=== PATIENT | male | born 1940 | race Caucasian/White ===

== ENCOUNTER → 2019-06-15 | Outpatient (CLI) | payer MEDICARE, BC ==
[2019-06-15 23:21] LABS: African American GFR (CKD) 99.9 (60.0-200.0); Anion Gap 8.7 mmol/L (4.00-12.00); Calcium 9.5 mg/dL (8.7-10.3); Carbon Dioxide 29.3 mmol/L (21.6-31.8); Non-African American GFR(CKD) 86.2 (60.0-200.0); Potassium 3.6 mmol/L (3.5-5.5)
[2019-06-16 00:14] LABS: Hemoglobin A1C 9.8 % (4.0-6.0)
== END | disposition home or self-care (01) ==
LOC: LABWHC1 14:43
PROVIDERS: ATTEND Urology
DX: R73.9 Hyperglycemia, unspecified (principal); R97.20 Elevated prostate specific antigen [PSA]
CPT/HCPCS: 36415; 80048; 83036; 84153

== ENCOUNTER → 2019-12-18 | Outpatient (CLI) | payer MEDICARE, BC | END | disposition home or self-care (01) | LOC: LABWHC1 09:30 → MERGE 09:30 | PROVIDERS: ATTEND Internal Medicine Critical Care Medicine | DX: R05 Cough (principal); R06.02 Shortness of breath; R43.9 Unspecified disturbances of smell and taste; K92.89 Other specified diseases of the digestive system ==

== ENCOUNTER → 2019-12-27 | Outpatient (CLI) | payer MEDICARE, BC ==
--- NOTE | 2019-12-28 09:55 | ECHOF ---
Referral Reason:I50.9 CHF MEASUREMENTS -------- HEIGHT: 177.8 cm WEIGHT: 97.5 kg BP: RVIDd: 3.6 cm (< 3.3) IVSd: 1.1 cm (0.6 - 1.1) LVIDd: 4.0 cm (3.9 - 5.3) LVPWd: 1.3 cm (0.6 - 1.1) IVSs: 1.6 cm LVIDs: 2.2 cm LVPWs: 2.0 cm LAESV Index (A-L): 15.20 ml/m Ao Diam: 2.9 cm (2.0 - 3.7) AV Cusp: 1.9 cm (1.5 - 2.6) MV E Nirmal: 0.43 m/s MV DecT: 158 ms MV A Nirmal: 0.89 m/s MV E/A Ratio: 0.49 RAP: 5.00 mmHg RVSP: 30.35 mmHg FINDINGS -------- Sinus rhythm. This was a technically difficult study with suboptimal views. The left ventricular size is normal. There is mild concentric left ventricular hypertrophy. Overa ll left ventricular systolic function is normal with, an EF between 55 - 60 %. The diastolic fillin g pattern is normal for the age of the patient 8.23. The right ventricle is mildly enlarged. Normal LA size by volume 22+/-6 ml/m2. The right atrium was not well visualized. Lumason used Interatrial and interventricular septum intact. The aortic valve is trileaflet, and appears structurally normal. No aortic stenosis or regurgitation. The mitral valve is normal. No mitral regurgitation. Mild tricuspid regurgitation present. There is no evidence of pulmonary hypertension. The right v entricular systolic pressure, as measured by Doppler, is 30.35mmHg. There is no pulmonic regurgitation present. The aortic root size is normal. IVC Not well visulized. There is no pericardial effusion. CONCLUSIONS -------- 1. There is mild concentric left ventricular hypertrophy. 2. Overall left ventricular systolic function is normal with, an EF between 55 - 60 %. 3. The diastolic filling pattern is normal for the age of the patient 8.23 4. The right ventricle is mildly enlarged. 5. Normal LA size by volume 22+/-6 ml/m2. 6. Lumason used 7. The aortic valve is trileaflet, and appears structurally normal. No aortic stenosis or regurgitati on. 8. The mitral valve is normal. 9. Mild tricuspid regurgitation present. 10. There is no pericardial effusion. GEOPHYSICAL PROSPECTING PERMIT AGENT: Margaret Chapa RDCS
== END | disposition home or self-care (01) ==
LOC: RADECHMAIN 11:53
PROVIDERS: ATTEND Internal Medicine Critical Care Medicine
DX: I07.1 Rheumatic tricuspid insufficiency (principal)
CPT/HCPCS: C8929; Q9950; 93306

== ENCOUNTER 2019-12-31 14:06 | Inpatient (IN) | payer MEDICARE, BC ==
--- NOTE | 2019-12-31 14:48 | ED ---
General Adult HPI - General Chief complaint: Weakness Stated complaint: Chest Pain Time Seen by Provider: 12/31/19 14:21 Source: patient Mode of arrival: wheelchair Limitations: physical limitation - History of Present Illness Initial comments: 79-year-old male patient presents to the emergency department today with multiple complaints. Patient states that he is feeling run down, fatigued, short of breath, and weak. He is also reporting dizziness and nausea. States that he was recently diagnosed with congestive heart failure by his dairy tester. [facility] they have been giving him Lasix for the last 3-4 days to get some fluid off. States he has been having increased leg swelling which did improve with the Lasix. States that whenever he ambulates or does any physical activity become short of breath. He is reporting occasional sharp stabbing chest pains. Denies aggravating or relieving factors. He reports dizziness with standing. Denies any syncope. States he does have a persistent nonproductive cough. Denies any fever or chills. States he has been very nauseated and unable to eat or drink related to this. Denies any constipation or diarrhea. States he does feel bloated in his abdomen. Patient denies any recent rash, abdominal pain, nausea, vomiting, diarrhea, constipation, back pain, numbness, tingling, hematuria, dysuria, urinary urgency, urinary frequency, headache, visual changes, or any other complaints. - Related Data Home Medications Medication Instructions Recorded Confirmed Atorvastatin Calcium [Lipitor] 40 mg PO HS 12/31/19 12/31/19 Ergocalciferol (Vitamin D2) 50,000 unit PO SAN 12/31/19 12/31/19 [Drisdol] Furosemide [Lasix] 20 mg PO DAILY 12/31/19 12/31/19 Furosemide [Lasix] 40 mg PO DAILY 12/31/19 12/31/19 Insulin Glargine,Hum.rec.anlog 10 unit SQ DAILY 12/31/19 12/31/19 [Lantus Solostar] Levocetirizine Dihydrochloride 5 mg PO HS PRN 12/31/19 12/31/19 [Xyzal] Levothyroxine Sodium [Synthroid] 175 mcg PO [id number] 12/31/19 12/31/19 Metolazone [Zaroxolyn] 2.5 mg PO DAILY 12/31/19 12/31/19 Metoprolol Succinate [Toprol XL] 25 mg PO DAILY 12/31/19 12/31/19 Potassium Chloride ER [K-Dur 20] 20 meq PO DAILY 12/31/19 12/31/19 metFORMIN HCL 1,000 mg PO DAILY 12/31/19 12/31/19 Allergies Allergy/AdvReac Type Severity Reaction Status Date / Time Penicillins Allergy Swelling Verified 12/31/19 16:51 Review of Systems ROS Statement: Those systems with pertinent positive or pertinent negative responses have been documented in the HPI. ROS Other: All systems not noted in ROS Statement are negative. Past Medical History Past Medical History: Heart Failure, Diabetes Mellitus, Hyperlipidemia, Hypert ension History of Any Multi-Drug Resistant Organisms: None Reported Past Surgical History: Orthopedic Surgery Additional Past Surgical History / Comment(s): Thyroid removal Past Psychological History: No Psychological Hx Reported Smoking Status: Former smoker Past Alcohol Use History: Occasional Past Drug Use History: None Reported General Exam Limitations: physical limitation General appearance: alert, in no apparent distress, other (Physical well-develop ed, well-nourished adult male patient in no acute distress. Vital signs upon presentation are temperature 97.9F, pulse 110, respirations 18, blood pressure 135/86, pulse ox 96% on room air.) Eye exam: Present: normal appearance, PERRL, EOMI. Absent: scleral icterus, conjunctival injection, periorbital swelling ENT exam: Present: normal exam, normal oropharynx, mucous membranes moist Respiratory exam: Present: normal lung sounds bilaterally. Absent: respiratory distress, wheezes, rales, rhonchi, stridor Cardiovascular Exam: Present: normal rhythm, tachycardia, normal heart sounds. Absent: systolic murmur, diastolic murmur, rubs, gallop, clicks GI/Abdominal exam: Present: soft, distended, normal bowel sounds. Absent: tenderness, guarding, rebound, rigid Neurological exam: Present: alert, oriented X3, CN II-XII intact Psychiatric exam: Present: normal affect, normal mood Skin exam: Present: warm, dry, intact, normal color. Absent: rash Course Vital Signs 12/31/19 12/31/19 14:09 14:13 Temperature 97.9 F Pulse Rate 110 H Respiratory 18 20 Rate Blood Pressure 135/86 O2 Sat by Pulse 96 Oximetry EKG Findings - EKG Comments: EKG Findings:: EKG obtained at 1503 shows sinus tachycardia with a ventricular rate of 108, WA interval 176, QRS duration 80, QT 350, QTC 469. No evidence for ST elevation or depression. Medical Decision Making - Medical Decision Making 79-year-old male patient presents to the emergency department today for evaluation of generalized weakness, nausea, dizziness, abdominal distention, and shortness of breath. Physical examination did reveal abdominal distention, no tenderness. He did have edema to the bilateral lower extremities. Lung sounds are clear to auscultation. Labs reviewed and did reveal decreased platelet count of 47, elevated INR 1.6, sodium 129, potassium 3.0, BUN 21, glucose 251, lactic acid 4.4, calcium 7.8, bilirubin 3.0, alk phos 279, BNP is 380, initial troponin is negative at 0.012. CT abdomen and pelvis was obtained and did show evidence for a right renal mass with suspicious calcification. There is also possibility of lytic lesions to the pelvis. Patient will be admitted to the hospital for replacement of his potassium and sodium. Sodium will be replaced very gently due to recent diagnosis of heart failure. We will consult urology and oncology. Dr. Sarabia will be consulted as he is the patient's primary care physician. - Lab Data Result diagrams: 12/31/19 14:56 12/31/19 14:56 Lab Results 12/31/19 12/31/19 12/31/19 Range/Units 14:56 14:56 14:56 WBC 5.1 (3.8-10.6) k/uL RBC 4.35 (4.30-5.90) m/uL Hgb 12.5 L (13.0-17.5) gm/dL Hct 37.9 L (39.0-53.0) % MCV 87.2 (80.0-100.0) fL MCH 28.8 (25.0-35.0) pg MCHC 33.0 (31.0-37.0) g/dL RDW 14.7 (11.5-15.5) % Plt Count 47 L (150-450) k/uL Neutrophils % 73 % Lymphocytes % 15 % Monocytes % 9 % Eosinophils % 1 % Basophils % 1 % Neutrophils # 3.8 (1.3-7.7) k/uL Lymphocytes # 0.8 L (1.0-4.8) k/uL Monocytes # 0.4 (0-1.0) k/uL Eosinophils # 0.1 (0-0.7) k/uL Basophils # 0.0 (0-0.2) k/uL Hypochromasia Slight PT 15.7 H (9.0-12.0) sec INR 1.6 H (<1.2) APTT 30.1 H (22.0-30.0) sec Sodium 129 L (137-145) mmol/L Potassium 3.0 L (3.5-5.1) mmol/L Chloride 90 L (98-107) mmol/L Carbon Dioxide 27 (22-30) mmol/L Anion Gap 12 mmol/L BUN 21 H (9-20) mg/dL Creatinine 0.83 (0.66-1.25) mg/dL Est GFR (CKD-EPI)AfAm >90 (>60 ml/min/1.73 sqM) Est GFR (CKD-EPI)NonAf 84 (>60 ml/min/1.73 sqM) Glucose 251 H (74-99) mg/dL Lactic Ac Sepsis Rflx Plasma Lactic Acid Tee (0.7-2.0) mmol/L Calcium 7.8 L (8.4-10.2) mg/dL Magnesium 1.9 (1.6-2.3) mg/dL Total Bilirubin 3.0 H (0.2-1.3) mg/dL AST 58 (17-59) U/L ALT 22 (4-49) U/L Alkaline Phosphatase 279 H (38-126) U/L Troponin I (0.000-0.034) ng/mL NT-Pro-B Natriuret Pep pg/mL Total Protein 5.7 L (6.3-8.2) g/dL Albumin 2.7 L (3.5-5.0) g/dL 12/31/19 12/31/19 12/31/19 Range/Units 14:56 14:56 14:56 WBC (3.8-10.6) k/uL RBC (4.30-5.90) m/uL Hgb (13.0-17.5) gm/dL Hct (39.0-53.0) % MCV (80.0-100.0) fL MCH (25.0-35.0) pg MCHC (31.0-37.0) g/dL RDW (11.5-15.5) % Plt Count (150-450) k/uL Neutrophils % % Lymphocytes % % Monocytes % % Eosinophils % % Basophils % % Neutrophils # (1.3-7.7) k/uL Lymphocytes # (1.0-4.8) k/uL Monocytes # (0-1.0) k/uL Eosinophils # (0-0.7) k/uL Basophils # (0-0.2) k/uL Hypochromasia PT (9.0-12.0) sec INR (<1.2) APTT (22.0-30.0) sec Sodium (137-145) mmol/L Potassium (3.5-5.1) mmol/L Chloride (98-107) mmol/L Carbon Dioxide (22-30) mmol/L Anion Gap mmol/L BUN (9-20) mg/dL Creatinine (0.66-1.25) mg/dL Est GFR (CKD-EPI)AfAm (>60 ml/min/1.73 sqM) Est GFR (CKD-EPI)NonAf (>60 ml/min/1.73 sqM) Glucose (74-99) mg/dL Lactic Ac Sepsis Rflx Plasma Lactic Acid Tee 4.4 H* (0.7-2.0) mmol/L Calcium (8.4-10.2) mg/dL Magnesium (1.6-2.3) mg/dL Total Bilirubin (0.2-1.3) mg/dL AST (17-59) U/L ALT (4-49) U/L Alkaline Phosphatase (38-126) U/L Troponin I <0.012 (0.000-0.034) ng/mL NT-Pro-B Natriuret Pep 380 pg/mL Total Protein (6.3-8.2) g/dL Albumin (3.5-5.0) g/dL 12/31/19 Range/Units 15:39 WBC (3.8-10.6) k/uL RBC (4.30-5.90) m/uL Hgb (13.0-17.5) gm/dL Hct (39.0-53.0) % MCV (80.0-100.0) fL MCH (25.0-35.0) pg MCHC (31.0-37.0) g/dL RDW (11.5-15.5) % Plt Count (150-450) k/uL Neutrophils % % Lymphocytes % % Monocytes % % Eosinophils % % Basophils % % Neutrophils # (1.3-7.7) k/uL Lymphocytes # (1.0-4.8) k/uL Monocytes # (0-1.0) k/uL Eosinophils # (0-0.7) k/uL Basophils # (0-0.2) k/uL Hypochromasia PT (9.0-12.0) sec INR (<1.2) APTT (22.0-30.0) sec Sodium (137-145) mmol/L Potassium (3.5-5.1) mmol/L Chloride (98-107) mmol/L Carbon Dioxide (22-30) mmol/L Anion Gap mmol/L BUN (9-20) mg/dL Creatinine (0.66-1.25) mg/dL Est GFR (CKD-EPI)AfAm (>60 ml/min/1.73 sqM) Est GFR (CKD-EPI)NonAf (>60 ml/min/1.73 sqM) Glucose (74-99) mg/dL Lactic Ac Sepsis Rflx Y Plasma Lactic Acid Tee (0.7-2.0) mmol/L Calcium (8.4-10.2) mg/dL Magnesium (1.6-2.3) mg/dL Total Bilirubin (0.2-1.3) mg/dL AST (17-59) U/L ALT (4-49) U/L Alkaline Phosphatase (38-126) U/L Troponin I (0.000-0.034) ng/mL NT-Pro-B Natriuret Pep pg/mL Total Protein (6.3-8.2) g/dL Albumin (3.5-5.0) g/dL - Radiology Data Radiology results: report reviewed, image reviewed Two-view x-ray of the chest is obtained. Report reviewed in its entirety. Impression by Dr. Crane shows question small effusions and associated atelectasis, correlate to exclude pneumonia. CT abdomen and pelvis is obtained report was reviewed in its entirety. Impression by Dr. Walton shows no bowel instruction. Hepatosplenomegaly with possible fatty infiltration of the liver underlying hepatocellular disease. Correlate clinically. Cannot exclude infiltrative process or disease in the spleen versus diminished perfusion. Small to moderate amount of pelvic ascites. Small amount diffuse soft tissue anasarca. Suspicious part exophytic cystic lesion lower pole right kidney, at least Bosniak type III lesion. Surgical referral advised. Subtle nonspecific lytic lesions, lytic metastatic disease not excluded particularly given above #3 finding. Disposition Clinical Impression: Right kidney mass, Hyponatremia, Hypokalemia, Ascites Disposition: ADMITTED IP TO THIS HOSP Condition: Serious Referrals: Donald Sarabia DO [Primary Care Provider] - 1-2 days Decision to Admit Reason: Admit from EC Decision Date: 12/31/19 Decision Time: 18:17
[2019-12-31 15:20] LABS: Basophils % (A) 1 %; Eosinophils # (A) 0.1 k/uL (0-0.7); Eosinophils % (A) 1 %; HCT 37.9 % (39.0-53.0); Hypochromasia Slight; Lymphocytes # (A) 0.8 k/uL (1.0-4.8); Lymphocytes % (A) 15 %; MCH 28.8 pg (25.0-35.0); MCV 87.2 fL (80.0-100.0); Mean Platelet Volume 11.5; Monocytes # (A) 0.4 k/uL (0-1.0); Monocytes % (A) 9 %; Neutrophils # (A) 3.8 k/uL (1.3-7.7); Neutrophils % (A) 73 %; RBC 4.35 m/uL (4.30-5.90); RDW 14.7 % (11.5-15.5); WBC 5.1 k/uL (3.8-10.6)
[2019-12-31 15:26] LABS: HGB 12.5 gm/dL (13.0-17.5)
[2019-12-31 15:27] LABS: Platelet Count 47 k/uL (150-450)
[2019-12-31 15:31] LABS: INR 1.6 (<1.2); Partial Thromboplastin Time 30.1 sec (22.0-30.0); Prothrombin Time 15.7 sec (9.0-12.0)
[2019-12-31 15:32] LABS: AST 58 U/L (17-59); African American GFR (CKD) >90 (>60 ml/min/1.73 sqM); Albumin 2.7 g/dL (3.5-5.0); Alkaline Phosphatase 279 U/L (38-126); Anion Gap 12 mmol/L; Blood Urea Nitrogen 21 mg/dL (9-20); Calcium 7.8 mg/dL (8.4-10.2); Carbon Dioxide 27 mmol/L (22-30); Chloride 90 mmol/L (98-107); Glucose 251 mg/dL (74-99); Magnesium 1.9 mg/dL (1.6-2.3); Non-African American GFR(CKD) 84 (>60 ml/min/1.73 sqM); Sodium 129 mmol/L (137-145); Total Protein 5.7 g/dL (6.3-8.2)
--- NOTE | 2019-12-31 15:38 | XR ---
EXAMINATION TYPE: XR chest 2V DATE OF EXAM: 12/31/2019 COMPARISON: R chest x-ray 12/26/2019 HISTORY: Cough TECHNIQUE: Frontal and lateral views of the chest are obtained. FINDINGS: There is blunting the costophrenic angle similar to prior exam. Lung IMs are low. No evide nt pneumothorax. Cardiac mediastinal silhouette, pulmonary vascularity and ryne not significant harris ed. There are overlying cardiac leads. Minimal patchy basilar density is noted. IMPRESSION: Question small effusions and associated atelectasis, correlate to exclude pneumonia.
[2019-12-31 15:39] LABS: ALT 22 U/L (4-49)
[2019-12-31] MEDS ORDERED: ONDANSETRON 4 MG/2 ML VIAL IVP STA (15:56)
[2019-12-31] MEDS ORDERED: Potassium Replacement Protocol 1 EACH MISC MISCELLANE PRN (15:56)
[2019-12-31] MEDS: POTASSIUM CHLORIDE 10 MEQ in WATER FOR INJECTION 1 100ML.BAG IVPB SCH ×3 (17:29→19:56)
--- NOTE | 2019-12-31 17:44 | CT ---
EXAMINATION TYPE: CT abdomen pelvis w con DATE OF EXAM: 12/31/2019 COMPARISON: None. HISTORY: Abdominal distention, nausea. CT DLP: 1608.6 mGycm, Automated Exposure Control for Dose Reduction was Utilized. CONTRAST: CT scan of the abdomen and pelvis is performed without oral but with IV Contrast, patient injected wi th 100 mL of Isovue 300. FINDINGS: LUNG BASES: There are at least small right greater left pleural effusions with associated compressive atelectasis.. LIVER/GB: Enlarged liver that is heterogeneously hypodense. Small amount of ascites along the right i nferior margin. PANCREAS: No significant abnormality is seen. SPLEEN: Enlarged heterogeneous hypodense spleen measuring 18.2 cm long axis coronal image 70. ADRENALS: Slightly asymmetric thickening left adrenal gland could reflect benign lipid rich hyperplas ia. KIDNEYS: Central 9 mm calcification right kidney axial image 52 could reflect vascular calcification or lower pole calculus. Symmetric cortical medullary uptake without hydronephrosis seen bilaterally. Simple appearing 2.3 cm thin-walled cyst upper pole left kidney delayed axial image 38. Exophytically from lower pole right kidney medially there is large cystic lesion measuring roughly 13 x 12.5 x 12. 5 cm with suspicious 1.4 cm solid nodular hyperdense probable enhancing component coronal image 45 al tono the superior aspect. Unremarkable bladder. BOWEL: Suboptimal evaluation without enteric contrast. No suspicious small or large bowel dilatation. . PROSTATE/SEMINAL VESICLES: Mildly enlarged bulging on bladder base. LYMPH NODES: No greater than 1cm abdominal or pelvic lymph nodes are appreciated. OSSEOUS STRUCTURES: Some sclerosis along the bilateral sacroiliac joints. Prominent multilevel spurri ng in the thoracic spine. Few nonspecific subtle lytic lesions for reference right iliac bone coronal image 91 and superior ant erior L4 vertebra sagittal image 72. OTHER: Small to moderate amount of pelvic ascites. Mild to borderline moderate diffuse subcutaneous edema or soft tissue anasarca. Oval well-defined 4.6 x 2.4 x 8.0 cm lesion axial image 40 but reflect posterior subcutaneous lipoma IMPRESSION: 1. No bowel obstruction. 2. Hepatosplenomegaly with possible fatty infiltration of the liver or underlying hepatocellular dise ase. Correlate clinically. Cannot exclude infiltrative process or disease in the spleen versus dimini shed perfusion. [id number] amount of pelvic ascites. Small amount of diffuse soft tissue anasa rca. 3. Suspicious large exophytic cystic lesion lower pole right kidney, at least Bosniak type III lesion . Surgical referral advised. 4. Subtle nonspecific lytic lesions, lytic metastatic disease cannot be excluded particularly given a jesse #3 Finding.
[2019-12-31] MEDS ORDERED: ONDANSETRON 4 MG/2 ML VIAL IVP PRN (18:09)
[2019-12-31] MEDS ORDERED: NALOXONE 0.4 MG/ML 1 ML VIAL IV PRN (18:09)
[2019-12-31 19:03] LABS: Appearance,Urine Clear (Clear); Bacteria,Urine Rare /hpf; Bilirubin,Urine 1+ (Negative); Blood,Urine Trace (Negative); Color,Urine Yellow; Glucose,Urine (UA) Negative (Negative); Hyaline Casts,Urine 58 /lpf (0-2); Ketones,Urine Negative (Negative); Leukocyte Esterase,Urine Negative (Negative); Mucus,Urine Occasional /hpf; Nitrite,Urine Negative (Negative); Protein,Urine 1+ (Negative); RBC,Urine 5 /hpf (0-5); Squamous Epithelial Cell,Urine <1 /hpf (0-4); WBC,Urine 4 /hpf (0-5)
[2019-12-31 19:04] LABS: Specific Gravity,Urine >1.050 (1.001-1.035)
[2019-12-31] MEDS: SODIUM CHLORIDE 0.9% 500 ML 500 ML IV SCH (19:56)
[2020-01-01] MEDS: POTASSIUM CHLORIDE 10 MEQ in WATER FOR INJECTION 1 100ML.BAG IVPB SCH (00:02)
[2020-01-01 04:58] LABS: ALT 17 U/L (4-49); AST 58 U/L (17-59); African American GFR (CKD) >90 (>60 ml/min/1.73 sqM); Albumin 2.7 g/dL (3.5-5.0); Alkaline Phosphatase 250 U/L (38-126); Anion Gap 11 mmol/L; Blood Urea Nitrogen 23 mg/dL (9-20); Calcium 7.6 mg/dL (8.4-10.2); Carbon Dioxide 25 mmol/L (22-30); Chloride 91 mmol/L (98-107); Glucose 179 mg/dL (74-99); Non-African American GFR(CKD) 83 (>60 ml/min/1.73 sqM); Potassium 3.3 mmol/L (3.5-5.1); Sodium 127 mmol/L (137-145); Total Bilirubin 2.6 mg/dL (0.2-1.3); Total Protein 5.6 g/dL (6.3-8.2)
[2020-01-01 06:05] LABS: Glucose,Whole Blood 183 mg/dL (75-99)
[2020-01-01] MEDS ORDERED: LORATADINE 10 MG TAB PO PRN (06:20)
[2020-01-01] MEDS ORDERED: POTASSIUM CHLORIDE ER 20 MEQ TAB.ER PO STA (06:21)
[2020-01-01] MEDS: LEVOTHYROXINE 50 MCG TAB PO SCH (06:36)
[2020-01-01] MEDS: INSULIN ASPART (NovoLOG) 100 UNIT/ML VIAL SQ SCH ×4 (06:37→22:03)
[2020-01-01] MEDS: INSULIN DETEMIR (LEVEMIR) 100 UNIT/ML SYR SQ SCH (06:42)
[2020-01-01] MEDS ORDERED: HEPARIN SODIUM,PORCINE 5,000 UNIT/ML 1 ML VIAL SQ SCH (09:00)
[2020-01-01] MEDS ORDERED: metFORMIN 500 MG TAB PO SCH (09:00)
[2020-01-01] MEDS: FAMOTIDINE 20 MG TAB PO SCH ×2 (09:06→21:24)
[2020-01-01] MEDS: METOPROLOL SUCCINATE (ER) 25 MG TAB.ER.24H PO SCH (09:06)
--- NOTE | 2020-01-01 10:21 | P.GSCN ---
History of Present Illness Consult date: 01/01/20 Reason for Consult: Right renal mass History of present illness: The patient is a 79-year-old male admitted through the emergency room last night for evaluation of increasing weakness associated with congestive heart failure and increasing pedal edema. As part of his evaluation in the emergency room a computed tomography scan of the abdomen and pelvis with IV contrast was obtained. The patient was discovered to have a 13 cm cystic growth arising from the lower pole of the right kidney. A 1.4 cm enhancing nodule was noted in the cyst wall and was suggestive of renal cell carcinoma arising in a cyst. I was asked to see the patient for further evaluation. The patient says he's had increasing weakness over the last 2-3 weeks. Proxi kelsie 2 weeks ago he developed bilateral leg edema. He was seen by Dr. Medina and was started on Lasix. Despite this he continued to have reduced energy and increasing nausea. He was directed to come to the emergency room for evaluation. In the emergency room he was noted to have a total bilirubin of 2.6, alkaline phosphatase of 250, total protein of 5.6 and albumin of 2.7. In addition to the renal abnormality described above the patient was noted to have right pleural effusion and some ascites. Images of the bones suggested a possible 1 cm lytic lesion in the right iliac bone. Patient has no previous imaging of his abdomen for comparison. The patient has no history of gross hematuria but believes he may have been noted to have microscopic hematuria by Dr. Foster in the past. He says he usually voids every 1-2 hours in the morning after he drinks his coffee and then every 2 or 3 hours later in the day. Usually voids 1-3 times at night depending on his fluid intake. Recently he has noted increasing hesitancy and urgency. He says that he has lost some weight since he was started on Lasix. Review of Systems - Constitutional Reports anorexia, Reports fatigue, Reports lethargy, Reports weight gain - Cardiovascular Reports edema, Reports high blood pressure, Reports shortness of breath, Denies chest pain, Denies orthopnea, Denies syncope - Respiratory Denies cough, Denies wheezing - Gastrointestinal Reports early satiety, Reports loss of appetite, Denies abdominal pain - Genitourinary Reports urinary hesitancy, Denies flank pain, Denies hematuria Past Medical History Past Medical History: Heart Failure, Diabetes Mellitus, Hyperlipidemia, Hypertension History of Any Multi-Drug Resistant Organisms: None Reported Past Surgical History: Orthopedic Surgery Additional Past Surgical History / Comment(s): Thyroid removal and arthroscopy left knee Past Psychological History: No Psychological Hx Reported Smoking Status: Former smoker (Quit smoking 40 years ago), Never smoker Past Alcohol Use History: Occasional Past Drug Use History: None Reported Medications and Allergies Home Medications Medication Instructions Recorded Confirmed Type Atorvastatin Calcium [Lipitor] 40 mg PO HS 12/31/19 12/31/19 History Ergocalciferol (Vitamin D2) 50,000 unit PO SAN 12/31/19 12/31/19 History [Drisdol] Furosemide [Lasix] 20 mg PO DAILY 12/31/19 12/31/19 History Furosemide [Lasix] 40 mg PO DAILY 12/31/19 12/31/19 History Insulin Glargine,Hum.rec.anlog 10 unit SQ DAILY 12/31/19 12/31/19 History [Lantus Solostar] Levocetirizine Dihydrochloride 5 mg PO HS PRN 12/31/19 12/31/19 History [Xyzal] Levothyroxine Sodium [Synthroid] 175 mcg PO MOTUWETHFRSA 12/31/19 12/31/19 History Metolazone [Zaroxolyn] 2.5 mg PO DAILY 12/31/19 12/31/19 History Metoprolol Succinate [Toprol XL] 25 mg PO DAILY 12/31/19 12/31/19 History Potassium Chloride ER [K-Dur 20] 20 meq PO DAILY 12/31/19 12/31/19 History metFORMIN HCL 1,000 mg PO DAILY 12/31/19 12/31/19 History Allergies Allergy/AdvReac Type Severity Reaction Status Date / Time Penicillins Allergy Swelling Verified 12/31/19 16:51 Surgical - Exam Vital Signs Temp Pulse Resp BP Pulse Ox 97.9 F 110 H 18 135/86 96 12/31/19 14:09 12/31/19 14:09 12/31/19 14:09 12/31/19 14:09 12/31/19 14:09 - General well developed, well nourished, no distress - ENT no hearing loss - Neck no masses, no lymphadectomy - Respiratory normal respiratory effort - Abdomen Abdomen: no tender, no masses, distended Hernia: none - Genitourinary normal penis with no external lesions, testicles non-tender Results - Labs 12/31/19 14:56 01/01/20 04:13 Abnormal Lab Results - Last 24 Hours (Table) 12/31/19 12/31/19 12/31/19 Range/Units 14:56 14:56 14:56 Hgb 12.5 L (13.0-17.5) gm/dL Hct 37.9 L (39.0-53.0) % Plt Count 47 L (150-450) k/uL Lymphocytes # 0.8 L (1.0-4.8) k/uL PT 15.7 H (9.0-12.0) sec INR 1.6 H (<1.2) APTT 30.1 H (22.0-30.0) sec Sodium 129 L (137-145) mmol/L Potassium 3.0 L (3.5-5.1) mmol/L Chloride 90 L (98-107) mmol/L BUN 21 H (9-20) mg/dL Glucose 251 H (74-99) mg/dL POC Glucose (mg/dL) (75-99) mg/dL Plasma Lactic Acid Tee (0.7-2.0) mmol/L Calcium 7.8 L (8.4-10.2) mg/dL Total Bilirubin 3.0 H (0.2-1.3) mg/dL Alkaline Phosphatase 279 H (38-126) U/L Total Protein 5.7 L (6.3-8.2) g/dL Albumin 2.7 L (3.5-5.0) g/dL Ur Specific [place] (1.001-1.035) Urine Protein (Negative) Urine Blood (Negative) Urine Bilirubin (Negative) Urine Bacteria (None) /hpf Hyaline Casts (0-2) /lpf Urine Mucus (None) /hpf 12/31/19 12/31/19 12/31/19 Range/Units 14:56 17:13 18:45 Hgb (13.0-17.5) gm/dL Hct (39.0-53.0) % Plt Count (150-450) k/uL Lymphocytes # (1.0-4.8) k/uL PT (9.0-12.0) sec INR (<1.2) APTT (22.0-30.0) sec Sodium (137-145) mmol/L Potassium (3.5-5.1) mmol/L Chloride (98-107) mmol/L BUN (9-20) mg/dL Glucose (74-99) mg/dL POC Glucose (mg/dL) (75-99) mg/dL Plasma Lactic Acid Tee 4.4 H* 7.8 H* (0.7-2.0) mmol/L Calcium (8.4-10.2) mg/dL Total Bilirubin (0.2-1.3) mg/dL Alkaline Phosphatase (38-126) U/L Total Protein (6.3-8.2) g/dL Albumin (3.5-5.0) g/dL Ur Specific [place] >1.050 H (1.001-1.035) Urine Protein 1+ H (Negative) Urine Blood Trace H (Negative) Urine Bilirubin 1+ H (Negative) Urine Bacteria Rare H (None) /hpf Hyaline Casts 58 H (0-2) /lpf Urine Mucus Occasional H (None) /hpf 12/31/19 01/01/20 01/01/20 Range/Units 21:36 00:31 04:13 Hgb (13.0-17.5) gm/dL Hct (39.0-53.0) % Plt Count (150-450) k/uL Lymphocytes # (1.0-4.8) k/uL PT (9.0-12.0) sec INR (<1.2) APTT (22.0-30.0) sec Sodium 127 L (137-145) mmol/L Potassium 3.3 L (3.5-5.1) mmol/L Chloride 91 L (98-107) mmol/L BUN 23 H (9-20) mg/dL Glucose 179 H (74-99) mg/dL POC Glucose (mg/dL) (75-99) mg/dL Plasma Lactic Acid Tee 6.0 H* 4.6 H* (0.7-2.0) mmol/L Calcium 7.6 L (8.4-10.2) mg/dL Total Bilirubin 2.6 H (0.2-1.3) mg/dL Alkaline Phosphatase 250 H (38-126) U/L Total Protein 5.6 L (6.3-8.2) g/dL Albumin 2.7 L (3.5-5.0) g/dL Ur Specific [place] (1.001-1.035) Urine Protein (Negative) Urine Blood (Negative) Urine Bilirubin (Negative) Urine Bacteria (None) /hpf Hyaline Casts (0-2) /lpf Urine Mucus (None) /hpf 01/01/20 01/01/20 01/01/20 Range/Units 04:13 06:04 07:03 Hgb (13.0-17.5) gm/dL Hct (39.0-53.0) % Plt Count (150-450) k/uL Lymphocytes # (1.0-4.8) k/uL PT (9.0-12.0) sec INR (<1.2) APTT (22.0-30.0) sec Sodium (137-145) mmol/L Potassium (3.5-5.1) mmol/L Chloride (98-107) mmol/L BUN (9-20) mg/dL Glucose (74-99) mg/dL POC Glucose (mg/dL) 183 H (75-99) mg/dL Plasma Lactic Acid Tee 3.4 H* 2.5 H* (0.7-2.0) mmol/L Calcium (8.4-10.2) mg/dL Total Bilirubin (0.2-1.3) mg/dL Alkaline Phosphatase (38-126) U/L Total Protein (6.3-8.2) g/dL Albumin (3.5-5.0) g/dL Ur Specific [place] (1.001-1.035) Urine Protein (Negative) Urine Blood (Negative) Urine Bilirubin (Negative) Urine Bacteria (None) /hpf Hyaline Casts (0-2) /lpf Urine Mucus (None) /hpf Diabetes panel 12/31/19 01/01/20 Range/Units 14:56 04:13 Sodium 129 L 127 L (137-145) mmol/L Potassium 3.0 L 3.3 L (3.5-5.1) mmol/L Chloride 90 L 91 L (98-107) mmol/L Carbon Dioxide 27 25 (22-30) mmol/L BUN 21 H 23 H (9-20) mg/dL Creatinine 0.83 0.86 (0.66-1.25) mg/dL Glucose 251 H 179 H (74-99) mg/dL Calcium 7.8 L 7.6 L (8.4-10.2) mg/dL AST 58 58 (17-59) U/L ALT 22 17 (4-49) U/L Alkaline Phosphatase 279 H 250 H (38-126) U/L Total Protein 5.7 L 5.6 L (6.3-8.2) g/dL Albumin 2.7 L 2.7 L (3.5-5.0) g/dL Calcium panel 12/31/19 01/01/20 Range/Units 14:56 04:13 Calcium 7.8 L 7.6 L (8.4-10.2) mg/dL Albumin 2.7 L 2.7 L (3.5-5.0) g/dL Pituitary panel 12/31/19 01/01/20 Range/Units 14:56 04:13 Sodium 129 L 127 L (137-145) mmol/L Potassium 3.0 L 3.3 L (3.5-5.1) mmol/L Chloride 90 L 91 L (98-107) mmol/L Carbon Dioxide 27 25 (22-30) mmol/L BUN 21 H 23 H (9-20) mg/dL Creatinine 0.83 0.86 (0.66-1.25) mg/dL Glucose 251 H 179 H (74-99) mg/dL Calcium 7.8 L 7.6 L (8.4-10.2) mg/dL Adrenal panel 12/31/19 01/01/20 Range/Units 14:56 04:13 Sodium 129 L 127 L (137-145) mmol/L Potassium 3.0 L 3.3 L (3.5-5.1) mmol/L Chloride 90 L 91 L (98-107) mmol/L Carbon Dioxide 27 25 (22-30) mmol/L BUN 21 H 23 H (9-20) mg/dL Creatinine 0.83 0.86 (0.66-1.25) mg/dL Glucose 251 H 179 H (74-99) mg/dL Calcium 7.8 L 7.6 L (8.4-10.2) mg/dL Total Bilirubin 3.0 H 2.6 H (0.2-1.3) mg/dL AST 58 58 (17-59) U/L ALT 22 17 (4-49) U/L Alkaline Phosphatase 279 H 250 H (38-126) U/L Total Protein 5.7 L 5.6 L (6.3-8.2) g/dL Albumin 2.7 L 2.7 L (3.5-5.0) g/dL - Imaging CT scan - abdomen: image reviewed Assessment and Plan (1) Right kidney mass Narrative/Plan: I explained to the patient that there is at least a 50% likelihood that the nodule present in the wall of the right renal cyst represents a carcinoma. It's unclear how long it has been present as the patient has no previous imaging for comparison. The patient has no evidence of retroperitoneal adenopathy. His right pleural effusion and ascites may be related to underlying liver disease. The abnormality noted in the right iliac bone is nonspecific but it would be reasonable to obtain a bone scan and computed tomography scan of the chest to ensure the patient has no evidence of metastatic disease. I discussed further observation versus surgical removal. At least at the present time there is no urgency for treatment of the right renal mass, especially in view of the patient's congestive heart failure and probable underlying liver disease.. The patient has seen Dr. Foster previously and I will let him know of his admission. Current Visit: Yes Status: Acute Code(s): N28.89 - OTHER SPECIFIED DISORDERS OF KIDNEY AND URETER SNOMED Code(s): 932017239
[2020-01-01] MEDS ORDERED: RX INFO: IV CONTRAST WAS GIVEN 1 EACH MISC MISCELLANE PRN (11:28)
[2020-01-01 12:16] LABS: Glucose,Whole Blood 179 mg/dL (75-99)
[2020-01-01 14:20] LABS: Hemoglobin A1C 9.2 % (4.0-6.0)
--- NOTE | 2020-01-01 15:04 | P.CNPUL ---
History of Present Illness Consult date: 01/01/20 Requesting physician: Unique Enamorado Reason for consult: other Chief complaint: Lower extremity swelling, weakness, nausea, loss of appetite History of present illness: 79-year-old white male patient with past medical history of essential hypertension, type 2 diabetes mellitus, hypothyroidism, hyperlipidemia, previous history of prostate cancer, former smoker, thyroid cancer status post thyroide ctomy and patient is now on thyroid replacement medications. Patient follows with Dr. Sarabia for primary care services. Patient follows with Dr. Janes Medina, and patient recently has been having increased issues with swelling of the lower extremities, increased abdominal fullness, and abdominal wall swelling, increased shortness of breath, and occasional dry nonproductive cough. And he was placed on Lasix without much improvement. He was recently placed on Zaroxolyn for persistent leg swelling and exertional dyspnea. His outpatient chest x-ray showed small bilateral pleural effusions. A recent, 12/18/2019 1 over his PCR was negative. On 12/31/2019 patient presented today emergency dep artment with multiple complaints, including feeling rundown, fatigued, shortness of breath and weakness, patient complains of a lack of appetite, complains of nausea, dizziness. Patient states that whenever he ambulates with does any physical activity he is very short of breath, is having occasional sharp stabbing chest pains. No syncopal episodes, no fever or chills. No constipation or diarrhea, no plans of bloating in the abdomen. Chest x-ray shows blunting of the costophrenic angles, consistent with small pleural effusions and associated atelectasis. Labs revealed white blood cell, 5.1, hemoglobin is 12.5, INR is 1.6, serum sodium is 129, potassium 3.0, chloride is 90, CO2 is 27, BUN is 21, creatinine 0.83, patient's lactic acid was elevated at 6.0, serum calcium was 7.8, magnesium 1.9, total bilirubin was elevated at 3.0, AST and ALT were within normal limits. Alkaline phosphatase was elevated at 279, troponin was negative at 0.02, proBNP was 380. Albumin was 2.7. Urinalysi s showed 1+ protein, trace blood, 1+ bilirubin, no significant white blood cell count, negative leuks, rare bacteria., No clear evidence of urinary tract infection. Afebrile, room air pulse ox 98%. Hemodynamically patient is stable, recent echocardiogram showed mild concentric LVH, EF is preserved at 55-60%, mild enlargement of the right ventricle, no aortic stenosis or regurgitation, normal mitral valve, mild tricuspid regurg no evidence of pulmonary hypertension with right-sided pressures of 30.3 mmHg. No pericardial effusion. Patient denies heavy alcohol intake, his daughter relays that she may have a few drinks in a week, not a heavy drinker. CT of the abdomen and pelvis showed hep atosplenomegaly with possible fatty infiltration of the liver and underlying hepatic cellular disease, could not exclude infiltrative process or disease in the spleen versus diminished perfusion. There was small to moderate amount of pelvic ascites, and small amount of diffuse soft tissue anasarca. There was a large exophytic cystic lesion at the lower pole of the right kidney and a surgical evaluation was recommended. And there was subtle nonspecific lytic lesions, with consideration of metastatic disease. On today's evaluation patient is sitting up in bed, appears to be in no acute distress, still has significant swelling in the lower extremities, 1-2+, and abdominal wall, he is on room air, does become dyspneic with exertion, but appears to be comfortable at rest, blood pressure 115/72, patient is afebrile, his incentive mechanism on the monitor with a controlled rate, denies any chest pain, only occasional cough, his diuretics are on hold, patient is receiving gentle hydration with 0.9 normal saline at a rate of 50 ML per hour. Today's sodium is 127. No seizures, no neurologic deficits, patient is providing detailed medical history. Review of Systems All systems: negative Constitutional: Denies chills, Denies fever Eyes: denies blurred vision, denies pain Ears, nose, mouth and throat: Denies headache, Denies sore throat Cardiovascular: Reports decreased exercise tolerance, Reports dyspnea on exertion, Reports edema, Reports leg edema, Denies chest pain, Denies shortness of breath Respiratory: Denies cough Gastrointestinal: Reports bloating, Reports loss of appetite, Reports nausea, Denies abdominal pain, Denies diarrhea, Denies vomiting Musculoskeletal: Denies myalgias Musculoskeletal: bilateral: ankle swelling Integumentary: Denies pruritus, Denies rash Neurological: Denies numbness, Denies weakness Psychiatric: Denies anxiety, Denies depression Endocrine: Denies fatigue, Denies weight change Past Medical History Past Medical History: Heart Failure, Diabetes Mellitus, Hyperlipidemia, Hypertension History of Any Multi-Drug Resistant Organisms: None Reported Past Surgical History: Orthopedic Surgery Additional Past Surgical History / Comment(s): Thyroid removal and arthroscopy left knee Past Psychological History: No Psychological Hx Reported Smoking Status: Former smoker (Quit smoking 40 years ago), Never smoker Past Alcohol Use History: Occasional Past Drug Use History: None Reported Medications and Allergies Home Medications Medication Instructions Recorded Confirmed Type Atorvastatin Calcium [Lipitor] 40 mg PO HS 12/31/19 12/31/19 History Ergocalciferol (Vitamin D2) 50,000 unit PO SAN 12/31/19 12/31/19 History [Drisdol] Furosemide [Lasix] 20 mg PO DAILY 12/31/19 12/31/19 History Furosemide [Lasix] 40 mg PO DAILY 12/31/19 12/31/19 History Insulin Glargine,Hum.rec.anlog 10 unit SQ DAILY 12/31/19 12/31/19 History [Lantus Solostar] Levocetirizine Dihydrochloride 5 mg PO HS PRN 12/31/19 12/31/19 History [Xyzal] Levothyroxine Sodium [Synthroid] 175 mcg PO MOTUWETHFRSA 12/31/19 12/31/19 History Metolazone [Zaroxolyn] 2.5 mg PO DAILY 12/31/19 12/31/19 History Metoprolol Succinate [Toprol XL] 25 mg PO DAILY 12/31/19 12/31/19 History Potassium Chloride ER [K-Dur 20] 20 meq PO DAILY 12/31/19 12/31/19 History metFORMIN HCL 1,000 mg PO DAILY 12/31/19 12/31/19 History Allergies Allergy/AdvReac Type Severity Reaction Status Date / Time Penicillins Allergy Swelling Verified 12/31/19 16:51 Physical Exam Vitals: Vital Signs Temp Pulse Pulse Resp BP BP Pulse Ox 01/01/20 12:00 83 16 115/72 98 01/01/20 11:44 16 01/01/20 08:00 96.8 F L 88 16 132/68 96 01/01/20 03:06 97.7 F 87 18 127/68 93 L 01/01/20 00:00 97.9 F 86 18 135/75 95 12/31/19 20:00 79 18 12/31/19 19:41 98.1 F 79 18 139/85 99 12/31/19 19:23 88 20 129/75 96 12/31/19 18:00 20 96 12/31/19 17:00 20 96 12/31/19 16:13 98 20 128/87 96 12/31/19 15:13 20 Intake and Output 12/31/19 01/01/20 01/01/20 22:59 06:59 14:59 Intake Total 0.9 240 Balance 0.9 240 Intake: Amount of Fluid Infused ( 0.9 ml) Oral 240 Other: Voiding Method Urinal Urinal Weight 90.718 kg 91.2 kg 91.2 kg GENERAL EXAM: Alert, very pleasant, 79-year-old, sitting up on the bed, currently on room air, his pulse ox is 90% on room air, comfortable in no apparent distress. HEAD: Normocephalic/atraumatic. EYES: Normal reaction of pupils, equal size. Conjunctiva pink, sclera white. NOSE: Clear with pink turbinates. THROAT: No erythema or exudates. NECK: No masses, no JVD, no thyroid enlargement, no adenopathy. CHEST: No chest wall deformity. Symmetrical expansion. LUNGS: Equal air entry with no crackles, wheeze, rhonchi or dullness. CVS: Regular rate and rhythm, normal S1 and S2, no gallops, no murmurs, no rubs ABDOMEN: Soft, nontender, obese, and some distention and abdominal wall s welling. No hepatosplenomegaly, normal bowel sounds, no guarding or rigidity. EXTREMITIES: No clubbing, 1+ to 2+ lower extremity edema, no cyanosis, 2+ pulses and upper and lower extremities. MUSCULOSKELETAL: Muscle strength and tone normal. SPINE: No scoliosis or deformity SKIN: No rashes CENTRAL NERVOUS SYSTEM: Alert and oriented -3. No focal deficits, tone is normal in all 4 extremities. PSYCHIATRIC: Alert and oriented -3. Appropriate affect. Intact judgment and insight. Results - Laboratory Findings CBC and BMP: 12/31/19 14:56 01/01/20 04:13 PT/INR, D-dimer PT 15.7 sec (9.0-12.0) H 12/31/19 14:56 INR 1.6 (<1.2) H 12/31/19 14:56 Abnormal lab findings: Abnormal Labs 12/31/19 12/31/19 12/31/19 14:56 14:56 14:56 Hgb 12.5 L Hct 37.9 L Plt Count 47 L Lymphocytes # 0.8 L PT 15.7 H INR 1.6 H APTT 30.1 H Sodium 129 L Potassium 3.0 L Chloride 90 L BUN 21 H Glucose 251 H POC Glucose (mg/dL) Hemoglobin A1c Plasma Lactic Acid Tee Calcium 7.8 L Total Bilirubin 3.0 H Alkaline Phosphatase 279 H Ammonia Total Protein 5.7 L Albumin 2.7 L Ur Specific [place] Urine Protein Urine Blood Urine Bilirubin Urine Bacteria Hyaline Casts Urine Mucus 12/31/19 12/31/19 12/31/19 14:56 17:13 18:45 Hgb Hct Plt Count Lymphocytes # PT INR APTT Sodium Potassium Chloride BUN Glucose POC Glucose (mg/dL) Hemoglobin A1c Plasma Lactic Acid Tee 4.4 H* 7.8 H* Calcium Total Bilirubin Alkaline Phosphatase Ammonia Total Protein Albumin Ur Specific [place] >1.050 H Urine Protein 1+ H Urine Blood Trace H Urine Bilirubin 1+ H Urine Bacteria Rare H Hyaline Casts 58 H Urine Mucus Occasional H 12/31/19 01/01/20 01/01/20 21:36 00:31 04:13 Hgb Hct Plt Count Lymphocytes # PT INR APTT Sodium 127 L Potassium 3.3 L Chloride 91 L BUN 23 H Glucose 179 H POC Glucose (mg/dL) Hemoglobin A1c Plasma Lactic Acid Tee 6.0 H* 4.6 H* Calcium 7.6 L Total Bilirubin 2.6 H Alkaline Phosphatase 250 H Ammonia Total Protein 5.6 L Albumin 2.7 L Ur Specific [place] Urine Protein Urine Blood Urine Bilirubin Urine Bacteria Hyaline Casts Urine Mucus 01/01/20 01/01/20 01/01/20 04:13 04:13 06:04 Hgb Hct Plt Count Lymphocytes # PT INR APTT Sodium Potassium Chloride BUN Glucose POC Glucose (mg/dL) 183 H Hemoglobin A1c 9.2 H Plasma Lactic Acid Tee 3.4 H* Calcium Total Bilirubin Alkaline Phosphatase Ammonia Total Protein Albumin Ur Specific [place] Urine Protein Urine Blood Urine Bilirubin Urine Bacteria Hyaline Casts Urine Mucus 01/01/20 01/01/20 01/01/20 07:03 11:54 12:38 Hgb Hct Plt Count Lymphocytes # PT INR APTT Sodium Potassium Chloride BUN Glucose POC Glucose (mg/dL) 179 H Hemoglobin A1c Plasma Lactic Acid Tee 2.5 H* Calcium Total Bilirubin Alkaline Phosphatase Ammonia 43 H Total Protein Albumin Ur Specific [place] Urine Protein Urine Blood Urine Bilirubin Urine Bacteria Hyaline Casts Urine Mucus - Diagnostic Findings Chest x-ray: report reviewed, image reviewed Additional studies: CT of the abdomen and pelvis reviewed, EKG reviewed Assessment and Plan Plan: Assessment: #1. Dyspnea related to significant peripheral fluid retention, abdominal distention, and small pleural effusions, likely related to underlying liver disease. Did not improve with diuretic therapy #2. Suspect underlying chronic liver disease, CT of abdomen and pelvis showed hepatosplenomegaly with possible fatty infiltration of the liver or underlying hepaticellular disease. He presented with increased INR, increased peripheral fluid retention not improved with diuretic therapy, thrombocytopenia, and increased bilirubin and small amount of ascites #3. Large exophytic cystic lesion in the lower pole of the right kidney, urology swallowing #4. Subtle nonspecific lytic lesions, rule out metastatic disease, medical oncology consulted #5. Hyponatremia, likely related to diuretic therapy, diuretics are currently on hold, patient is receiving gentle IV hydration. #7. Small amount of ascites, hepatosplenomegaly #8. Hyperbilirubinemia #9. 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 Hyperlipidemia #11. 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 Type 2 diabetes mellitus #13. History of prostate cancer Plan: Suspect underlying hepatocellular disease, will obtain hepatitis panel, ceruloplasmin, TERRANCE, alpha-1 antitrypsin, ferritin level, total iron. Consult GI service. Diuretics remain on hold. Obtain ultrasound the liver. Chest x-ray shows small pleural effusions, no plans for thoracentesis although we'll consider for purposes of diagnosis. Fluid will likely be transudative in nature consistent with hepatic failure. We'll continue to follow the course I performed a history & physical examination of the patient and discussed their management with my nurse practitioner, Nathalie Villar. I reviewed the nurse practitioner's note and agree with the documented findings and plan of care. Chiquita ng sounds are positive for diminished breath sounds at the bases. The findings and the impression was discussed with the patient. I attest to the documentation by the nurse practitioner. Time with Patient: Greater than 30
--- NOTE | 2020-01-01 15:21 | CT ---
EXAMINATION TYPE: CT chest w con DATE OF EXAM: 01/01/2020 COMPARISON: Chest x-ray 12/26/2019 HISTORY: cancer staging CT DLP: 516.8 mGycm Automated exposure control for dose reduction was used. CONTRAST: CT scan of the chest is performed with IV Contrast, patient injected with 100 mL of Isovue 300. FINDINGS: LUNGS: The lungs are grossly clear, there is no concerning parenchymal mass or nodule identified. T here is a right pleural effusion, no pneumothorax, trace left pleural effusion. The tracheobronchial tree is patent. MEDIASTINUM: There are no greater than 1 cm hilar or mediastinal lymph nodes. No pericardial effusi on is seen. There are coronary calcifications present. AORTA: No additional significant abnormality is seen. OTHER: The liver is enlarged and heterogeneous in density, the spleen is also enlarged and shows het erogeneous appearance, there is trace ascites. Left axillary adenopathy is present IMPRESSION: Left axillary adenopathy. Hepatosplenomegaly, abnormal density within the liver and sple en as described in abdomen CT report. Pleural effusions right greater than left. Trace ascites.
[2020-01-01 17:00] LABS: Ferritin 105.6 ng/mL (22.0-322.0)
--- NOTE | 2020-01-01 17:02 | P.CONS ---
History of Present Illness - Reason for Consult Consult date: 01/01/20 Right renal mass and low platelets Requesting physician: Skye Villa - Chief Complaint many complaints - History of Present Illness Mr. Barcenas is a pleasant male who presented to emergency with complaints of persistent fatigue, feeling "run down", SOB on exertion, generalized weakness, dizziness with position changes and intermitent nausea, no emesis. He has been recently following closely with cardiology for new and exacerbated CHF. Treatment with lasix. Complaints also of non-productive cough, and decreased appetite related to the intermittent nausea. CT of abdomen and pelvis with IV contrast revealed a 13 cm cystic growth arising from the lower pole of the right kidney. A 1.4 cm enhancing nodule was noted in the cyst wall and was suggestive of renal cell carcinoma arising in a cyst. Chest imaging revealed right pleural effusion and some ascites. Images of the bones suggested a possible 1 cm lytic lesion in the right iliac bone. Because of the concern for underlying malignancy medical ncology has been consulted to further evaluate. Review of Systems A 14 point review of system assessed and completed and all negative except HPI Past Medical History Past Medical History: Heart Failure, Diabetes Mellitus, Hyperlipidemia, Hypertension History of Any Multi-Drug Resistant Organisms: None Reported Past Surgical History: Orthopedic Surgery Additional Past Surgical History / Comment(s): Thyroid removal and arthroscopy left knee Past Psychological History: No Psychological Hx Reported Smoking Status: Former smoker (Quit smoking 40 years ago), Never smoker Past Alcohol Use History: Occasional Past Drug Use History: None Reported Medications and Allergies Home Medications Medication Instructions Recorded Confirmed Type Atorvastatin Calcium [Lipitor] 40 mg PO HS 12/31/19 12/31/19 History Ergocalciferol (Vitamin D2) 50,000 unit PO SAN 12/31/19 12/31/19 History [Drisdol] Furosemide [Lasix] 20 mg PO DAILY 12/31/19 12/31/19 History Furosemide [Lasix] 40 mg PO DAILY 12/31/19 12/31/19 History Insulin Glargine,Hum.rec.anlog 10 unit SQ DAILY 12/31/19 12/31/19 History [Lantus Solostar] Levocetirizine Dihydrochloride 5 mg PO HS PRN 12/31/19 12/31/19 History [Xyzal] Levothyroxine Sodium [Synthroid] 175 mcg PO MOTUWETHFRSA 12/31/19 12/31/19 History Metolazone [Zaroxolyn] 2.5 mg PO DAILY 12/31/19 12/31/19 History Metoprolol Succinate [Toprol XL] 25 mg PO DAILY 12/31/19 12/31/19 History Potassium Chloride ER [K-Dur 20] 20 meq PO DAILY 12/31/19 12/31/19 History metFORMIN HCL 1,000 mg PO DAILY 12/31/19 12/31/19 History Allergies Allergy/AdvReac Type Severity Reaction Status Date / Time Penicillins Allergy Swelling Verified 12/31/19 16:51 Physical Exam Vitals: Vital Signs Temp Pulse Pulse Resp BP BP Pulse Ox 01/01/20 08:00 96.8 F L 88 16 132/68 96 01/01/20 03:06 97.7 F 87 18 127/68 93 L 01/01/20 00:00 97.9 F 86 18 135/75 95 12/31/19 20:00 79 18 12/31/19 19:41 98.1 F 79 18 139/85 99 12/31/19 19:23 88 20 129/75 96 12/31/19 18:00 20 96 12/31/19 17:00 20 96 12/31/19 16:13 98 20 128/87 96 12/31/19 15:13 20 12/31/19 14:13 20 12/31/19 14:09 97.9 F 110 H 18 135/86 96 Intake and Output 12/31/19 01/01/20 01/01/20 22:59 06:59 14:59 Intake Total 0.9 240 Balance 0.9 240 Intake: Amount of Fluid Infused ( 0.9 ml) Oral 240 Other: Voiding Method Urinal Urinal Weight 90.718 kg 91.2 kg 91.2 kg - Constitutional General appearance: cooperative, mild distress - EENT Eyes: EOMI, PERRLA, dentition normal ENT: hard of hearing, NA/AT, normal oropharynx - Neck Neck: normal ROM - Respiratory Respiratory: bilateral: diminished (mild increased effort) - Cardiovascular Rhythm: irregularly irregular leg Peripheral Edema: bilateral: 1+ - Gastrointestinal Abdominal Ascites noted General gastrointestinal: distended, soft, tenderness - Neurologic Neurologic: CNII-XII intact - Musculoskeletal Musculoskeletal: generalized weakness, strength equal bilaterally - Psychiatric Psychiatric: A&O x's 3, appropriate affect, intact judgment & insight Results CBC & Chem 7: 12/31/19 14:56 01/01/20 04:13 Labs: Abnormal Lab Results - Last 24 Hours (Table) 12/31/19 12/31/19 12/31/19 Range/Units 14:56 14:56 14:56 Hgb 12.5 L (13.0-17.5) gm/dL Hct 37.9 L (39.0-53.0) % Plt Count 47 L (150-450) k/uL Lymphocytes # 0.8 L (1.0-4.8) k/uL PT 15.7 H (9.0-12.0) sec INR 1.6 H (<1.2) APTT 30.1 H (22.0-30.0) sec Sodium 129 L (137-145) mmol/L Potassium 3.0 L (3.5-5.1) mmol/L Chloride 90 L (98-107) mmol/L BUN 21 H (9-20) mg/dL Glucose 251 H (74-99) mg/dL POC Glucose (mg/dL) (75-99) mg/dL Plasma Lactic Acid Tee (0.7-2.0) mmol/L Calcium 7.8 L (8.4-10.2) mg/dL Total Bilirubin 3.0 H (0.2-1.3) mg/dL Alkaline Phosphatase 279 H (38-126) U/L Total Protein 5.7 L (6.3-8.2) g/dL Albumin 2.7 L (3.5-5.0) g/dL Ur Specific [place] (1.001-1.035) Urine Protein (Negative) Urine Blood (Negative) Urine Bilirubin (Negative) Urine Bacteria (None) /hpf Hyaline Casts (0-2) /lpf Urine Mucus (None) /hpf 12/31/19 12/31/19 12/31/19 Range/Units 14:56 17:13 18:45 Hgb (13.0-17.5) gm/dL Hct (39.0-53.0) % Plt Count (150-450) k/uL Lymphocytes # (1.0-4.8) k/uL PT (9.0-12.0) sec INR (<1.2) APTT (22.0-30.0) sec Sodium (137-145) mmol/L Potassium (3.5-5.1) mmol/L Chloride (98-107) mmol/L BUN (9-20) mg/dL Glucose (74-99) mg/dL POC Glucose (mg/dL) (75-99) mg/dL Plasma Lactic Acid Tee 4.4 H* 7.8 H* (0.7-2.0) mmol/L Calcium (8.4-10.2) mg/dL Total Bilirubin (0.2-1.3) mg/dL Alkaline Phosphatase (38-126) U/L Total Protein (6.3-8.2) g/dL Albumin (3.5-5.0) g/dL Ur Specific [place] >1.050 H (1.001-1.035) Urine Protein 1+ H (Negative) Urine Blood Trace H (Negative) Urine Bilirubin 1+ H (Negative) Urine Bacteria Rare H (None) /hpf Hyaline Casts 58 H (0-2) /lpf Urine Mucus Occasional H (None) /hpf 12/31/19 01/01/20 01/01/20 Range/Units 21:36 00:31 04:13 Hgb (13.0-17.5) gm/dL Hct (39.0-53.0) % Plt Count (150-450) k/uL Lymphocytes # (1.0-4.8) k/uL PT (9.0-12.0) sec INR (<1.2) APTT (22.0-30.0) sec Sodium 127 L (137-145) mmol/L Potassium 3.3 L (3.5-5.1) mmol/L Chloride 91 L (98-107) mmol/L BUN 23 H (9-20) mg/dL Glucose 179 H (74-99) mg/dL POC Glucose (mg/dL) (75-99) mg/dL Plasma Lactic Acid Tee 6.0 H* 4.6 H* (0.7-2.0) mmol/L Calcium 7.6 L (8.4-10.2) mg/dL Total Bilirubin 2.6 H (0.2-1.3) mg/dL Alkaline Phosphatase 250 H (38-126) U/L Total Protein 5.6 L (6.3-8.2) g/dL Albumin 2.7 L (3.5-5.0) g/dL Ur Specific [place] (1.001-1.035) Urine Protein (Negative) Urine Blood (Negative) Urine Bilirubin (Negative) Urine Bacteria (None) /hpf Hyaline Casts (0-2) /lpf Urine Mucus (None) /hpf 01/01/20 01/01/20 01/01/20 Range/Units 04:13 06:04 07:03 Hgb (13.0-17.5) gm/dL Hct (39.0-53.0) % Plt Count (150-450) k/uL Lymphocytes # (1.0-4.8) k/uL PT (9.0-12.0) sec INR (<1.2) APTT (22.0-30.0) sec Sodium (137-145) mmol/L Potassium (3.5-5.1) mmol/L Chloride (98-107) mmol/L BUN (9-20) mg/dL Glucose (74-99) mg/dL POC Glucose (mg/dL) 183 H (75-99) mg/dL Plasma Lactic Acid Tee 3.4 H* 2.5 H* (0.7-2.0) mmol/L Calcium (8.4-10.2) mg/dL Total Bilirubin (0.2-1.3) mg/dL Alkaline Phosphatase (38-126) U/L Total Protein (6.3-8.2) g/dL Albumin (3.5-5.0) g/dL Ur Specific [place] (1.001-1.035) Urine Protein (Negative) Urine Blood (Negative) Urine Bilirubin (Negative) Urine Bacteria (None) /hpf Hyaline Casts (0-2) /lpf Urine Mucus (None) /hpf CT scan - abdomen: report reviewed CT scan - chest: report reviewed CT scan - pelvis: report reviewed Assessment and Plan Plan: Assessment and Recommendations: 1. New Renal Mass: Cystic Appearing 2. Concerning lesion in bone 3. Abdominal Ascites: - Paracentesis - if possible with minimal fluid sample for albumin and cytology - Underlying liver disease in differential with imaging revealing hepatomegaly 4. Liver Lesion: - Check AFP 5. Thrombocytopenia: - Platelets less than 50K - Hold all Anticoagulation and NSAIDS 6. Hyponatremia: - Dehydration versus SIADH PLan: - Tissue biopsy is needed to further define diagnosis - Concern for possible metastatic malignancy as well as underlying liver disease - paracentesis with cytology and albumin - Check AFP - Recheck coags and CBC - MRI of liver to further evaluate lesions in liver - Serum and urine lytes and osmolaritu, tsh and cortisol - Acute hepatitis panel Physician Attest: I have completed the full history and physical and agree with above dictation, dictated as a scribe.
[2020-01-01 17:04] LABS: Glucose,Whole Blood 217 mg/dL (75-99)
[2020-01-01 17:16] LABS: Basophils % (A) 0 %; Eosinophils # (A) 0.1 k/uL (0-0.7); Eosinophils % (A) 2 %; HGB 11.6 gm/dL (13.0-17.5); Hypochromasia Moderate; Lymphocytes # (A) 0.7 k/uL (1.0-4.8); Lymphocytes % (A) 13 %; MCH 28.7 pg (25.0-35.0); MCHC 32.2 g/dL (31.0-37.0); MCV 88.9 fL (80.0-100.0); Mean Platelet Volume 12.1; Monocytes # (A) 0.4 k/uL (0-1.0); Monocytes % (A) 7 %; Neutrophils # (A) 4.2 k/uL (1.3-7.7); Neutrophils % (A) 76 %; RBC 4.04 m/uL (4.30-5.90); RDW 14.8 % (11.5-15.5); Reticulocyte % 4.9 % (0.5-2.0); WBC 5.6 k/uL (3.8-10.6)
[2020-01-01 17:17] LABS: Platelet Count 46 k/uL (150-450)
[2020-01-01 17:29] LABS: INR 1.7 (<1.2); Partial Thromboplastin Time 31.6 sec (22.0-30.0); Prothrombin Time 16.6 sec (9.0-12.0)
[2020-01-01 17:38] LABS: Hepatitis A Ab, Total Non-Reactive (Non-Reactive); Hepatitis B Surface AB- Quant 3.5 mIU/mL; Hepatitis B Surface Antibody Non-Reactive (Non-Reactive); Hepatitis C IgG Antibody Non-Reactive (Non-Reactive)
[2020-01-01] MEDS: ATORVASTATIN 40 MG TAB PO SCH (21:24)
[2020-01-01] MEDS: SODIUM CHLORIDE 0.9% 500 ML 500 ML IV SCH (21:25)
[2020-01-01] MEDS: MELATONIN 5 MG TABLET PO SCH (22:03)
[2020-01-01 22:16] LABS: Glucose,Whole Blood 172 mg/dL (75-99)
--- NOTE | 2020-01-02 00:13 | P.HPIM ---
History of Present Illness H&P Date: 01/01/20 Chief Complaint: Generalized weakness and SOB Patient is 79-year-old male with a known history of hypertension, hyperlipidemia, diabetes type 2 insulin-dependent, hypothyroidism, CHF and prostate cancer diagnosed in 2007 came to ER with complaints of increasing fatigue, shortness of breath and increased abdominal girth. Patient was also having bilateral lower extremity swelling. Patient was recently seen by his support staff and was started on Lasix 3 to 4 days ago. His leg swelling did improve with Lasix. Patient states that he has been increasingly short of breath even with minimal activity and occasional sharp pains in the chest. Patient was also having dizziness with standing. No syncopal episode. Patient does have cough without sputum production. Denies any fever or chills. No nausea vomiting or diarrhea. No dysuria or hematuria. Denied any other recent illnesses. Patient was taking Lasix and Zaroxolyn at home. Laboratory data showed WBC 5.1, hemoglobin 12.5, platelets 47, INR 1.6, sodium 139, potassium 3.0 and chloride 90, BUN 21 and creatinine 0.83 Lactic acid 4.4 on admission Alk phos 279 Albumin 2.7 BNP 340 AST 58 and ALT 22 Urinalysis negative for infection Chest x-ray showed small effusions and associated atelectasis. Correlate to exclude pneumonia. CT of the abdomen pelvis showed no bowel obstruction. Hepatosplenomegaly with possible fatty infiltration of the liver are underlying hepatocellular disease. Correlate clinically. Cannot exclude infiltrative process or disease in the spleen versus diminished perfusion. Small to moderate amount of pelvic ascites. Small amount of diffuse soft tissue anasarca. Suspicious large exophytic cystic lesion lower pole right kidney at least Bosniak type III lesion. Surgical referral advised. Subtle nonspecific lytic lesions lytic metastatic disease cannot be excluded particularly given the above #3 finding. Review of Systems Constitutional: Patient denies any fever or chills . Generalized weakness and fatigue. Abdomen: Patient denied nausea vomiting and diarrhea and abdominal pain. Increased abdominal girth Cardiovascular: Patient denies any chest pain . + short of breath no palpitations.Leg swelling. Respiratory: Cough without sputum production and shortness of breath Neurologic: Patient denied any numbness or tingling headache. Musculoskeletal: Patient denies any complaints of joint swelling or deformity. Skin: Negative Psychiatric: Negative Endocrine: No heat or cold intolerance. No recent weight gain. Genitourinary: No dysuria or hematuria. All other 14 point ROS negative except the above Past Medical History Past Medical History: Heart Failure, Diabetes Mellitus, Hyperlipidemia, Hypertension History of Any Multi-Drug Resistant Organisms: None Reported Past Surgical History: Orthopedic Surgery Additional Past Surgical History / Comment(s): Thyroid removal and arthroscopy left knee Past Psychological History: No Psychological Hx Reported Smoking Status: Former smoker (Quit smoking 40 years ago), Never smoker Past Alcohol Use History: Occasional Past Drug Use History: None Reported Medications and Allergies Home Medications Medication Instructions Recorded Confirmed Type Atorvastatin Calcium [Lipitor] 40 mg PO HS 12/31/19 12/31/19 History Ergocalciferol (Vitamin D2) 50,000 unit PO SAN 12/31/19 12/31/19 History [Drisdol] Furosemide [Lasix] 20 mg PO DAILY 12/31/19 12/31/19 History Furosemide [Lasix] 40 mg PO DAILY 12/31/19 12/31/19 History Insulin Glargine,Hum.rec.anlog 10 unit SQ DAILY 12/31/19 12/31/19 History [Lantus Solostar] Levocetirizine Dihydrochloride 5 mg PO HS PRN 12/31/19 12/31/19 History [Xyzal] Levothyroxine Sodium [Synthroid] 175 mcg PO MOTUWETHFRSA 12/31/19 12/31/19 History Metolazone [Zaroxolyn] 2.5 mg PO DAILY 12/31/19 12/31/19 History Metoprolol Succinate [Toprol XL] 25 mg PO DAILY 12/31/19 12/31/19 History Potassium Chloride ER [K-Dur 20] 20 meq PO DAILY 12/31/19 12/31/19 History metFORMIN HCL 1,000 mg PO DAILY 12/31/19 12/31/19 History Allergies Allergy/AdvReac Type Severity Reaction Status Date / Time Penicillins Allergy Swelling Verified 12/31/19 16:51 Physical Exam Vitals: Vital Signs Temp Pulse Pulse Resp BP BP Pulse Ox 01/01/20 08:00 96.8 F L 88 16 132/68 96 01/01/20 03:06 97.7 F 87 18 127/68 93 L 01/01/20 00:00 97.9 F 86 18 135/75 95 12/31/19 20:00 79 18 12/31/19 19:41 98.1 F 79 18 139/85 99 12/31/19 19:23 88 20 129/75 96 12/31/19 18:00 20 96 12/31/19 17:00 20 96 12/31/19 16:13 98 20 128/87 96 12/31/19 15:13 20 12/31/19 14:13 20 12/31/19 14:09 97.9 F 110 H 18 135/86 96 Intake and Output 12/31/19 01/01/20 01/01/20 22:59 06:59 14:59 Intake Total 0.9 240 Balance 0.9 240 Intake: Amount of Fluid Infused ( 0.9 ml) Oral 240 Other: Voiding Method Urinal Weight 90.718 kg 91.2 kg PHYSICAL EXAMINATION: Patient is lying in the bed comfortably, no acute distress, awake alert and oriented.. HEENT: Normocephalic. Neck is supple. Pupils reactive. Nostrils clear. Oral cavity is moist. Ears reveal no drainage. Neck reveals no JVD, carotid bruits, or thyromegaly. CHEST EXAMINATION: Trachea is central. Symmetrical expansion.Bibasilar diminished air entry. Lung ribera clear to auscultation and percussion. CARDIAC: Normal S1, S2 with no gallops. No murmurs ABDOMEN: Soft.Distended with ascites. Bowel sounds normal. organomegaly Cannot be assessed. . No abdominal bruits. Extremities: reveal no edema. No clubbing or cyanosis Neurologically awake, alert, oriented x3 with well-coordinated movements. No focal deficits noted Skin: No rash or skin lesions. Psychiatric: Coperative. Nonsuicidal Musculoskeletal: No joint swelling or deformity. Normal range of motion. Results CBC & Chem 7: 01/01/20 17:04 01/01/20 04:13 Labs: Abnormal Lab Results - Last 24 Hours (Table) 12/31/19 12/31/19 12/31/19 Range/Units 14:56 14:56 14:56 Hgb 12.5 L (13.0-17.5) gm/dL Hct 37.9 L (39.0-53.0) % Plt Count 47 L (150-450) k/uL Lymphocytes # 0.8 L (1.0-4.8) k/uL PT 15.7 H (9.0-12.0) sec INR 1.6 H (<1.2) APTT 30.1 H (22.0-30.0) sec Sodium 129 L (137-145) mmol/L Potassium 3.0 L (3.5-5.1) mmol/L Chloride 90 L (98-107) mmol/L BUN 21 H (9-20) mg/dL Glucose 251 H (74-99) mg/dL POC Glucose (mg/dL) (75-99) mg/dL Plasma Lactic Acid Tee (0.7-2.0) mmol/L Calcium 7.8 L (8.4-10.2) mg/dL Total Bilirubin 3.0 H (0.2-1.3) mg/dL Alkaline Phosphatase 279 H (38-126) U/L Total Protein 5.7 L (6.3-8.2) g/dL Albumin 2.7 L (3.5-5.0) g/dL Ur Specific [place] (1.001-1.035) Urine Protein (Negative) Urine Blood (Negative) Urine Bilirubin (Negative) Urine Bacteria (None) /hpf Hyaline Casts (0-2) /lpf Urine Mucus (None) /hpf 12/31/19 12/31/19 12/31/19 Range/Units 14:56 17:13 18:45 Hgb (13.0-17.5) gm/dL Hct (39.0-53.0) % Plt Count (150-450) k/uL Lymphocytes # (1.0-4.8) k/uL PT (9.0-12.0) sec INR (<1.2) APTT (22.0-30.0) sec Sodium (137-145) mmol/L Potassium (3.5-5.1) mmol/L Chloride (98-107) mmol/L BUN (9-20) mg/dL Glucose (74-99) mg/dL POC Glucose (mg/dL) (75-99) mg/dL Plasma Lactic Acid Tee 4.4 H* 7.8 H* (0.7-2.0) mmol/L Calcium (8.4-10.2) mg/dL Total Bilirubin (0.2-1.3) mg/dL Alkaline Phosphatase (38-126) U/L Total Protein (6.3-8.2) g/dL Albumin (3.5-5.0) g/dL Ur Specific [place] >1.050 H (1.001-1.035) Urine Protein 1+ H (Negative) Urine Blood Trace H (Negative) Urine Bilirubin 1+ H (Negative) Urine Bacteria Rare H (None) /hpf Hyaline Casts 58 H (0-2) /lpf Urine Mucus Occasional H (None) /hpf 12/31/19 01/01/20 01/01/20 Range/Units 21:36 00:31 04:13 Hgb (13.0-17.5) gm/dL Hct (39.0-53.0) % Plt Count (150-450) k/uL Lymphocytes # (1.0-4.8) k/uL PT (9.0-12.0) sec INR (<1.2) APTT (22.0-30.0) sec Sodium 127 L (137-145) mmol/L Potassium 3.3 L (3.5-5.1) mmol/L Chloride 91 L (98-107) mmol/L BUN 23 H (9-20) mg/dL Glucose 179 H (74-99) mg/dL POC Glucose (mg/dL) (75-99) mg/dL Plasma Lactic Acid Tee 6.0 H* 4.6 H* (0.7-2.0) mmol/L Calcium 7.6 L (8.4-10.2) mg/dL Total Bilirubin 2.6 H (0.2-1.3) mg/dL Alkaline Phosphatase 250 H (38-126) U/L Total Protein 5.6 L (6.3-8.2) g/dL Albumin 2.7 L (3.5-5.0) g/dL Ur Specific [place] (1.001-1.035) Urine Protein (Negative) Urine Blood (Negative) Urine Bilirubin (Negative) Urine Bacteria (None) /hpf Hyaline Casts (0-2) /lpf Urine Mucus (None) /hpf 01/01/20 01/01/20 01/01/20 Range/Units 04:13 06:04 07:03 Hgb (13.0-17.5) gm/dL Hct (39.0-53.0) % Plt Count (150-450) k/uL Lymphocytes # (1.0-4.8) k/uL PT (9.0-12.0) sec INR (<1.2) APTT (22.0-30.0) sec Sodium (137-145) mmol/L Potassium (3.5-5.1) mmol/L Chloride (98-107) mmol/L BUN (9-20) mg/dL Glucose (74-99) mg/dL POC Glucose (mg/dL) 183 H (75-99) mg/dL Plasma Lactic Acid Tee 3.4 H* 2.5 H* (0.7-2.0) mmol/L Calcium (8.4-10.2) mg/dL Total Bilirubin (0.2-1.3) mg/dL Alkaline Phosphatase (38-126) U/L Total Protein (6.3-8.2) g/dL Albumin (3.5-5.0) g/dL Ur Specific [place] (1.001-1.035) Urine Protein (Negative) Urine Blood (Negative) Urine Bilirubin (Negative) Urine Bacteria (None) /hpf Hyaline Casts (0-2) /lpf Urine Mucus (None) /hpf Thrombosis Risk Factor Assmnt - DVT/VTE Prophylaxis DVT/VTE Prophylaxis: Mechanical Prophylaxis ordered - Choose All That Apply Each Factor Represents 1 point: Heart failure (<1month), Swollen legs (current) Other Risk Factors: Yes Each Risk Factor Represents 3 Points: Age 75 years or older Other congenital or acquired thrombophilia - If yes, enter type in comment: No Thrombosis Risk Factor Assessment Total Risk Factor Score: 5 Thrombosis Risk Factor Assessment Level: High Risk Assessment and Plan Assessment: Worsening shortness of breath secondary to pleural effusion, ascites likely due to underlying liver disease. Hepatosplenomegaly with fatty infiltration of the liver. Small to moderate pelvic ascites Large cystic lesion lower pole of the right kidney Nonspecific lytic metastatic lesions on the CT History of prostate cancer diagnosed in 2007 Hyponatremia likely hypovolemic Thrombocytopenia secondary to liver disease. Hypertension Hyperlipidemia Diabetes type 2 insulin-dependent History of thyroid cancer status post surgical resection and currently on thyroid replacement. Coagulopathy secondary to liver disease HX of smoking. Plan: Patient will be continued gently IV hydration and replace electrolytes. Continue with insulin dosing and sliding scale. GI prophylaxis. Gastroenterology service was consulted due to hepatocellular disease. Urology was consulted due to right lower pole cystic mass for which outpatient work-up was indicated. Monitor electrolytes and follow-up closely. Prognosis guarded. Discussed with his family at bedside in detail. Pulmonary is considering diagnostic thoracentesis. TTE was ordered. Time with Patient: Greater than 30
[2020-01-02 06:07] LABS: Glucose,Whole Blood 156 mg/dL (75-99)
[2020-01-02 06:13] LABS: Basophils % (A) 1 %; Eosinophils # (A) 0.1 k/uL (0-0.7); Eosinophils % (A) 1 %; HCT 35.3 % (39.0-53.0); HGB 11.3 gm/dL (13.0-17.5); Hypochromasia Slight; Lymphocytes # (A) 0.9 k/uL (1.0-4.8); Lymphocytes % (A) 18 %; MCH 27.7 pg (25.0-35.0); MCHC 31.9 g/dL (31.0-37.0); MCV 86.6 fL (80.0-100.0); Mean Platelet Volume 11.7; Monocytes # (A) 0.4 k/uL (0-1.0); Monocytes % (A) 8 %; Neutrophils # (A) 3.6 k/uL (1.3-7.7); Neutrophils % (A) 70 %; RBC 4.08 m/uL (4.30-5.90); RDW 14.8 % (11.5-15.5); WBC 5.1 k/uL (3.8-10.6)
[2020-01-02] MEDS: LEVOTHYROXINE 50 MCG TAB PO SCH (06:22)
[2020-01-02] MEDS: INSULIN DETEMIR (LEVEMIR) 100 UNIT/ML SYR SQ SCH (06:24)
[2020-01-02] MEDS: INSULIN ASPART (NovoLOG) 100 UNIT/ML VIAL SQ SCH ×4 (06:24→20:45)
[2020-01-02 06:35] LABS: ALT 18 U/L (4-49); AST 56 U/L (17-59); African American GFR (CKD) >90 (>60 ml/min/1.73 sqM); Albumin 2.3 g/dL (3.5-5.0); Alkaline Phosphatase 260 U/L (38-126); Anion Gap 7 mmol/L; Blood Urea Nitrogen 25 mg/dL (9-20); Calcium 7.2 mg/dL (8.4-10.2); Carbon Dioxide 30 mmol/L (22-30); Chloride 94 mmol/L (98-107); Glucose 139 mg/dL (74-99); Non-African American GFR(CKD) 82 (>60 ml/min/1.73 sqM); Sodium 131 mmol/L (137-145); Total Bilirubin 2.5 mg/dL (0.2-1.3)
[2020-01-02 06:37] LABS: Platelet Count 39 k/uL (150-450)
--- NOTE | 2020-01-02 07:04 | P.CONS ---
History of Present Illness - Reason for Consult Consult date: 01/01/20 Ascites, liver disease Requesting physician: Yanet Callaway - Chief Complaint Shortness of breath, fatigue, fluid overload - History of Present Illness 79-year-old male with a medical history significant for hypertension, hyperlipidemia, diabetes mellitus, hypothyroidism, prostate cancer diagnosed in 2018 and congestive heart failure who presented to the emergency department with complaints of fatigue and worsening shortness of breath. The patient reported symptoms worsening over the past 2 weeks. Recently started on Lasix therapy 3 to 4 days prior to admission by the cardiology service. He reported shortness of breath at baseline and worse with exertion with associated increasing abdominal distention and swelling and lower extremity swelling. He denies any history of liver disease or cirrhosis in the past. No prior endoscopic evaluation. He does report a longstanding history of daily alcohol consumption for over [address] scan which was performed in evaluation was negative for any acute intra-abdominal process but did show hepatosplenomegaly with fatty infiltration of the liver, as well as a large exophytic cystic lesion of the rig ht kidney and ascites. Laboratory evaluation significant for WBC 5.1, hemoglobin 12.5, platelet count 47,000, alkaline phosphatase 250, AST 58, ALT 17, total bilirubin 2.6, INR 1.6 with an ammonia of 43. Review of Systems Constitutional: Does report fatigue and weight gain Eyes: Denies any change in vision, pain denies Nose: Denies any congestion, rhinorrhea Ears: Denies any change in hearing, new onset tinnitus Lungs: Denies any wheezing, cough, or hemoptysis but he does report shortness of breath Cardiac: Denies any pain in chest, shortness of breath, lower extremity swelling Abdomen: As per history of present illness Skin: Denies any new rashes or pruritus Genitourinary: Denies any dysuria or hematuria, exophytic kidney mass on CT Neuro: Denies any change in mental status, new focal deficits Past Medical History Past Medical History: Heart Failure, Diabetes Mellitus, Hyperlipidemia, Hypertension History of Any Multi-Drug Resistant Organisms: None Reported Past Surgical History: Orthopedic Surgery Additional Past Surgical History / Comment(s): Thyroid removal and arthroscopy left knee Past Psychological History: No Psychological Hx Reported Smoking Status: Former smoker (Quit smoking 40 years ago), Never smoker Past Alcohol Use History: Occasional Past Drug Use History: None Reported Additional History: Family History: Reviewed with the patient and non contributory to current medical presentation. Medications and Allergies Home Medications Medication Instructions Recorded Confirmed Type Atorvastatin Calcium [Lipitor] 40 mg PO HS 12/31/19 12/31/19 History Ergocalciferol (Vitamin D2) 50,000 unit PO SAN 12/31/19 12/31/19 History [Drisdol] Furosemide [Lasix] 20 mg PO DAILY 12/31/19 12/31/19 History Furosemide [Lasix] 40 mg PO DAILY 12/31/19 12/31/19 History Insulin Glargine,Hum.rec.anlog 10 unit SQ DAILY 12/31/19 12/31/19 History [Lantus Solostar] Levocetirizine Dihydrochloride 5 mg PO HS PRN 12/31/19 12/31/19 History [Xyzal] Levothyroxine Sodium [Synthroid] 175 mcg PO MOTUWETHFRSA 12/31/19 12/31/19 Histo ry Metolazone [Zaroxolyn] 2.5 mg PO DAILY 12/31/19 12/31/19 History Metoprolol Succinate [Toprol XL] 25 mg PO DAILY 12/31/19 12/31/19 History Potassium Chloride ER [K-Dur 20] 20 meq PO DAILY 12/31/19 12/31/19 History metFORMIN HCL 1,000 mg PO DAILY 12/31/19 12/31/19 History Allergies Allergy/AdvReac Type Severity Reaction Status Date / Time Penicillins Allergy Swelling Verified 12/31/19 16:51 Physical Exam Vitals: Vital Signs Temp Pulse Pulse Resp BP BP Pulse Ox 01/01/20 12:00 83 16 115/72 98 01/01/20 11:44 16 01/01/20 08:00 96.8 F L 88 16 132/68 96 01/01/20 03:06 97.7 F 87 18 127/68 93 L 01/01/20 00:00 97.9 F 86 18 135/75 95 12/31/19 20:00 79 18 12/31/19 19:41 98.1 F 79 18 139/85 99 12/31/19 19:23 88 20 129/75 96 12/31/19 18:00 20 96 12/31/19 17:00 20 96 12/31/19 16:13 98 20 128/87 96 12/31/19 15:13 20 Intake and Output 12/31/19 01/01/20 01/01/20 22:59 06:59 14:59 Intake Total 0.9 840 Balance 0.9 840 Intake: Amount of Fluid Infused ( 0.9 ml) Oral 840 Other: Voiding Method Urinal Urinal Weight 90.718 kg 91.2 kg 91.2 kg Constitutional: Lying in bed in no apparent distress Head: normocephalic/atraumatic Eyes: No icterus, no injection Mouth: Moist mucous membranes Nose: No discharge noted Neck: Trachea midline Cardiac: S1S2 appreciated Lungs: Normal air entry in all lung ribera, no wheezing appreciated Abdomen: Soft, nontender, nondistended, normal bowel sounds. No guarding or rigidity Skin: No rashes, no jaundice Neuro: Awake alert and oriented 3, no asterixis, no focal deficits Results CBC & Chem 7: 01/02/20 05:31 01/02/20 05:31 Labs: Abnormal Lab Results - Last 24 Hours (Table) 12/31/19 12/31/19 12/31/19 Range/Units 14:56 14:56 14:56 Hgb 12.5 L (13.0-17.5) gm/dL Hct 37.9 L (39.0-53.0) % Plt Count 47 L (150-450) k/uL Lymphocytes # 0.8 L (1.0-4.8) k/uL PT 15.7 H (9.0-12.0) sec INR 1.6 H (<1.2) APTT 30.1 H (22.0-30.0) sec Sodium 129 L (137-145) mmol/L Potassium 3.0 L (3.5-5.1) mmol/L Chloride 90 L (98-107) mmol/L BUN 21 H (9-20) mg/dL Glucose 251 H (74-99) mg/dL POC Glucose (mg/dL) (75-99) mg/dL Hemoglobin A1c (4.0-6.0) % Plasma Lactic Acid Tee (0.7-2.0) mmol/L Calcium 7.8 L (8.4-10.2) mg/dL Total Bilirubin 3.0 H (0.2-1.3) mg/dL Alkaline Phosphatase 279 H (38-126) U/L Ammonia (<30) umol/L Total Protein 5.7 L (6.3-8.2) g/dL Albumin 2.7 L (3.5-5.0) g/dL Ur Specific [place] (1.001-1.035) Urine Protein (Negative) Urine Blood (Negative) Urine Bilirubin (Negative) Urine Bacteria (None) /hpf Hyaline Casts (0-2) /lpf Urine Mucus (None) /hpf 12/31/19 12/31/19 12/31/19 Range/Units 14:56 17:13 18:45 Hgb (13.0-17.5) gm/dL Hct (39.0-53.0) % Plt Count (150-450) k/uL Lymphocytes # (1.0-4.8) k/uL PT (9.0-12.0) sec INR (<1.2) APTT (22.0-30.0) sec Sodium (137-145) mmol/L Potassium (3.5-5.1) mmol/L Chloride (98-107) mmol/L BUN (9-20) mg/dL Glucose (74-99) mg/dL POC Glucose (mg/dL) (75-99) mg/dL Hemoglobin A1c (4.0-6.0) % Plasma Lactic Acid Tee 4.4 H* 7.8 H* (0.7-2.0) mmol/L Calcium (8.4-10.2) mg/dL Total Bilirubin (0.2-1.3) mg/dL Alkaline Phosphatase (38-126) U/L Ammonia (<30) umol/L Total Protein (6.3-8.2) g/dL Albumin (3.5-5.0) g/dL Ur Specific [place] >1.050 H (1.001-1.035) Urine Protein 1+ H (Negative) Urine Blood Trace H (Negative) Urine Bilirubin 1+ H (Negative) Urine Bacteria Rare H (None) /hpf Hyaline Casts 58 H (0-2) /lpf Urine Mucus Occasional H (None) /hpf 12/31/19 01/01/20 01/01/20 Range/Units 21:36 00:31 04:13 Hgb (13.0-17.5) gm/dL Hct (39.0-53.0) % Plt Count (150-450) k/uL Lymphocytes # (1.0-4.8) k/uL PT (9.0-12.0) sec INR (<1.2) APTT (22.0-30.0) sec Sodium 127 L (137-145) mmol/L Potassium 3.3 L (3.5-5.1) mmol/L Chloride 91 L (98-107) mmol/L BUN 23 H (9-20) mg/dL Glucose 179 H (74-99) mg/dL POC Glucose (mg/dL) (75-99) mg/dL Hemoglobin A1c (4.0-6.0) % Plasma Lactic Acid Tee 6.0 H* 4.6 H* (0.7-2.0) mmol/L Calcium 7.6 L (8.4-10.2) mg/dL Total Bilirubin 2.6 H (0.2-1.3) mg/dL Alkaline Phosphatase 250 H (38-126) U/L Ammonia (<30) umol/L Total Protein 5.6 L (6.3-8.2) g/dL Albumin 2.7 L (3.5-5.0) g/dL Ur Specific [place] (1.001-1.035) Urine Protein (Negative) Urine Blood (Negative) Urine Bilirubin (Negative) Urine Bacteria (None) /hpf Hyaline Casts (0-2) /lpf Urine Mucus (None) /hpf 01/01/20 01/01/20 01/01/20 Range/Units 04:13 04:13 06:04 Hgb (13.0-17.5) gm/dL Hct (39.0-53.0) % Plt Count (150-450) k/uL Lymphocytes # (1.0-4.8) k/uL PT (9.0-12.0) sec INR (<1.2) APTT (22.0-30.0) sec Sodium (137-145) mmol/L Potassium (3.5-5.1) mmol/L Chloride (98-107) mmol/L BUN (9-20) mg/dL Glucose (74-99) mg/dL POC Glucose (mg/dL) 183 H (75-99) mg/dL Hemoglobin A1c 9.2 H (4.0-6.0) % Plasma Lactic Acid Tee 3.4 H* (0.7-2.0) mmol/L Calcium (8.4-10.2) mg/dL Total Bilirubin (0.2-1.3) mg/dL Alkaline Phosphatase (38-126) U/L Ammonia (<30) umol/L Total Protein (6.3-8.2) g/dL Albumin (3.5-5.0) g/dL Ur Specific [place] (1.001-1.035) Urine Protein (Negative) Urine Blood (Negative) Urine Bilirubin (Negative) Urine Bacteria (None) /hpf Hyaline Casts (0-2) /lpf Urine Mucus (None) /hpf 01/01/20 01/01/20 01/01/20 Range/Units 07:03 11:54 12:38 Hgb (13.0-17.5) gm/dL Hct (39.0-53.0) % Plt Count (150-450) k/uL Lymphocytes # (1.0-4.8) k/uL PT (9.0-12.0) sec INR (<1.2) APTT (22.0-30.0) sec Sodium (137-145) mmol/L Potassium (3.5-5.1) mmol/L Chloride (98-107) mmol/L BUN (9-20) mg/dL Glucose (74-99) mg/dL POC Glucose (mg/dL) 179 H (75-99) mg/dL Hemoglobin A1c (4.0-6.0) % Plasma Lactic Acid Tee 2.5 H* (0.7-2.0) mmol/L Calcium (8.4-10.2) mg/dL Total Bilirubin (0.2-1.3) mg/dL Alkaline Phosphatase (38-126) U/L Ammonia 43 H (<30) umol/L Total Protein (6.3-8.2) g/dL Albumin (3.5-5.0) g/dL Ur Specific [place] (1.001-1.035) Urine Protein (Negative) Urine Blood (Negative) Urine Bilirubin (Negative) Urine Bacteria (None) /hpf Hyaline Casts (0-2) /lpf Urine Mucus (None) /hpf CT scan - abdomen: report reviewed ( CT scan which was performed in evaluation was negative for any acute intra-abdominal process but did show hepatosplenomegaly with fatty infiltration of the liver, as well as a large exophytic cystic lesion of the right kidney and ascites. ) Assessment and Plan (1) Elevated liver enzymes Narrative/Plan: 79-year-old male with multiple medical comorbidities presented to the hospital for fatigue, shortness of breath, and fluid overload. Patient has no history of underlying liver disease or cirrhosis per his knowledge, but he does have a significant history of alcohol use in the past. On presentation found to have lower extremity and abdominal fluid overload with a ascites noted on CT scan. Recently started on Lasix in the outpatient setting by his cross country/track and field coach patient's laboratory evaluation including a depressed platelet count of 47,000, elevated liver enzymes with total bilirubin 2.6, alkaline phosphatase 250, AST 58 and ALT 17 with an elevated INR of 1.6 are concerning for underlying cirrhotic liver. Ammonia also elevated at 43 but no evidence of encephalopathy clinically. CT scan which was performed in evaluation was negative for any acute intra-abdominal process but did show hepatosplenomegaly with fatty infiltration of the liver, as well as a large exophytic cystic lesion of the right kidney and ascites. Current Visit: Yes Status: Acute Code(s): R74.8 - ABNORMAL LEVELS OF OTHER SERUM ENZYMES SNOMED Code(s): 738610934 (2) Ascites Current Visit: Yes Status: Acute Code(s): R18.8 - OTHER ASCITES SNOMED Code(s): 903577234 (3) Right kidney mass Current Visit: Yes Status: Acute Code(s): N28.89 - OTHER SPECIFIED DISORDERS OF KIDNEY AND URETER SNOMED Code(s): 532018219 Plan: Supportive care Okay for diet as tolerated Patient should maintain a 2000 mg sodium restricted diet, dietitian consult has been placed for further instruction Continue Lasix therapy Aldactone added Continue to monitor CBC, BMP, LFTs Paracentesis ordered Thank you for allowing us to participate in the care of the patient we will continue to follow
[2020-01-02] MEDS ORDERED: Potassium Replacement Protocol 1 EACH MISC MISCELLANE PRN (07:33)
[2020-01-02] MEDS: METOPROLOL SUCCINATE (ER) 25 MG TAB.ER.24H PO SCH (08:04)
[2020-01-02] MEDS: FAMOTIDINE 20 MG TAB PO SCH ×2 (08:05→20:45)
[2020-01-02] MEDS: SPIRONOLACTONE 25 MG TAB PO SCH (08:05)
[2020-01-02] MEDS: POTASSIUM CHLORIDE ER 20 MEQ TAB.ER PO SCH (08:05)
--- NOTE | 2020-01-02 09:06 | US ---
EXAMINATION TYPE: US liver DATE OF EXAM: 01/02/2020 COMPARISON: NONE CLINICAL HISTORY: liver failure. EXAM MEASUREMENTS: Liver Length: 23.3 cm Gallbladder Wall: 0.7 cm CBD: not seen Right Kidney: 12.0 x 4.0 x 4.8 cm Pancreas: Obscured by bowel gas Liver: grossly heterogeneous, enlarged, vessels difficult to visualize Gallbladder: thickened wall echogenic foci within Evidence for sonographic Garibay's sign: CBD: unable to visualize Right Kidney: 11.9 x 11.3 x 12.4cm cyst Mild ascites, all 4 quadrants scanned. IMPRESSION: Findings consistent with hepatocellular disease, possible hepatic steatosis, hepatomegaly . Findings could possibly represent chronic cholecystitis, possible cholesterolosis. Limited exam.
--- NOTE | 2020-01-02 09:49 | CDI ---
Documentation Clarification Form Date: 01/02/2020 09:31:25 AM From: Coleen Cai RN, CCDS Admit Date: 12/31/2019 06:59:00 PM Patient Name: Clint Barcenas Visit Number: [id number] ATTENTION: The Clinical Documentation Specialists (CDI) and [facility] Coding Staff appreciate your assistance in clarifying documentation. Please respond to the clarification below the line at the bottom and electronically sign. The CDI & [facility] Coding staff will review the response and follow-up if needed. Please note: Queries are made part of the Legal Health Record. If you have any questions, please contact the author of this message via ITS. Dr. Callaway CHF is documented in the H&P and Consults and requires further specificity. History/Risk Factors: CHF, DM, Hyperlipidemia, HTN Clinical Indicators: H&P & Consults: CHF 12/31/2019 1409 Admission VS/Pulse OX: Temp 97.9, HR 110, RR 18, B/P 135/86, spo2 96% ra BNP: 380 12/27/19 Echocardiogram Results: EF 55-60%, RV mildly enlarged 12/30 Chest X Ray: Question small effusions and associated atelectasis, correlate to \exclude pneumonia. 12/31 H&P: Patient was recently seen by his curriculum writer and was started on Lasix 3 to 4 days ago. His leg swelling did improve with Lasix. Patient states that he has been increasingly short of breath even with minimal activity and occasional sharp pains in the chest. Patient was also having dizziness with standing. Treatment Aldactone 50 mg PO QD In your professional opinion, can you please clarify the acuity and type of CHF if known? Chronic Diastolic Heart Failure: Chronic Systolic & Diastolic Heart Failure: Unable to Determine Other, please specify (Last Revision: September 2017) Chronic CHF with diastolic dysfunction. MTDD
[2020-01-02 11:52] LABS: Ceruloplasmin 35.6 mg/dL (20.0-60.0)
[2020-01-02 12:26] LABS: Glucose,Whole Blood 147 mg/dL (75-99)
--- NOTE | 2020-01-02 12:52 | P.PN ---
Subjective Progress Note Date: 01/02/20 Principal diagnosis: Lower extremity swelling, abdominal wall edema, ascites 79-year-old white male patient with past medical history of essential hypertension, type 2 diabetes mellitus, hypothyroidism, hyperlipidemia, previous history of prostate cancer, former smoker, thyroid cancer status post thyroidectomy and patient is now on thyroid replacement medications. Patient fo llows with Dr. Sarabia for primary care services. Patient follows with Dr. Janes Medina, and patient recently has been having increased issues with swelling of the lower extremities, increased abdominal fullness, and abdominal wall swelling, increased shortness of breath, and occasional dry nonproductive cough. And he was placed on Lasix without much improvement. He was recently placed on Zaroxolyn for persistent leg swelling and exertional dyspnea. His outpatient chest x-ray showed small bilateral pleural effusions. A recent, 12/18/2019 1 over his PCR was negative. On 12/31/2019 patient presented today emergency department with multiple complaints, including feeling rundown, fatigued, s hortness of breath and weakness, patient complains of a lack of appetite, complains of nausea, dizziness. Patient states that whenever he ambulates with does any physical activity he is very short of breath, is having occasional sharp stabbing chest pains. No syncopal episodes, no fever or chills. No constipation or diarrhea, no plans of bloating in the abdomen. Chest x-ray shows blunting of the costophrenic angles, consistent with small pleural effusions and associated atelectasis. Labs revealed white blood cell, 5.1, hemoglobin is 12.5, INR is 1.6, serum sodium is 129, potassium 3.0, chloride is 90, CO2 is 27, BUN is 21, creatinine 0.83, patient's lactic acid was elevated at 6.0, serum calcium was 7.8, magnesium 1.9, total bilirubin was elevated at 3.0, AST and ALT were within normal limits. Alkaline phosphatase was elevated at 279, troponin was negative at 0.02, proBNP was 380. Albumin was 2.7. Urinalysis showed 1+ protein, trace blood, 1+ bilirubin, no significant white blood cell count, negative leuks, rare bacteria., No clear evidence of urinary tract infection. Afebrile, room air pulse ox 98%. Hemodynamically patient is stable, recent echocardiogram showed mild concentric LVH, EF is preserved at 55- 60%, mild enlargement of the right ventricle, no aortic stenosis or regurgitation, normal mitral valve, mild tricuspid regurg no evidence of pulmonary hypertension with right-sided pressures of 30.3 mmHg. No pericardial effusion. Patient denies heavy alcohol intake, his daughter relays that she may have a few drinks in a week, not a heavy drinker. CT of the abdomen and pelvis showed hepatosplenomegaly with possible fatty infiltration of the liver and underlying hepatic cellular disease, could not exclude infiltrative process or disease in the spleen versus diminished perfusion. There was small to moderate amount of pelvic ascites, and small amount of diffuse soft tissue anasarca. There was a large exophytic cystic lesion at the lower pole of the right kidney and a surgical evaluation was recommended. And there was subtle nonspecific lytic lesions, with consideration of metastatic disease. On today's evaluation patient is sitting up in bed, appears to be in no acute distress, still has significant swelling in the lower extremities, 1-2+, and abdominal wall, he is on room air, does become dyspneic with exertion, but appears to be comfortable at rest, blood pressure 115/72, patient is afebrile, his incentive mechanism on the monitor with a controlled rate, denies any chest pain, only occasional cough, his diuretics are on hold, patient is receiving gentle hydration with 0.9 normal saline at a rate of 50 ML per hour. Today's sodium is 127. No seizures, no neurologic deficits, patient is providing detailed medical history. On 01/02/2020 patient seen in follow-up on selective care unit. He is sitting comfortably in bed, today's is on room air with pulse ox of 98%, hemodynamically patient is stable, afebrile, abdomen is still distended, but nontender, and is soft. Today's labs have been reviewed, showing normal white count of 5.1, hemoglobin is 11.4, platelet count has further decreased, down to 39 on today's labs, sodium is 131, potassium 3.0, chloride is 94, CO2 30, B1 is 25 and creatinine 0.90, calcium is 7.2, total bilirubin is 2.5 daily improved, AST and OT were within normal limits, alkaline phosphatase is 260, LDH was 495, ceruloplasmin was 35.6, cortisol level was 19. Abdominal ultrasound was completed showing grossly heterogeneous enlarged liver, thickened gallbladder wall with echogenic foci within, common bile duct was unable to visualize, findings could possibly represent chronic cholecystitis, possible cholesterolosis. TERRANCE was negative, antimitochondrial antibody was 3.1, chronic hepatitis panel was negative, ammonia level was 43, ferritin was normal at 105.6, iron was 18. 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 GI evaluation was requested, please refer to their consultation note. There is no evidence of encephalopathy. The findings of the workup are most likely consistent with chronic liver disease, and patient may need evaluation by a liver specialist at [facility] for possible liver biopsy. She has gone for a bone scan, and MRI of the liver with and without contrast today. Denies any shortness of breath on today's exam. Lung sounds are clear diminished at the bases, no cough or congestion, his diuretics have been placed on hold, and patient has been started on Aldactone. Objective - Vital Signs Vital signs: Vital Signs Temp 97.0 F L 01/01/20 23:51 Pulse 80 01/02/20 12:00 Resp 16 01/02/20 12:00 BP 114/73 01/02/20 12:00 Pulse Ox 98 01/02/20 12:00 Intake & Output 01/01/20 01/02/20 01/02/20 18:59 06:59 18:59 Intake Total 840 400 0 Balance 840 400 0 Weight 91.2 kg 92.3 kg Intake: Intake, IV Titration 400 Amount Sodium Chloride 0.9% 500 400 ml 500 ml @ 50 mls/hr IV .Q10H ON LICENSE OF [facility] Rx#:[id number] Oral 840 0 Other: Voiding Method Urinal Toilet Toilet # Voids 3 2 # Bowel Movements 1 - Exam GENERAL EXAM: Alert, very pleasant, 79-year-old, sitting up on the bed, currently on room air, his pulse ox is 90% on room air, comfortable in no a pparent distress. HEAD: Normocephalic/atraumatic. EYES: Normal reaction of pupils, equal size. Conjunctiva pink, sclera white. NOSE: Clear with pink turbinates. THROAT: No erythema or exudates. NECK: No masses, no JVD, no thyroid enlargement, no adenopathy. CHEST: No chest wall deformity. Symmetrical expansion. LUNGS: Equal air entry with no crackles, wheeze, rhonchi or dullness. CVS: Regular rate and rhythm, normal S1 and S2, no gallops, no murmurs, no rubs ABDOMEN: Soft, nontender, obese, and some distention and abdominal wall swelling. normal bowel sounds, no guarding or rigidity. EXTREMITIES: No clubbing, 1+ to 2+ lower extremity edema, no cyanosis, 2+ pulses and upper and lower extremities. MUSCULOSKELETAL: Muscle strength and tone normal. SPINE: No scoliosis or deformity SKIN: No rashes CENTRAL NERVOUS SYSTEM: Alert and oriented -3. No focal deficits, tone is normal in all 4 extremities. PSYCHIATRIC: Alert and oriented -3. Appropriate affect. Intact judgment and insight. - Labs CBC & Chem 7: 01/02/20 05:31 01/02/20 05:31 Labs: Abnormal Lab Results - Last 24 Hours (Table) 01/01/20 01/01/20 01/01/20 Range/Units 04:13 10:29 12:38 RBC (4.30-5.90) m/uL Hgb (13.0-17.5) gm/dL Hct (39.0-53.0) % Plt Count (150-450) k/uL Lymphocytes # (1.0-4.8) k/uL Retic Count (0.5-2.0) % PT (9.0-12.0) sec INR (<1.2) APTT (22.0-30.0) sec Sodium (137-145) mmol/L Potassium (3.5-5.1) mmol/L Chloride (98-107) mmol/L BUN (9-20) mg/dL Glucose (74-99) mg/dL POC Glucose (mg/dL) (75-99) mg/dL Hemoglobin A1c 9.2 H (4.0-6.0) % Calcium (8.4-10.2) mg/dL Iron 18 L (65-175) ug/dL Total Bilirubin (0.2-1.3) mg/dL Alkaline Phosphatase (38-126) U/L Ammonia 43 H (<30) umol/L Total Protein (6.3-8.2) g/dL Albumin (3.5-5.0) g/dL 01/01/20 01/01/20 01/01/20 Range/Units 17:00 17:04 17:04 RBC 4.04 L (4.30-5.90) m/uL Hgb 11.6 L (13.0-17.5) gm/dL Hct 36.0 L (39.0-53.0) % Plt Count 46 L (150-450) k/uL Lymphocytes # 0.7 L (1.0-4.8) k/uL Retic Count 4.9 H (0.5-2.0) % PT 16.6 H (9.0-12.0) sec INR 1.7 H (<1.2) APTT 31.6 H (22.0-30.0) sec Sodium (137-145) mmol/L Potassium (3.5-5.1) mmol/L Chloride (98-107) mmol/L BUN (9-20) mg/dL Glucose (74-99) mg/dL POC Glucose (mg/dL) 217 H (75-99) mg/dL Hemoglobin A1c (4.0-6.0) % Calcium (8.4-10.2) mg/dL Iron (65-175) ug/dL Total Bilirubin (0.2-1.3) mg/dL Alkaline Phosphatase (38-126) U/L Ammonia (<30) umol/L Total Protein (6.3-8.2) g/dL Albumin (3.5-5.0) g/dL 01/01/20 01/02/20 01/02/20 Range/Units 21:33 05:31 05:31 RBC 4.08 L (4.30-5.90) m/uL Hgb 11.3 L (13.0-17.5) gm/dL Hct 35.3 L (39.0-53.0) % Plt Count 39 L (150-450) k/uL Lymphocytes # 0.9 L (1.0-4.8) k/uL Retic Count (0.5-2.0) % PT (9.0-12.0) sec INR (<1.2) APTT (22.0-30.0) sec Sodium 131 L (137-145) mmol/L Potassium 3.0 L (3.5-5.1) mmol/L Chloride 94 L (98-107) mmol/L BUN 25 H (9-20) mg/dL Glucose 139 H (74-99) mg/dL POC Glucose (mg/dL) 172 H (75-99) mg/dL Hemoglobin A1c (4.0-6.0) % Calcium 7.2 L (8.4-10.2) mg/dL Iron (65-175) ug/dL Total Bilirubin 2.5 H (0.2-1.3) mg/dL Alkaline Phosphatase 260 H (38-126) U/L Ammonia (<30) umol/L Total Protein 5.0 L (6.3-8.2) g/dL Albumin 2.3 L (3.5-5.0) g/dL 01/02/20 01/02/20 Range/Units 05:47 12:25 RBC (4.30-5.90) m/uL Hgb (13.0-17.5) gm/dL Hct (39.0-53.0) % Plt Count (150-450) k/uL Lymphocytes # (1.0-4.8) k/uL Retic Count (0.5-2.0) % PT (9.0-12.0) sec INR (<1.2) APTT (22.0-30.0) sec Sodium (137-145) mmol/L Potassium (3.5-5.1) mmol/L Chloride (98-107) mmol/L BUN (9-20) mg/dL Glucose (74-99) mg/dL POC Glucose (mg/dL) 156 H 147 H (75-99) mg/dL Hemoglobin A1c (4.0-6.0) % Calcium (8.4-10.2) mg/dL Iron (65-175) ug/dL Total Bilirubin (0.2-1.3) mg/dL Alkaline Phosphatase (38-126) U/L Ammonia (<30) umol/L Total Protein (6.3-8.2) g/dL Albumin (3.5-5.0) g/dL Assessment and Plan Plan: Assessment: #1. Dyspnea related to significant peripheral fluid retention, abdominal dist ention, and small pleural effusions, likely related to underlying chronic liver disease. Did not improve with diuretic therapy #2. Suspect underlying chronic liver disease, CT of abdomen and pelvis showed hepatosplenomegaly with possible fatty infiltration of the liver or underlying hepaticellular disease. He presented with increased INR, increased peripheral fluid retention not improved with diuretic therapy, thrombocytopenia, and increased bilirubin and small amount of ascites #3. Large exophytic cystic lesion in the lower pole of the right kidney, urology swallowing #4. Subtle nonspecific lytic lesions, rule out metastatic disease, medical oncology consulted #5. Hyponatremia, likely related to diuretic therapy, diuretics are currently on hold, patient is receiving gentle IV hydration. #7. Small amount of ascites, hepatosplenomegaly #8. Hyperbilirubinemia #9. 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 Hyperlipidemia #11. 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 Type 2 diabetes mellitus #13. History of prostate cancer Plan: Denies shortness of breath at rest, he is on room air, patient is completing his workup for investigation of possibility of chronic liver disease. Vital signs are stable, patient is afebrile, GI service consultation was noted. Patient possibly may require evaluation by a liver specialist at [facility]. I performed a history & physical examination of the patient and discussed their management with my nurse practitioner, Nathalie Villar. I reviewed the nurse practitioner's note and agree with the documented findings and plan of care. Lung sounds are positive for diminished breath sounds at the bases. The findings and the impression was discussed with the patient. I attest to the documentation by the nurse practitioner. Time with Patient: Less than 30
[2020-01-02 13:03] LABS: Protein, Total 4.8 g/dL (6.2-8.2)
[2020-01-02 13:06] LABS: Hepatitis A Antibody IgM Non-Reactive (Non-Reactive); Hepatitis B Core IgM Non-Reactive (Non-Reactive); Hepatitis B Surface Antigen Non-Reactive (Non-Reactive); Hepatitis C IgG Antibody Non-Reactive (Non-Reactive)
--- NOTE | 2020-01-02 13:09 | NM ---
EXAMINATION TYPE: NM bone scan whole body DATE OF EXAM: 01/02/2020 COMPARISON: NONE HISTORY: Prostate cancer, thyroid cancer Delayed whole-body scanning was performed following the injection of 24.8 mCi Tc 99m MDP. Images acq uired 3 hours post injection. FINDINGS: Soft tissue uptake is normal. There is some mild increased uptake seen in the distal left femur which is indeterminate. Some mild uptake within the wrists, shoulders, knees is likely degenerative. Uptak e in the costovertebral angles is likely due to degenerative change. No abnormal uptake seen to corre late with the previously described lucent areas within the pelvis. IMPRESSION: Prostatic disease is not excluded. MRI of the pelvis or distal left femur may be of benefit.
[2020-01-02 13:19] LABS: % Iron Saturation 5.28 (15.00-50.00); Ferritin 77.9 ng/mL (22.0-322.0); Iron 16 ug/dL (65-175); Total Iron Binding Capacity 303 ug/dL (228-460)
--- NOTE | 2020-01-02 14:59 | P.PN ---
Subjective Progress Note Date: 01/02/20 Principal diagnosis: Renal mass and ascites patient seen and evaluated, sitting up in chair, NAD. Daughter in law at bedside. GI also present during evaluation Objective - Vital Signs Vital signs: Vital Signs Temp 97.0 F L 01/01/20 23:51 Pulse 80 01/02/20 12:00 Resp 16 01/02/20 12:00 BP 114/73 01/02/20 12:00 Pulse Ox 98 01/02/20 12:00 Intake & Output 01/01/20 01/02/20 01/02/20 18:59 06:59 18:59 Intake Total 840 400 0 Balance 840 400 0 Weight 91.2 kg 92.3 kg Intake: Intake, IV Titration 400 Amount Sodium Chloride 0.9% 500 400 ml 500 ml @ 50 mls/hr IV .Q10H [facility] Rx#:[id number] Oral 840 0 Other: Voiding Method Urinal Toilet Toilet # Voids 3 2 # Bowel Movements 1 - Exam - Constitutional General appearance: cooperative, mild distress - EENT Eyes: EOMI, PERRLA, dentition normal ENT: hard of hearing, NA/AT, normal oropharynx - Neck Neck: normal ROM - Respiratory Respiratory: bilateral: diminished (mild increased effort) - Cardiovascular Rhythm: irregularly irregular leg Peripheral Edema: bilateral: 1+ - Gastrointestinal Abdominal Ascites noted General gastrointestinal: distended, soft, tenderness - Neurologic Neurologic: CNII-XII intact - Musculoskeletal Musculoskeletal: generalized weakness, strength equal bilaterally - Psychiatric Psychiatric: A&O x's 3, appropriate affect, intact judgment & insight - Labs CBC & Chem 7: 01/02/20 05:31 01/02/20 05:31 Labs: Abnormal Lab Results - Last 24 Hours (Table) 01/01/20 01/01/20 01/01/20 Range/Units 04:13 10:29 17:00 RBC (4.30-5.90) m/uL Hgb (13.0-17.5) gm/dL Hct (39.0-53.0) % Plt Count (150-450) k/uL Lymphocytes # (1.0-4.8) k/uL Retic Count (0.5-2.0) % PT (9.0-12.0) sec INR (<1.2) APTT (22.0-30.0) sec Sodium (137-145) mmol/L Potassium (3.5-5.1) mmol/L Chloride (98-107) mmol/L BUN (9-20) mg/dL Glucose (74-99) mg/dL POC Glucose (mg/dL) 217 H (75-99) mg/dL Hemoglobin A1c 9.2 H (4.0-6.0) % Calcium (8.4-10.2) mg/dL Iron 18 L (65-175) ug/dL % Saturation (15.00-50.00) Total Bilirubin (0.2-1.3) mg/dL Alkaline Phosphatase (38-126) U/L Total Protein (6.3-8.2) g/dL Total Protein (PEP) (6.2-8.2) g/dL Albumin (3.5-5.0) g/dL 01/01/20 01/01/20 01/01/20 Range/Units 17:04 17:04 21:33 RBC 4.04 L (4.30-5.90) m/uL Hgb 11.6 L (13.0-17.5) gm/dL Hct 36.0 L (39.0-53.0) % Plt Count 46 L (150-450) k/uL Lymphocytes # 0.7 L (1.0-4.8) k/uL Retic Count 4.9 H (0.5-2.0) % PT 16.6 H (9.0-12.0) sec INR 1.7 H (<1.2) APTT 31.6 H (22.0-30.0) sec Sodium (137-145) mmol/L Potassium (3.5-5.1) mmol/L Chloride (98-107) mmol/L BUN (9-20) mg/dL Glucose (74-99) mg/dL POC Glucose (mg/dL) 172 H (75-99) mg/dL Hemoglobin A1c (4.0-6.0) % Calcium (8.4-10.2) mg/dL Iron (65-175) ug/dL % Saturation (15.00-50.00) Total Bilirubin (0.2-1.3) mg/dL Alkaline Phosphatase (38-126) U/L Total Protein (6.3-8.2) g/dL Total Protein (PEP) (6.2-8.2) g/dL Albumin (3.5-5.0) g/dL 01/02/20 01/02/20 01/02/20 Range/Units 05:31 05:31 05:31 RBC 4.08 L (4.30-5.90) m/uL Hgb 11.3 L (13.0-17.5) gm/dL Hct 35.3 L (39.0-53.0) % Plt Count 39 L (150-450) k/uL Lymphocytes # 0.9 L (1.0-4.8) k/uL Retic Count (0.5-2.0) % PT (9.0-12.0) sec INR (<1.2) APTT (22.0-30.0) sec Sodium 131 L (137-145) mmol/L Potassium 3.0 L (3.5-5.1) mmol/L Chloride 94 L (98-107) mmol/L BUN 25 H (9-20) mg/dL Glucose 139 H (74-99) mg/dL POC Glucose (mg/dL) (75-99) mg/dL Hemoglobin A1c (4.0-6.0) % Calcium 7.2 L (8.4-10.2) mg/dL Iron 16 L (65-175) ug/dL % Saturation 5.28 L (15.00-50.00) Total Bilirubin 2.5 H (0.2-1.3) mg/dL Alkaline Phosphatase 260 H (38-126) U/L Total Protein 5.0 L (6.3-8.2) g/dL Total Protein (PEP) 4.8 L (6.2-8.2) g/dL Albumin 2.3 L (3.5-5.0) g/dL 01/02/20 01/02/20 Range/Units 05:47 12:25 RBC (4.30-5.90) m/uL Hgb (13.0-17.5) gm/dL Hct (39.0-53.0) % Plt Count (150-450) k/uL Lymphocytes # (1.0-4.8) k/uL Retic Count (0.5-2.0) % PT (9.0-12.0) sec INR (<1.2) APTT (22.0-30.0) sec Sodium (137-145) mmol/L Potassium (3.5-5.1) mmol/L Chloride (98-107) mmol/L BUN (9-20) mg/dL Glucose (74-99) mg/dL POC Glucose (mg/dL) 156 H 147 H (75-99) mg/dL Hemoglobin A1c (4.0-6.0) % Calcium (8.4-10.2) mg/dL Iron (65-175) ug/dL % Saturation (15.00-50.00) Total Bilirubin (0.2-1.3) mg/dL Alkaline Phosphatase (38-126) U/L Total Protein (6.3-8.2) g/dL Total Protein (PEP) (6.2-8.2) g/dL Albumin (3.5-5.0) g/dL Assessment and Plan Plan: Assessment and Recommendations: 1. New Renal Mass: Cystic Appearing - Urology following 2. Concerning lesion in bone 3. Abdominal Ascites: - Paracentesis - if possible with minimal fluid sample for albumin and cytology (Per IR no fluid pocket available for fluid sample, will ask to reassess) - Underlying liver disease in differential with imaging revealing hepatomegaly 4. Liver Lesion: - Check AFP 5. Thrombocytopenia:worsening - Secondary to likely underlying liver disease and Normocytic anemia - component of iron def - will await for iron supp (can be done PO and if needed IV as outpatient) - Platelets less than 50K - Hold all Anticoagulation and NSAIDS 6. 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 Hx: Prostate cancer: Likely not related to current picture PLan: - Concern for possible metastatic malignancy as well as underlying liver disease - Await Paracentesis with cytology and albumin (likely secondary to history of liver disease) - Await AFP - MRI of liver to further evaluate lesions in liver and pelvis is recommended - He was unable to undergo do to not machine size per nursing? will need to sc hedule outpatient prior to discharge. - Urolology note reviewed and await stabilization of current medical issues and then plan for tissue biopsy/surgical resection. - Discussed with GI
[2020-01-02 16:54] LABS: Glucose,Whole Blood 211 mg/dL (75-99)
[2020-01-02 19:00] LABS: Alpha Fetoprotein, Tumor Mkr <2.5 ng/mL (0.0-7.9)
[2020-01-02 20:30] LABS: Glucose,Whole Blood 188 mg/dL (75-99)
[2020-01-02] MEDS: ATORVASTATIN 40 MG TAB PO SCH (20:45)
[2020-01-02] MEDS: SODIUM CHLORIDE 0.9% 500 ML 500 ML IV SCH (20:50)
[2020-01-02] MEDS: MELATONIN 5 MG TABLET PO SCH (22:39)
[2020-01-03 06:08] LABS: Glucose,Whole Blood 140 mg/dL (75-99)
[2020-01-03 06:21] LABS: Basophils % (A) 1 %; Eosinophils # (A) 0.1 k/uL (0-0.7); Eosinophils % (A) 2 %; HCT 36.2 % (39.0-53.0); HGB 11.8 gm/dL (13.0-17.5); Hypochromasia Moderate; Lymphocytes # (A) 1.1 k/uL (1.0-4.8); Lymphocytes % (A) 21 %; MCH 28.7 pg (25.0-35.0); MCHC 32.5 g/dL (31.0-37.0); MCV 88.1 fL (80.0-100.0); Mean Platelet Volume 10.9; Monocytes # (A) 0.4 k/uL (0-1.0); Monocytes % (A) 8 %; Neutrophils # (A) 3.4 k/uL (1.3-7.7); Neutrophils % (A) 66 %; RBC 4.11 m/uL (4.30-5.90); RDW 14.7 % (11.5-15.5); WBC 5.1 k/uL (3.8-10.6)
[2020-01-03 06:26] LABS: Platelet Count 44 k/uL (150-450)
[2020-01-03] MEDS: LEVOTHYROXINE 50 MCG TAB PO SCH (06:31)
[2020-01-03 06:32] LABS: INR 1.7 (<1.2); Partial Thromboplastin Time 35.8 sec (22.0-30.0); Prothrombin Time 16.6 sec (9.0-12.0)
[2020-01-03 06:35] LABS: ALT 18 U/L (4-49); AST 58 U/L (17-59); African American GFR (CKD) >90 (>60 ml/min/1.73 sqM); Albumin 2.3 g/dL (3.5-5.0); Alkaline Phosphatase 268 U/L (38-126); Anion Gap 6 mmol/L; Blood Urea Nitrogen 25 mg/dL (9-20); Calcium 7.2 mg/dL (8.4-10.2); Carbon Dioxide 29 mmol/L (22-30); Chloride 96 mmol/L (98-107); Glucose 129 mg/dL (74-99); Magnesium 1.9 mg/dL (1.6-2.3); Non-African American GFR(CKD) 87 (>60 ml/min/1.73 sqM); Potassium 3.4 mmol/L (3.5-5.1); Sodium 131 mmol/L (137-145); Total Bilirubin 2.5 mg/dL (0.2-1.3); Total Protein 5.1 g/dL (6.3-8.2)
[2020-01-03] MEDS: INSULIN DETEMIR (LEVEMIR) 100 UNIT/ML SYR SQ SCH (06:36)
[2020-01-03] MEDS: INSULIN ASPART (NovoLOG) 100 UNIT/ML VIAL SQ SCH ×4 (07:04→21:52)
[2020-01-03] MEDS: METOPROLOL SUCCINATE (ER) 25 MG TAB.ER.24H PO SCH (08:28)
[2020-01-03] MEDS: FAMOTIDINE 20 MG TAB PO SCH ×2 (08:28→21:52)
[2020-01-03] MEDS: SPIRONOLACTONE 25 MG TAB PO SCH (08:28)
[2020-01-03] MEDS ORDERED: SODIUM FERRIC GLUCONAT-SUCROSE 125 MG in SODIUM CHLORIDE 0.9% 100 ML IVPB SCH (09:00)
--- NOTE | 2020-01-03 11:29 | P.PN ---
Subjective Progress Note Date: 01/02/20 Principal diagnosis: Ascites, elevated liver enzymes, suspected cirrhosis Patient is seen lying in bed today. Extensive discussion with the patient has daughter regarding dietary modifications including sodium restricted diet and diuretic therapy for treatment of ascites. Objective - Vital Signs Vital signs: Vital Signs Temp 97.0 F L 01/01/20 23:51 Pulse 80 01/02/20 12:00 Resp 16 01/02/20 12:00 BP 114/73 01/02/20 12:00 Pulse Ox 98 01/02/20 12:00 Intake & Output 01/01/20 01/02/20 01/02/20 18:59 06:59 18:59 Intake Total 840 400 0 Balance 840 400 0 Weight 91.2 kg 92.3 kg Intake: Intake, IV Titration 400 Amount Sodium Chloride 0.9% 500 400 ml 500 ml @ 50 mls/hr IV .Q10H [facility], [facility]–1983 Rx#:[id number] Oral 840 0 Other: Voiding Method Urinal Toilet Toilet # Voids 3 2 # Bowel Movements 1 - Exam On physical examination, patient appears comfortable in no apparent distress. HEAD: Normocephalic, atraumatic. EYES: No scleral icterus. No conjunctival injection. MOUTH: No lesions, tongue midline. NECK: Trachea midline, no gross abnormalities. ABDOMEN: Soft, obese, mildly distended. Bowel sounds are positive. No organomegaly. No guarding or rigidity. EXTREMITIES: No pedal edema. SKIN: No rashes, no jaundice. NEUROLOGIC: Alert and oriented x3. No focal deficits. - Labs CBC & Chem 7: 01/03/20 05:45 01/03/20 05:45 Labs: Abnormal Lab Results - Last 24 Hours (Table) 01/01/20 01/01/20 01/01/20 Range/Units 10:29 17:00 17:04 RBC 4.04 L (4.30-5.90) m/uL Hgb 11.6 L (13.0-17.5) gm/dL Hct 36.0 L (39.0-53.0) % Plt Count 46 L (150-450) k/uL Lymphocytes # 0.7 L (1.0-4.8) k/uL Retic Count 4.9 H (0.5-2.0) % PT (9.0-12.0) sec INR (<1.2) APTT (22.0-30.0) sec Sodium (137-145) mmol/L Potassium (3.5-5.1) mmol/L Chloride (98-107) mmol/L BUN (9-20) mg/dL Glucose (74-99) mg/dL POC Glucose (mg/dL) 217 H (75-99) mg/dL Calcium (8.4-10.2) mg/dL Iron 18 L (65-175) ug/dL % Saturation (15.00-50.00) Total Bilirubin (0.2-1.3) mg/dL Alkaline Phosphatase (38-126) U/L Total Protein (6.3-8.2) g/dL Total Protein (PEP) (6.2-8.2) g/dL Albumin (3.5-5.0) g/dL 01/01/20 01/01/20 01/02/20 Range/Units 17:04 21:33 05:31 RBC (4.30-5.90) m/uL Hgb (13.0-17.5) gm/dL Hct (39.0-53.0) % Plt Count (150-450) k/uL Lymphocytes # (1.0-4.8) k/uL Retic Count (0.5-2.0) % PT 16.6 H (9.0-12.0) sec INR 1.7 H (<1.2) APTT 31.6 H (22.0-30.0) sec Sodium (137-145) mmol/L Potassium (3.5-5.1) mmol/L Chloride (98-107) mmol/L BUN (9-20) mg/dL Glucose (74-99) mg/dL POC Glucose (mg/dL) 172 H (75-99) mg/dL Calcium (8.4-10.2) mg/dL Iron (65-175) ug/dL % Saturation (15.00-50.00) Total Bilirubin (0.2-1.3) mg/dL Alkaline Phosphatase (38-126) U/L Total Protein (6.3-8.2) g/dL Total Protein (PEP) 4.8 L (6.2-8.2) g/dL Albumin (3.5-5.0) g/dL 01/02/20 01/02/20 01/02/20 Range/Units 05:31 05:31 05:47 RBC 4.08 L (4.30-5.90) m/uL Hgb 11.3 L (13.0-17.5) gm/dL Hct 35.3 L (39.0-53.0) % Plt Count 39 L (150-450) k/uL Lymphocytes # 0.9 L (1.0-4.8) k/uL Retic Count (0.5-2.0) % PT (9.0-12.0) sec INR (<1.2) APTT (22.0-30.0) sec Sodium 131 L (137-145) mmol/L Potassium 3.0 L (3.5-5.1) mmol/L Chloride 94 L (98-107) mmol/L BUN 25 H (9-20) mg/dL Glucose 139 H (74-99) mg/dL POC Glucose (mg/dL) 156 H (75-99) mg/dL Calcium 7.2 L (8.4-10.2) mg/dL Iron 16 L (65-175) ug/dL % Saturation 5.28 L (15.00-50.00) Total Bilirubin 2.5 H (0.2-1.3) mg/dL Alkaline Phosphatase 260 H (38-126) U/L Total Protein 5.0 L (6.3-8.2) g/dL Total Protein (PEP) (6.2-8.2) g/dL Albumin 2.3 L (3.5-5.0) g/dL 01/02/20 Range/Units 12:25 RBC (4.30-5.90) m/uL Hgb (13.0-17.5) gm/dL Hct (39.0-53.0) % Plt Count (150-450) k/uL Lymphocytes # (1.0-4.8) k/uL Retic Count (0.5-2.0) % PT (9.0-12.0) sec INR (<1.2) APTT (22.0-30.0) sec Sodium (137-145) mmol/L Potassium (3.5-5.1) mmol/L Chloride (98-107) mmol/L BUN (9-20) mg/dL Glucose (74-99) mg/dL POC Glucose (mg/dL) 147 H (75-99) mg/dL Calcium (8.4-10.2) mg/dL Iron (65-175) ug/dL % Saturation (15.00-50.00) Total Bilirubin (0.2-1.3) mg/dL Alkaline Phosphatase (38-126) U/L Total Protein (6.3-8.2) g/dL Total Protein (PEP) (6.2-8.2) g/dL Albumin (3.5-5.0) g/dL Assessment and Plan (1) Elevated liver enzymes Narrative/Plan: 79-year-old male with multiple medical comorbidities presented to the hospital for fatigue, shortness of breath, and fluid overload. Patient has no history of underlying liver disease or cirrhosis per his knowledge, but he does have a significant history of alcohol use in the past. On presentation found to have lower extremity and abdominal fluid overload with a ascites noted on CT scan. Recently started on Lasix in the outpatient setting by his food scientist patient's laboratory evaluation including a depressed platelet count of 47,000, elevated liver enzymes with total bilirubin 2.6, alkaline phosphatase 250, AST 58 and ALT 17 with an elevated INR of 1.6 are concerning for underlying cirrhotic liver. Ammonia also elevated at 43 but no evidence of encephalopathy clinically. CT scan which was performed in evaluation was negative for any acute intra-abdominal process but did show hepatosplenomegaly with fatty infiltration of the liver, as well as a large exophytic cystic lesion of the right kidney and ascites. Current Visit: Yes Status: Acute Code(s): R74.8 - ABNORMAL LEVELS OF OTHER SERUM ENZYMES SNOMED Code(s): 897384287 (2) Ascites Current Visit: Yes Status: Acute Code(s): R18.8 - OTHER ASCITES SNOMED Code(s): 205966588 (3) Right kidney mass Current Visit: Yes Status: Acute Code(s): N28.89 - OTHER SPECIFIED DISORDERS OF KIDNEY AND URETER SNOMED Code(s): 404307121 Plan: Supportive care Okay for diet as tolerated Patient should maintain a 2000 mg sodium restricted diet, dietitian consult has been placed for further instruction Aldactone daily has been added, addition of Lasix is being held due to hypokalemia but would likely benefit from this after discharge Continue to monitor CBC, BMP, LFTs Paracentesis ordered Follow up with GI after discharge Thank you for allowing us to participate in the care of the patient we will continue to follow
--- NOTE | 2020-01-03 11:36 | P.PN ---
Subjective Progress Note Date: 01/02/20 Principal diagnosis: Worsening shortness of breath secondary to pleural effusion, ascites likely due to underlying liver disease. Patient is 79-year-old male with a known history of hypertension, hyperlipidemia, diabetes type 2 insulin-dependent, hypothyroidism, CHF and prostate cancer diagnosed in 2007 came to ER with complaints of increasing f atigue, shortness of breath and increased abdominal girth. Patient was also having bilateral lower extremity swelling. Patient was recently seen by his clinical recruiter and was started on Lasix 3 to 4 days ago. His leg swelling did improve with Lasix. Patient states that he has been increasingly short of breath even with minimal activity and occasional sharp pains in the chest. Patient was also having dizziness with standing. No syncopal episode. Patient does have cough without sputum production. Denies any fever or chills. No nausea vomiting or diarrhea. No dysuria or hematuria. Denied any other recent illnesses. Patient was taking Lasix and Zaroxolyn at home. Laboratory data showed WBC 5.1, hemoglobin 12.5, platelets 47, INR 1.6, sodium 139, potassium 3.0 and chloride 90, BUN 21 and creatinine 0.83 Lactic acid 4.4 on admission Alk phos 279 Albumin 2.7 BNP 340 AST 58 and ALT 22 Urinalysis negative for infection Chest x-ray showed small effusions and associated atelectasis. Correlate to exclude pneumonia. CT of the abdomen pelvis showed no bowel obstruction. Hepatosplenomegaly with possible fatty infiltration of the liver are underlying hepatocellular disease. Correlate clinically. Cannot exclude infiltrative process or disease in the spleen versus diminished perfusion. Small to moderate amount of pelvic ascites. Small amount of diffuse soft tissue anasarca. Avelina picious large exophytic cystic lesion lower pole right kidney at least Bosniak type III lesion. Surgical referral advised. Subtle nonspecific lytic lesions lytic metastatic disease cannot be excluded particularly given the above #3 finding. 01/02/20 patient is currently sitting in the side of the bed comfortably. Denied any complaints of abdominal pain. Shortness of breath did improve. Patient has been afebrile. Otherwise patient did have ultrasound of the liver yesterday showed findings consistent with hepatocellular disease, possible hepatic steatosis, hepatomegaly. Findings could possibly represent chronic cholecystitis possible holesterolosis. Ultrasound-guided paracentesis was attempted but there was not enough pocket of fluid. Hepatitis panel is negative. Iron studies showed iron level of 16 and saturation of 5.28 Ammonia level is 43 LDH 495 Albumin 2.3 tumor markers including alpha 1 antitrypsin and AFP level not elevated TSH and cortisol within normal limits Ceruloplasmin level is within normal limits. TERRANCE negative. Patient was seen by GI and recommended MRI of the liver. Patient is also getting bone scan due to history of previous prostate cancer. Current medications reviewed. Objective - Vital Signs Vital signs: Vital Signs Temp 97.0 F L 01/01/20 23:51 Pulse 80 01/02/20 12:00 Resp 16 01/02/20 16:00 BP 114/73 01/02/20 12:00 Pulse Ox 98 01/02/20 12:00 Intake & Output 01/01/20 01/02/20 01/02/20 18:59 06:59 18:59 Intake Total 840 400 520 Balance 840 400 520 Weight 91.2 kg 92.3 kg 92.3 kg Intake: Intake, IV Titration 400 400 Amount Sodium Chloride 0.9% 500 400 400 ml 500 ml @ 50 mls/hr IV .Q10H [facility] Rx#:[id number] Oral 840 120 Other: Voiding Method Urinal Toilet Toilet # Voids 3 2 # Bowel Movements 1 - Exam PHYSICAL EXAMINATION: Patient is lying in the bed comfortably, no acute distress, awake alert and oriented.. HEENT: Normocephalic. Neck is supple. Pupils reactive. Nostrils clear. Oral cavity is moist. Ears reveal no drainage. Neck reveals no JVD, carotid bruits, or thyromegaly. CHEST EXAMINATION: Trachea is central. Symmetrical expansion.Bibasilar diminished air entry. Lung ribera clear to auscultation and percussion. CARDIAC: Normal S1, S2 with no gallops. No murmurs ABDOMEN: Soft.Distended with ascites. Bowel sounds normal. organomegaly Cannot be assessed. . No abdominal bruits. Extremities: reveal no edema. No clubbing or cyanosis Neurologically awake, alert, oriented x3 with well-coordinated movements. No focal deficits noted Skin: No rash or skin lesions. Psychiatric: Coperative. Nonsuicidal Musculoskeletal: No joint swelling or deformity. Normal range of motion. - Labs CBC & Chem 7: 01/03/20 05:45 01/03/20 05:45 Labs: Abnormal Lab Results - Last 24 Hours (Table) 01/01/20 01/01/20 01/01/20 Range/Units 17:04 17:04 21:33 RBC 4.04 L (4.30-5.90) m/uL Hgb 11.6 L (13.0-17.5) gm/dL Hct 36.0 L (39.0-53.0) % Plt Count 46 L (150-450) k/uL Lymphocytes # 0.7 L (1.0-4.8) k/uL Retic Count 4.9 H (0.5-2.0) % PT 16.6 H (9.0-12.0) sec INR 1.7 H (<1.2) APTT 31.6 H (22.0-30.0) sec Sodium (137-145) mmol/L Potassium (3.5-5.1) mmol/L Chloride (98-107) mmol/L BUN (9-20) mg/dL Glucose (74-99) mg/dL POC Glucose (mg/dL) 172 H (75-99) mg/dL Calcium (8.4-10.2) mg/dL Iron (65-175) ug/dL % Saturation (15.00-50.00) Total Bilirubin (0.2-1.3) mg/dL Alkaline Phosphatase (38-126) U/L Total Protein (6.3-8.2) g/dL Total Protein (PEP) (6.2-8.2) g/dL Albumin (3.5-5.0) g/dL 01/02/20 01/02/20 01/02/20 Range/Units 05:31 05:31 05:31 RBC 4.08 L (4.30-5.90) m/uL Hgb 11.3 L (13.0-17.5) gm/dL Hct 35.3 L (39.0-53.0) % Plt Count 39 L (150-450) k/uL Lymphocytes # 0.9 L (1.0-4.8) k/uL Retic Count (0.5-2.0) % PT (9.0-12.0) sec INR (<1.2) APTT (22.0-30.0) sec Sodium 131 L (137-145) mmol/L Potassium 3.0 L (3.5-5.1) mmol/L Chloride 94 L (98-107) mmol/L BUN 25 H (9-20) mg/dL Glucose 139 H (74-99) mg/dL POC Glucose (mg/dL) (75-99) mg/dL Calcium 7.2 L (8.4-10.2) mg/dL Iron 16 L (65-175) ug/dL % Saturation 5.28 L (15.00-50.00) Total Bilirubin 2.5 H (0.2-1.3) mg/dL Alkaline Phosphatase 260 H (38-126) U/L Total Protein 5.0 L (6.3-8.2) g/dL Total Protein (PEP) 4.8 L (6.2-8.2) g/dL Albumin 2.3 L (3.5-5.0) g/dL 01/02/20 01/02/20 01/02/20 Range/Units 05:47 12:25 16:52 RBC (4.30-5.90) m/uL Hgb (13.0-17.5) gm/dL Hct (39.0-53.0) % Plt Count (150-450) k/uL Lymphocytes # (1.0-4.8) k/uL Retic Count (0.5-2.0) % PT (9.0-12.0) sec INR (<1.2) APTT (22.0-30.0) sec Sodium (137-145) mmol/L Potassium (3.5-5.1) mmol/L Chloride (98-107) mmol/L BUN (9-20) mg/dL Glucose (74-99) mg/dL POC Glucose (mg/dL) 156 H 147 H 211 H (75-99) mg/dL Calcium (8.4-10.2) mg/dL Iron (65-175) ug/dL % Saturation (15.00-50.00) Total Bilirubin (0.2-1.3) mg/dL Alkaline Phosphatase (38-126) U/L Total Protein (6.3-8.2) g/dL Total Protein (PEP) (6.2-8.2) g/dL Albumin (3.5-5.0) g/dL Assessment and Plan Assessment: Worsening shortness of breath secondary to pleural effusion, ascites likely due to underlying liver disease.improving now. Hepatosplenomegaly with fatty infiltration of the liver. Small to moderate pelvic ascites. ultrasound guidedparacentesiswas attempted but not enough fluid. Large cystic lesion lower pole of the right kidney Nonspecific lytic metastatic lesions on the CT History of prostate cancer diagnosed in 2007 Hyponatremia likely hypovolemic Thrombocytopenia secondary to liver disease. Hypertension Hyperlipidemia Diabetes type 2 insulin-dependent History of thyroid cancer status post surgical resection and currently on thyroid replacement. Coagulopathy secondary to liver disease Hypokalemia HX of smoking. Plan: Patient will be continued gently IV hydration and replace electrolytes. Continue with insulin dosing and sliding scale. GI prophylaxis. Gastroenterology service was consulted due to hepatocellular disease. Urology was consulted due to right lower pole cystic mass for which outpatient work-up was indicated. Monitor electrolytes and follow-up closely. Prognosis guarded. Discussed with his family at bedside in detail. Patient may need to be transferred to tertiary care facility if the further work-up is negative.. Time with Patient: Greater than 30
[2020-01-03 12:06] LABS: Glucose,Whole Blood 198 mg/dL (75-99)
[2020-01-03 14:12] LABS: Liver/Kidney Microsome Antibod 1.3 UNITS (<=20)
[2020-01-03 14:16] LABS: Albumin 2.19 g/dL (3.80-4.90)
--- NOTE | 2020-01-03 14:30 | P.PN ---
Subjective Progress Note Date: 01/03/20 Principal diagnosis: Renal mass and ascites Awaiting to see if able to make transportation arrangements to [facility] for patient to undergo MRI of liver. Discussed abdominal ascites and ability to safely obtain ascites fluid sample, unfortunately not an area available for sample aspirate. Will as Dr. Aponte to obtain Objective - Vital Signs Vital signs: Vital Signs Temp 97.4 F L 01/03/20 08:00 Pulse 71 01/03/20 12:00 Resp 16 01/03/20 12:00 BP 131/71 01/03/20 12:00 Pulse Ox 98 01/03/20 12:00 Intake & Output 01/02/20 01/03/20 01/03/20 18:59 06:59 18:59 Intake Total 700 680 240 Balance 700 680 240 Weight 92.3 kg 89 kg Intake: Intake, IV Titration 400 200 Amount Sodium Chloride 0.9% 500 400 200 ml 500 ml @ 50 mls/hr IV .Q10H [facility] Rx#:[id number] Oral 300 480 240 Other: Voiding Method Toilet Toilet # Voids 2 0 - Exam - Constitutional General appearance: cooperative, mild distress - EENT Eyes: EOMI, PERRLA, dentition normal ENT: hard of hearing, NA/AT, normal oropharynx - Neck Neck: normal ROM - Respiratory Respiratory: bilateral: diminished (mild increased effort) - Cardiovascular Rhythm: irregularly irregular leg Peripheral Edema: bilateral: 1+ - Gastrointestinal Abdominal Ascites noted General gastrointestinal: distended, soft, tenderness - Neurologic Neurologic: CNII-XII intact - Musculoskeletal Musculoskeletal: generalized weakness, strength equal bilaterally - Psychiatric Psychiatric: A&O x's 3, appropriate affect, intact judgment & insight - Labs CBC & Chem 7: 01/03/20 05:45 01/03/20 05:45 Labs: Abnormal Lab Results - Last 24 Hours (Table) 01/02/20 01/02/20 01/03/20 Range/Units 16:52 20:29 05:45 RBC (4.30-5.90) m/uL Hgb (13.0-17.5) gm/dL Hct (39.0-53.0) % Plt Count (150-450) k/uL PT (9.0-12.0) sec INR (<1.2) APTT (22.0-30.0) sec Sodium 131 L (137-145) mmol/L Potassium 3.4 L (3.5-5.1) mmol/L Chloride 96 L (98-107) mmol/L BUN 25 H (9-20) mg/dL Glucose 129 H (74-99) mg/dL POC Glucose (mg/dL) 211 H 188 H (75-99) mg/dL Calcium 7.2 L (8.4-10.2) mg/dL Total Bilirubin 2.5 H (0.2-1.3) mg/dL Alkaline Phosphatase 268 H (38-126) U/L Total Protein 5.1 L (6.3-8.2) g/dL Albumin 2.3 L (3.5-5.0) g/dL 01/03/20 01/03/20 01/03/20 Range/Units 05:45 05:45 06:07 RBC 4.11 L (4.30-5.90) m/uL Hgb 11.8 L (13.0-17.5) gm/dL Hct 36.2 L (39.0-53.0) % Plt Count 44 L (150-450) k/uL PT 16.6 H (9.0-12.0) sec INR 1.7 H (<1.2) APTT 35.8 H (22.0-30.0) sec Sodium (137-145) mmol/L Potassium (3.5-5.1) mmol/L Chloride (98-107) mmol/L BUN (9-20) mg/dL Glucose (74-99) mg/dL POC Glucose (mg/dL) 140 H (75-99) mg/dL Calcium (8.4-10.2) mg/dL Total Bilirubin (0.2-1.3) mg/dL Alkaline Phosphatase (38-126) U/L Total Protein (6.3-8.2) g/dL Albumin (3.5-5.0) g/dL 01/03/20 Range/Units 12:03 RBC (4.30-5.90) m/uL Hgb (13.0-17.5) gm/dL Hct (39.0-53.0) % Plt Count (150-450) k/uL PT (9.0-12.0) sec INR (<1.2) APTT (22.0-30.0) sec Sodium (137-145) mmol/L Potassium (3.5-5.1) mmol/L Chloride (98-107) mmol/L BUN (9-20) mg/dL Glucose (74-99) mg/dL POC Glucose (mg/dL) 198 H (75-99) mg/dL Calcium (8.4-10.2) mg/dL Total Bilirubin (0.2-1.3) mg/dL Alkaline Phosphatase (38-126) U/L Total Protein (6.3-8.2) g/dL Albumin (3.5-5.0) g/dL Assessment and Plan Plan: Assessment and Recommendations: 1. New Renal Mass: Cystic Appearing - Urology following - Intervention after stabilized and discharged 2. Concerning lesion in bone: - reviewed Bone scan. Will obtain MRI of pelvis at same time of Abdomen (liver) to further evaluate 3. Abdominal Ascites: - Paracentesis - if possible with minimal fluid sample for albumin and cytology (Per IR no fluid pocket available for fluid sample, will ask to reassess) - Underlying liver disease in differential with imaging revealing hepatomegaly - Will ask Dr. Aponte to pull pleural fluid for sampling if possible 4. Liver Lesion: - Check AFP, pending 5. Thrombocytopenia:worsening - Secondary to likely underlying liver disease and Normocytic anemia - component of iron def - will await for iron supp (can be done PO and if needed IV as outpatient) - Platelets less than 50K - Hold all Anticoagulation and NSAIDS 6. 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 Hx: Prostate cancer: Likely not related to current picture PLan: - Pleural fluid tap, since abdominal ascites unable to pull from - Await AFP - MRI of liver to further evaluate lesions in liver and pelvis is recommended - He was unable to undergo do to not machine size per nursing? will need to schedule outpatient prior to discharge if possible will transport to open MRI while inpatient. If unable to arrange will just make sure patient is scheduled soon after discharge
--- NOTE | 2020-01-03 16:04 | P.PN ---
Subjective Progress Note Date: 01/03/20 On today's evaluation of 01/03/2020, the patient is comfortable and sitting up on a recliner. He continues to have some increased swelling in lower extremities bilaterally. On today's evaluation ammonia level less than 5. INR is at 1.7 with a PT of 16.6. White cell count of 5.1. The patient has no si gnificant elevation of the SGOT and SGPT. The ocular phosphatase is at 268. A nuclear bone scan was done and there is mild anterior increased uptake in the distal left femur which is indeterminate. There is also mild uptake in the wrist shoulder and knees and it's likely degenerative in nature. Uptake in the costovertebral angles are also degenerative in nature. Patient was unable to complete the MRI as the patient was unable to fit in our MRI machine. The mother states fluid is small and not amenable for paracentesis. Pleural fluid is also small and not amenable for thoracentesis. Objective - Vital Signs Vital signs: Vital Signs Temp 97.4 F L 01/03/20 08:00 Pulse 71 01/03/20 12:00 Resp 16 01/03/20 12:00 BP 131/71 01/03/20 12:00 Pulse Ox 98 01/03/20 12:00 Intake & Output 01/02/20 01/03/20 01/03/20 18:59 06:59 18:59 Intake Total 700 680 840 Balance 700 680 840 Weight 92.3 kg 89 kg Intake: Intake, IV Titration 400 200 Amount Sodium Chloride 0.9% 500 400 200 ml 500 ml @ 50 mls/hr IV .Q10H [facility] Rx#:[id number] Oral 300 480 840 Other: Voiding Method Toilet Toilet # Voids 2 2 - Exam GENERAL EXAM: Alert, very pleasant, 79-year-old, sitting up on the bed, currently on room air, his pulse ox is 90% on room air, comfortable in no apparent distress. HEAD: Normocephalic/atraumatic. EYES: Normal reaction of pupils, equal size. Conjunctiva pink, sclera white. NOSE: Clear with pink turbinates. THROAT: No erythema or exudates. NECK: No masses, no JVD, no thyroid enlargement, no adenopathy. CHEST: No chest wall deformity. Symmetrical expansion. LUNGS: Equal air entry with no crackles, wheeze, rhonchi or dullness. CVS: Regular rate and rhythm, normal S1 and S2, no gallops, no murmurs, no rubs ABDOMEN: Soft, nontender, obese, and some distention and abdominal wall swelling. No hepatosplenomegaly, normal bowel sounds, no guarding or rigidity. EXTREMITIES: No clubbing, 1+ to 2+ lower extremity edema, no cyanosis, 2+ pulses and upper and lower extremities. MUSCULOSKELETAL: Muscle strength and tone normal. SPINE: No scoliosis or deformity SKIN: No rashes CENTRAL NERVOUS SYSTEM: Alert and oriented -3. No focal deficits, tone is normal in all 4 extremities. PSYCHIATRIC: Alert and oriented -3. Appropriate affect. Intact judgment and insight. - Labs CBC & Chem 7: 01/03/20 05:45 01/03/20 05:45 Labs: Abnormal Lab Results - Last 24 Hours (Table) 01/02/20 01/02/20 01/02/20 Range/Units 05:31 16:52 20:29 RBC (4.30-5.90) m/uL Hgb (13.0-17.5) gm/dL Hct (39.0-53.0) % Plt Count (150-450) k/uL PT (9.0-12.0) sec INR (<1.2) APTT (22.0-30.0) sec Sodium (137-145) mmol/L Potassium (3.5-5.1) mmol/L Chloride (98-107) mmol/L BUN (9-20) mg/dL Glucose (74-99) mg/dL POC Glucose (mg/dL) 211 H 188 H (75-99) mg/dL Calcium (8.4-10.2) mg/dL Total Bilirubin (0.2-1.3) mg/dL Alkaline Phosphatase (38-126) U/L Total Protein (6.3-8.2) g/dL Albumin (3.5-5.0) g/dL Albumin (PEP) 2.19 L (3.80-4.90) g/dL Hgbio-3-Adudnuhpv 0.41 L (0.60-1.00) g/dL 01/03/20 01/03/20 01/03/20 Range/Units 05:45 05:45 05:45 RBC 4.11 L (4.30-5.90) m/uL Hgb 11.8 L (13.0-17.5) gm/dL Hct 36.2 L (39.0-53.0) % Plt Count 44 L (150-450) k/uL PT 16.6 H (9.0-12.0) sec INR 1.7 H (<1.2) APTT 35.8 H (22.0-30.0) sec Sodium 131 L (137-145) mmol/L Potassium 3.4 L (3.5-5.1) mmol/L Chloride 96 L (98-107) mmol/L BUN 25 H (9-20) mg/dL Glucose 129 H (74-99) mg/dL POC Glucose (mg/dL) (75-99) mg/dL Calcium 7.2 L (8.4-10.2) mg/dL Total Bilirubin 2.5 H (0.2-1.3) mg/dL Alkaline Phosphatase 268 H (38-126) U/L Total Protein 5.1 L (6.3-8.2) g/dL Albumin 2.3 L (3.5-5.0) g/dL Albumin (PEP) (3.80-4.90) g/dL Lcuml-8-Ynrubgtwv (0.60-1.00) g/dL 01/03/20 01/03/20 Range/Units 06:07 12:03 RBC (4.30-5.90) m/uL Hgb (13.0-17.5) gm/dL Hct (39.0-53.0) % Plt Count (150-450) k/uL PT (9.0-12.0) sec INR (<1.2) APTT (22.0-30.0) sec Sodium (137-145) mmol/L Potassium (3.5-5.1) mmol/L Chloride (98-107) mmol/L BUN (9-20) mg/dL Glucose (74-99) mg/dL POC Glucose (mg/dL) 140 H 198 H (75-99) mg/dL Calcium (8.4-10.2) mg/dL Total Bilirubin (0.2-1.3) mg/dL Alkaline Phosphatase (38-126) U/L Total Protein (6.3-8.2) g/dL Albumin (3.5-5.0) g/dL Albumin (PEP) (3.80-4.90) g/dL Irkdu-7-Tuomvgneo (0.60-1.00) g/dL Assessment and Plan Plan: #1. Dyspnea related to significant peripheral fluid retention, abdominal distention, and small pleural effusions, likely related to underlying liver disease. The patient has stigmata of chronic liver failure. The patient has hepatosplenomegaly. The patient has coagulopathy elevated ammonia level and thrombocytopenia in addition to ascites and pleural effusion and this presentation is very typical of chronic liver disease. Viral profile for hepatitis has been negative. ANAs negative. AMA antibodies are negative. Rest of the workup is still pending. Consider alcoholic versus nonalcoholic steatohepatitis. #2. Small right-sided pleural effusion secondary to above #3. Large exophytic cystic lesion in the lower pole of the right kidney, urology evaluating. #4. Subtle nonspecific lytic lesions, rule out metastatic disease, medical oncology consulted, and the bone scan is nonspecific #5. Hyponatremia, secondary to above, improved #7. Small amount of ascites, hepatosplenomegaly #8. Hyperbilirubinemia #9. 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 Hyperlipidemia #11. 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 Type 2 diabetes mellitus #13. History of prostate cancer Plan Discussed the findings with the patient. The pleural fluid is small and not amenable for thoracentesis. He will need to be seen by a liver specialist r egarding the above-mentioned findings. May benefit from a liver biopsy. We'll be glad to drain the right-sided pleural effusion if it gets worse or increased in size over time it becomes more symptomatic. The patient for now is on Aldactone 50 mg by mouth daily. As for the medication be kept unchanged. Follow-up with Dr. Sarabia in the office.
[2020-01-03 16:53] LABS: Glucose,Whole Blood 207 mg/dL (75-99)
[2020-01-03 20:11] LABS: Glucose,Whole Blood 178 mg/dL (75-99)
[2020-01-03] MEDS: ATORVASTATIN 40 MG TAB PO SCH (21:52)
[2020-01-03] MEDS: MELATONIN 5 MG TABLET PO SCH (21:54)
--- NOTE | 2020-01-03 22:37 | P.PN ---
Subjective Progress Note Date: 01/03/20 Principal diagnosis: Ascites, elevated liver enzymes, suspected cirrhosis Patient is seen staining bedside today. No acute complaints. 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 Objective - Vital Signs Vital signs: Vital Signs Temp 97.4 F L 01/03/20 08:00 Pulse 98 01/03/20 08:00 Resp 16 01/03/20 08:00 BP 146/75 01/03/20 08:00 Pulse Ox 97 01/03/20 08:00 Intake & Output 01/02/20 01/03/20 01/03/20 18:59 06:59 18:59 Intake Total 700 680 240 Balance 700 680 240 Weight 92.3 kg 89 kg Intake: Intake, IV Titration 400 200 Amount Sodium Chloride 0.9% 500 400 200 ml 500 ml @ 50 mls/hr IV .Q10H [facility] Rx#:[id number] Oral 300 480 240 Other: Voiding Method Toilet Toilet # Voids 2 0 - Exam On physical examination, patient appears comfortable in no apparent distress. HEAD: Normocephalic, atraumatic. EYES: No scleral icterus. No conjunctival injection. MOUTH: No lesions, tongue midline. NECK: Trachea midline, no gross abnormalities. ABDOMEN: Soft, obese, mildly distended. Bowel sounds are positive. No organomegaly. No guarding or rigidity. EXTREMITIES: No pedal edema. SKIN: No rashes, no jaundice. NEUROLOGIC: Alert and oriented x3. No focal deficits. - Labs CBC & Chem 7: 01/03/20 05:45 01/03/20 05:45 Labs: Abnormal Lab Results - Last 24 Hours (Table) 01/02/20 01/02/20 01/02/20 Range/Units 05:31 05:31 12:25 RBC (4.30-5.90) m/uL Hgb (13.0-17.5) gm/dL Hct (39.0-53.0) % Plt Count (150-450) k/uL PT (9.0-12.0) sec INR (<1.2) APTT (22.0-30.0) sec Sodium (137-145) mmol/L Potassium (3.5-5.1) mmol/L Chloride (98-107) mmol/L BUN (9-20) mg/dL Glucose (74-99) mg/dL POC Glucose (mg/dL) 147 H (75-99) mg/dL Calcium (8.4-10.2) mg/dL Iron 16 L (65-175) ug/dL % Saturation 5.28 L (15.00-50.00) Total Bilirubin (0.2-1.3) mg/dL Alkaline Phosphatase (38-126) U/L Total Protein (6.3-8.2) g/dL Total Protein (PEP) 4.8 L (6.2-8.2) g/dL Albumin (3.5-5.0) g/dL 01/02/20 01/02/20 01/03/20 Range/Units 16:52 20:29 05:45 RBC (4.30-5.90) m/uL Hgb (13.0-17.5) gm/dL Hct (39.0-53.0) % Plt Count (150-450) k/uL PT (9.0-12.0) sec INR (<1.2) APTT (22.0-30.0) sec Sodium 131 L (137-145) mmol/L Potassium 3.4 L (3.5-5.1) mmol/L Chloride 96 L (98-107) mmol/L BUN 25 H (9-20) mg/dL Glucose 129 H (74-99) mg/dL POC Glucose (mg/dL) 211 H 188 H (75-99) mg/dL Calcium 7.2 L (8.4-10.2) mg/dL Iron (65-175) ug/dL % Saturation (15.00-50.00) Total Bilirubin 2.5 H (0.2-1.3) mg/dL Alkaline Phosphatase 268 H (38-126) U/L Total Protein 5.1 L (6.3-8.2) g/dL Total Protein (PEP) (6.2-8.2) g/dL Albumin 2.3 L (3.5-5.0) g/dL 01/03/20 01/03/20 01/03/20 Range/Units 05:45 05:45 06:07 RBC 4.11 L (4.30-5.90) m/uL Hgb 11.8 L (13.0-17.5) gm/dL Hct 36.2 L (39.0-53.0) % Plt Count 44 L (150-450) k/uL PT 16.6 H (9.0-12.0) sec INR 1.7 H (<1.2) APTT 35.8 H (22.0-30.0) sec Sodium (137-145) mmol/L Potassium (3.5-5.1) mmol/L Chloride (98-107) mmol/L BUN (9-20) mg/dL Glucose (74-99) mg/dL POC Glucose (mg/dL) 140 H (75-99) mg/dL Calcium (8.4-10.2) mg/dL Iron (65-175) ug/dL % Saturation (15.00-50.00) Total Bilirubin (0.2-1.3) mg/dL Alkaline Phosphatase (38-126) U/L Total Protein (6.3-8.2) g/dL Total Protein (PEP) (6.2-8.2) g/dL Albumin (3.5-5.0) g/dL 01/03/20 Range/Units 12:03 RBC (4.30-5.90) m/uL Hgb (13.0-17.5) gm/dL Hct (39.0-53.0) % Plt Count (150-450) k/uL PT (9.0-12.0) sec INR (<1.2) APTT (22.0-30.0) sec Sodium (137-145) mmol/L Potassium (3.5-5.1) mmol/L Chloride (98-107) mmol/L BUN (9-20) mg/dL Glucose (74-99) mg/dL POC Glucose (mg/dL) 198 H (75-99) mg/dL Calcium (8.4-10.2) mg/dL Iron (65-175) ug/dL % Saturation (15.00-50.00) Total Bilirubin (0.2-1.3) mg/dL Alkaline Phosphatase (38-126) U/L Total Protein (6.3-8.2) g/dL Total Protein (PEP) (6.2-8.2) g/dL Albumin (3.5-5.0) g/dL Assessment and Plan (1) Elevated liver enzymes Narrative/Plan: 79-year-old male with multiple medical comorbidities presented to the hospital for fatigue, shortness of breath, and fluid overload. Patient has no history of underlying liver disease or cirrhosis per his knowledge, but he does have a significant history of alcohol use in the past. On presentation found to have lower extremity and abdominal fluid overload with a ascites noted on CT scan. Recently started on Lasix in the outpatient setting by his computer forensics examiner patient's laboratory evaluation including a depressed platelet count of 47,000, elevated liver enzymes with total bilirubin 2.6, alkaline phosphatase 250, AST 58 and ALT 17 with an elevated INR of 1.6 are concerning for underlying cirrhotic liver. Ammonia also elevated at 43 but no evidence of encephalopathy clinically. CT scan which was performed in evaluation was negative for any acute intra-abdominal process but did show hepatosplenomegaly with fatty infiltration of the liver, as well as a large exophytic cystic lesion of the right kidney and ascites. Current Visit: Yes Status: Acute Code(s): R74.8 - ABNORMAL LEVELS OF OTHER SERUM ENZYMES SNOMED Code(s): 732925536 (2) Ascites Current Visit: Yes Status: Acute Code(s): R18.8 - OTHER ASCITES SNOMED Code(s): 089837944 (3) Right kidney mass Current Visit: Yes Status: Acute Code(s): N28.89 - OTHER SPECIFIED DISORDERS OF KIDNEY AND URETER SNOMED Code(s): 910938524 Plan: Supportive care Okay for diet as tolerated Patient should maintain a 2000 mg sodium restricted diet, dietitian consult has been placed for further instruction Aldactone daily has been added, addition of Lasix is being held due to hypokalemia but would likely benefit from this after discharge, potassium somewhat improved today and consider addition of Lasix 20 mg daily if stable tomorrow Continue to monitor CBC, BMP, LFTs Paracentesis ordered, however no large pocket identified Follow up with GI after discharge Thank you for allowing us to participate in the care of the patient we will continue to follow
[2020-01-04] MEDS ORDERED: POTASSIUM CHLORIDE ER 20 MEQ TAB.ER PO STA (02:20)
[2020-01-04 04:22] VITALS: TEMP 97.9
[2020-01-04 06:20] LABS: Glucose,Whole Blood 136 mg/dL (75-99)
[2020-01-04] MEDS: LEVOTHYROXINE 50 MCG TAB PO SCH (06:36)
[2020-01-04] MEDS: INSULIN DETEMIR (LEVEMIR) 100 UNIT/ML SYR SQ SCH (06:40)
[2020-01-04] MEDS: INSULIN ASPART (NovoLOG) 100 UNIT/ML VIAL SQ SCH ×2 (06:41→12:37)
[2020-01-04 08:43] VITALS: RESP 16
[2020-01-04] MEDS: METOPROLOL SUCCINATE (ER) 25 MG TAB.ER.24H PO SCH (08:44)
[2020-01-04] MEDS: FAMOTIDINE 20 MG TAB PO SCH (08:44)
[2020-01-04] MEDS: SPIRONOLACTONE 25 MG TAB PO SCH (08:44)
[2020-01-04] MEDS ORDERED: metFORMIN 500 MG TAB PO SCH (09:00)
[2020-01-04 09:26] LABS: African American GFR (CKD) >90 (>60 ml/min/1.73 sqM); Anion Gap 4 mmol/L; Basophils # (A) 0.1 k/uL (0-0.2); Basophils % (A) 1 %; Blood Urea Nitrogen 24 mg/dL (9-20); Calcium 7.3 mg/dL (8.4-10.2); Carbon Dioxide 31 mmol/L (22-30); Chloride 97 mmol/L (98-107); Eosinophils # (A) 0.1 k/uL (0-0.7); Eosinophils % (A) 2 %; Glucose 118 mg/dL (74-99); HCT 35.8 % (39.0-53.0); HGB 11.5 gm/dL (13.0-17.5); Hypochromasia Moderate; Lymphocytes % (A) 20 %; MCH 28.4 pg (25.0-35.0); MCV 88.5 fL (80.0-100.0); Mean Platelet Volume 12.1; Monocytes # (A) 0.5 k/uL (0-1.0); Monocytes % (A) 10 %; Neutrophils # (A) 3.2 k/uL (1.3-7.7); Neutrophils % (A) 64 %; Non-African American GFR(CKD) 85 (>60 ml/min/1.73 sqM); Potassium 3.9 mmol/L (3.5-5.1); RBC 4.05 m/uL (4.30-5.90); RDW 14.6 % (11.5-15.5); Sodium 132 mmol/L (137-145)
[2020-01-04 09:31] LABS: Platelet Count 42 k/uL (150-450)
--- NOTE | 2020-01-04 11:40 | P.PN ---
Subjective Progress Note Date: 01/03/20 Principal diagnosis: Worsening shortness of breath secondary to pleural effusion, ascites likely due to underlying liver disease. Patient is 79-year-old male with a known history of hypertension, hyperlipidemia, diabetes type 2 insulin-dependent, hypothyroidism, CHF and prostate cancer diagnosed in 2007 came to ER with complaints of increasing f atigue, shortness of breath and increased abdominal girth. Patient was also having bilateral lower extremity swelling. Patient was recently seen by his senior technical project manager and was started on Lasix 3 to 4 days ago. His leg swelling did improve with Lasix. Patient states that he has been increasingly short of breath even with minimal activity and occasional sharp pains in the chest. Patient was also having dizziness with standing. No syncopal episode. Patient does have cough without sputum production. Denies any fever or chills. No nausea vomiting or diarrhea. No dysuria or hematuria. Denied any other recent illnesses. Patient was taking Lasix and Zaroxolyn at home. Laboratory data showed WBC 5.1, hemoglobin 12.5, platelets 47, INR 1.6, sodium 139, potassium 3.0 and chloride 90, BUN 21 and creatinine 0.83 Lactic acid 4.4 on admission Alk phos 279 Albumin 2.7 BNP 340 AST 58 and ALT 22 Urinalysis negative for infection Chest x-ray showed small effusions and associated atelectasis. Correlate to exclude pneumonia. CT of the abdomen pelvis showed no bowel obstruction. Hepatosplenomegaly with possible fatty infiltration of the liver are underlying hepatocellular disease. Correlate clinically. Cannot exclude infiltrative process or disease in the spleen versus diminished perfusion. Small to moderate amount of pelvic ascites. Small amount of diffuse soft tissue anasarca. Avelina picious large exophytic cystic lesion lower pole right kidney at least Bosniak type III lesion. Surgical referral advised. Subtle nonspecific lytic lesions lytic metastatic disease cannot be excluded particularly given the above #3 finding. 01/02/20 patient is currently sitting in the side of the bed comfortably. Denied any complaints of abdominal pain. Shortness of breath did improve. Patient has been afebrile. Otherwise patient did have ultrasound of the liver yesterday showed findings consistent with hepatocellular disease, possible hepatic steatosis, hepatomegaly. Findings could possibly represent chronic cholecystitis possible holesterolosis. Ultrasound-guided paracentesis was attempted but there was not enough pocket of fluid. Hepatitis panel is negative. Iron studies showed iron level of 16 and saturation of 5.28 Ammonia level is 43 LDH 495 Albumin 2.3 tumor markers including alpha 1 antitrypsin and AFP level not elevated TSH and cortisol within normal limits Ceruloplasmin level is within normal limits. TERRANCE negative. Patient was seen by GI and recommended MRI of the liver. Patient is also getting bone scan due to history of previous prostate cancer. 01/03/2020 Patient is currently sitting on the side of the bed comfortably. Leg swelling is much improved. Patient is being continued on Aldactone 50 mg daily. Bone scan showed soft tissue uptake is normal. There is some mild increased uptake seen in the distal left femur which is intermediate. Uptake in the costovertebral angles is likely due to degenerative changes. No abnormal uptake seen to correlate with the previously described lucent areas within the pelvis. Prostate is not excluded. MRI of the pelvis R distal left femur may be of benefit. Laboratory data showed WBC 5.1, hemoglobin 11.8 and platelets 44,000 INR 1.7 Sodium 131, potassium 3.4, chloride 96, BUN 25 and creatinine 0.78 Ammonia level came back to less than 5 Total bilirubin 2.5, AST 58, ALT 18 and alk phos 268 all women 2.3 Oncology is plan for MRI of the liver. Paracentesis could not be done due to not a fluid to drain. Pulmonary, GI and oncology is on board. Current medications reviewed. Objective - Vital Signs Vital signs: Vital Signs Temp 97.4 F L 01/03/20 08:00 Pulse 71 01/03/20 12:00 Resp 16 01/03/20 16:00 BP 131/71 01/03/20 12:00 Pulse Ox 98 01/03/20 12:00 Intake & Output 01/02/20 01/03/20 01/03/20 18:59 06:59 18:59 Intake Total 700 680 840 Balance 700 680 840 Weight 92.3 kg 89 kg Intake: Intake, IV Titration 400 200 Amount Sodium Chloride 0.9% 500 400 200 ml 500 ml @ 50 mls/hr IV .Q10H [facility] Rx#:[id number] Oral 300 480 840 Other: Voiding Method Toilet Toilet # Voids 2 2 - Exam PHYSICAL EXAMINATION: Patient is lying in the bed comfortably, no acute distress, awake alert and oriented.. HEENT: Normocephalic. Neck is supple. Pupils reactive. Nostrils clear. Oral cavity is moist. Ears reveal no drainage. Neck reveals no JVD, carotid bruits, or thyromegaly. CHEST EXAMINATION: Trachea is central. Symmetrical expansion.Bibasilar diminis hed air entry. Lung ribera clear to auscultation and percussion. CARDIAC: Normal S1, S2 with no gallops. No murmurs ABDOMEN: Soft.Distended with ascites. Bowel sounds normal. organomegaly Cannot be assessed. . No abdominal bruits. Extremities: reveal no edema. No clubbing or cyanosis Neurologically awake, alert, oriented x3 with well-coordinated movements. No focal deficits noted Skin: No rash or skin lesions. Psychiatric: Coperative. Nonsuicidal Musculoskeletal: No joint swelling or deformity. Normal range of motion. - Labs CBC & Chem 7: 01/04/20 07:56 01/04/20 07:56 Labs: Abnormal Lab Results - Last 24 Hours (Table) 01/02/20 01/02/20 01/02/20 Range/Units 05:31 16:52 20:29 RBC (4.30-5.90) m/uL Hgb (13.0-17.5) gm/dL Hct (39.0-53.0) % Plt Count (150-450) k/uL PT (9.0-12.0) sec INR (<1.2) APTT (22.0-30.0) sec Sodium (137-145) mmol/L Potassium (3.5-5.1) mmol/L Chloride (98-107) mmol/L BUN (9-20) mg/dL Glucose (74-99) mg/dL POC Glucose (mg/dL) 211 H 188 H (75-99) mg/dL Calcium (8.4-10.2) mg/dL Total Bilirubin (0.2-1.3) mg/dL Alkaline Phosphatase (38-126) U/L Total Protein (6.3-8.2) g/dL Albumin (3.5-5.0) g/dL Albumin (PEP) 2.19 L (3.80-4.90) g/dL Cddfw-0-Iwsruzinv 0.41 L (0.60-1.00) g/dL 01/03/20 01/03/20 01/03/20 Range/Units 05:45 05:45 05:45 RBC 4.11 L (4.30-5.90) m/uL Hgb 11.8 L (13.0-17.5) gm/dL Hct 36.2 L (39.0-53.0) % Plt Count 44 L (150-450) k/uL PT 16.6 H (9.0-12.0) sec INR 1.7 H (<1.2) APTT 35.8 H (22.0-30.0) sec Sodium 131 L (137-145) mmol/L Potassium 3.4 L (3.5-5.1) mmol/L Chloride 96 L (98-107) mmol/L BUN 25 H (9-20) mg/dL Glucose 129 H (74-99) mg/dL POC Glucose (mg/dL) (75-99) mg/dL Calcium 7.2 L (8.4-10.2) mg/dL Total Bilirubin 2.5 H (0.2-1.3) mg/dL Alkaline Phosphatase 268 H (38-126) U/L Total Protein 5.1 L (6.3-8.2) g/dL Albumin 2.3 L (3.5-5.0) g/dL Albumin (PEP) (3.80-4.90) g/dL Tvgux-7-Navwcmzte (0.60-1.00) g/dL 01/03/20 01/03/20 Range/Units 06:07 12:03 RBC (4.30-5.90) m/uL Hgb (13.0-17.5) gm/dL Hct (39.0-53.0) % Plt Count (150-450) k/uL PT (9.0-12.0) sec INR (<1.2) APTT (22.0-30.0) sec Sodium (137-145) mmol/L Potassium (3.5-5.1) mmol/L Chloride (98-107) mmol/L BUN (9-20) mg/dL Glucose (74-99) mg/dL POC Glucose (mg/dL) 140 H 198 H (75-99) mg/dL Calcium (8.4-10.2) mg/dL Total Bilirubin (0.2-1.3) mg/dL Alkaline Phosphatase (38-126) U/L Total Protein (6.3-8.2) g/dL Albumin (3.5-5.0) g/dL Albumin (PEP) (3.80-4.90) g/dL Pqrtr-1-Kgfkvvbrn (0.60-1.00) g/dL Assessment and Plan Assessment: Worsening shortness of breath secondary to pleural effusion, ascites likely due to underlying liver disease.improving now. Hepatosplenomegaly with fatty infiltration of the liver. Small to moderate pelvic ascites. ultrasound guidedparacentesiswas attempted but not enough fluid. Large cystic lesion lower pole of the right kidney Nonspecific lytic metastatic lesions on the CT History of prostate cancer diagnosed in 2007 Hyponatremia likely hypovolemic Thrombocytopenia secondary to liver disease. Hypertension Hyperlipidemia Diabetes type 2 insulin-dependent History of thyroid cancer status post surgical resection and currently on thyroid replacement. Coagulopathy secondary to liver disease Hypokalemia HX of smoking. Plan: Patient will be continued gently IV hydration and replace electrolytes. Continue with insulin dosing and sliding scale. GI prophylaxis. Gastroenterology service was consulted due to hepatocellular disease. Urology was consulted due to right lower pole cystic mass for which outpatient work-up was indicated. Monitor electrolytes and follow-up closely. Prognosis guarded. Discussed with his family at bedside in detail. Patient will need to follow with liver specialist as an outpatient... Time with Patient: Greater than 30
[2020-01-04 11:55] VITALS: BP 127/69; PULSE 66
[2020-01-04 12:16] LABS: Glucose,Whole Blood 202 mg/dL (75-99)
--- NOTE | 2020-01-04 13:53 | P.PN ---
Subjective Progress Note Date: 01/04/20 Principal diagnosis: Renal mass and ascites MRI ordered faxes to [facility] today, Discussed case with Daughter in Law. Plan to await MRI of Abdomen and if needed will set up for further diagnostics outpatient. Objective - Vital Signs Vital signs: Vital Signs Temp 97.9 F 01/04/20 04:19 Pulse 66 01/04/20 11:54 Resp 16 01/04/20 11:54 BP 127/69 01/04/20 11:54 Pulse Ox 98 01/04/20 11:54 Intake & Output 01/03/20 01/04/20 01/04/20 18:59 06:59 18:59 Intake Total 1080 240 236 Balance 1080 240 236 Weight 87 kg Intake: Oral 1080 240 236 Other: Voiding Method Toilet # Voids 1 1 1 # Bowel Movements 1 - Exam - Constitutional General appearance: cooperative, mild distress - EENT Eyes: EOMI, PERRLA, dentition normal ENT: hard of hearing, NA/AT, normal oropharynx - Neck Neck: normal ROM - Respiratory Respiratory: bilateral: diminished (mild increased effort) - Cardiovascular Rhythm: irregularly irregular leg Peripheral Edema: bilateral: 1+ - Gastrointestinal Abdominal Ascites noted General gastrointestinal: distended, soft, tenderness - Neurologic Neurologic: CNII-XII intact - Musculoskeletal Musculoskeletal: generalized weakness, strength equal bilaterally - Psychiatric Psychiatric: A&O x's 3, appropriate affect, intact judgment & insight - Labs CBC & Chem 7: 01/04/20 07:56 01/04/20 07:56 Labs: Abnormal Lab Results - Last 24 Hours (Table) 01/02/20 01/03/20 01/03/20 Range/Units 05:31 05:45 16:41 RBC (4.30-5.90) m/uL Hgb (13.0-17.5) gm/dL Hct (39.0-53.0) % Plt Count (150-450) k/uL Sodium (137-145) mmol/L Chloride (98-107) mmol/L Carbon Dioxide (22-30) mmol/L BUN (9-20) mg/dL Glucose (74-99) mg/dL POC Glucose (mg/dL) 207 H (75-99) mg/dL Calcium (8.4-10.2) mg/dL Albumin (PEP) 2.19 L (3.80-4.90) g/dL Sfutt-5-Vezlavfaj 0.41 L (0.60-1.00) g/dL Vitamin B12 1194.0 H (200.0-944.0) pg/mL 01/03/20 01/04/20 01/04/20 Range/Units 20:09 06:18 07:56 RBC 4.05 L (4.30-5.90) m/uL Hgb 11.5 L (13.0-17.5) gm/dL Hct 35.8 L (39.0-53.0) % Plt Count 42 L (150-450) k/uL Sodium (137-145) mmol/L Chloride (98-107) mmol/L Carbon Dioxide (22-30) mmol/L BUN (9-20) mg/dL Glucose (74-99) mg/dL POC Glucose (mg/dL) 178 H 136 H (75-99) mg/dL Calcium (8.4-10.2) mg/dL Albumin (PEP) (3.80-4.90) g/dL Chigx-5-Ppwexixqy (0.60-1.00) g/dL Vitamin B12 (200.0-944.0) pg/mL 01/04/20 01/04/20 Range/Units 07:56 12:14 RBC (4.30-5.90) m/uL Hgb (13.0-17.5) gm/dL Hct (39.0-53.0) % Plt Count (150-450) k/uL Sodium 132 L (137-145) mmol/L Chloride 97 L (98-107) mmol/L Carbon Dioxide 31 H (22-30) mmol/L BUN 24 H (9-20) mg/dL Glucose 118 H (74-99) mg/dL POC Glucose (mg/dL) 202 H (75-99) mg/dL Calcium 7.3 L (8.4-10.2) mg/dL Albumin (PEP) (3.80-4.90) g/dL Qjpbb-4-Tvmepkbxk (0.60-1.00) g/dL Vitamin B12 (200.0-944.0) pg/mL Assessment and Plan Plan: Assessment and Recommendations: 1. New Renal Mass: Cystic Appearing - Urology following - Intervention after stabilized and discharged 2. Concerning lesion in bone: - reviewed Bone scan. Will obtain MRI of pelvis at same time of Abdomen (liver) to further evaluate 3. Abdominal Ascites: - Paracentesis - if possible with minimal fluid sample for albumin and cytology (Per IR no fluid pocket available for fluid sample, will ask to reassess) - Underlying liver disease in differential with imaging revealing hepatomegaly 4. Liver Lesion: - Check AFP, pending 5. Thrombocytopenia:worsening - Secondary to likely underlying liver disease and Normocytic anemia - component of iron def - will await for iron supp (can be done PO and if needed IV as outpatient) - Platelets less than 50K - Hold all Anticoagulation and NSAIDS 6. 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 Hx: Prostate cancer: Likely not related to current picture PLan: - NOrmal AFP most likely ascites and liver lesions related to underlying liver disease - MRI of liver to further evaluate lesions in liver and pelvis is fax[facility] and appointment withDr. RIVERA Made for 2 weeks to review
[2020-01-04 14:35] VITALS: BMI 27.5
[2020-01-06] MEDS ORDERED: ERGOCALCIFEROL 50,000 UNIT CAP PO SCH (09:00)
== END 2020-01-04 16:04 | disposition home or self-care (01) | DRG 699 ==
LOC: EC 14:06 → 3SCARD 18:59
PROVIDERS: ADMIT Hospitalist; ATTEND Hospitalist
DX: N28.89 Other specified disorders of kidney and ureter (principal); E87.1 Hypo-osmolality and hyponatremia; J91.8 Pleural effusion in other conditions classified elsewhere; C79.51 Secondary malignant neoplasm of bone; D68.4 Acquired coagulation factor deficiency; R18.8 Other ascites; I50.32 Chronic diastolic (congestive) heart failure; J98.11 Atelectasis; K76.9 Liver disease, unspecified; R16.2 Hepatomegaly with splenomegaly, not elsewhere classified; K81.1 Chronic cholecystitis; C61 Malignant neoplasm of prostate; D69.59 Other secondary thrombocytopenia; I11.0 Hypertensive heart disease with heart failure; K76.0 Fatty (change of) liver, not elsewhere classified; Z79.4 Long term (current) use of insulin; E11.9 Type 2 diabetes mellitus without complications; F10.21 Alcohol dependence, in remission; Z20.828 Contact with and (suspected) exposure to other viral communicable diseases; E86.1 Hypovolemia; E86.0 Dehydration; E87.6 Hypokalemia; T50.2X5A Adverse effect of carbonic-anhydrase inhibitors, benzothiadiazides and other diuretics, initial encounter; D50.0 Iron deficiency anemia secondary to blood loss (chronic); I07.1 Rheumatic tricuspid insufficiency; E78.5 Hyperlipidemia, unspecified; H91.90 Unspecified hearing loss, unspecified ear; E89.0 Postprocedural hypothyroidism; Z79.890 Hormone replacement therapy; Z79.899 Other long term (current) drug therapy; Z87.891 Personal history of nicotine dependence; Z85.850 Personal history of malignant neoplasm of thyroid; Z88.0 Allergy status to penicillin
CPT/HCPCS: 36415; 71046; 71260; 74177; 76705; 78306; 80048; 80053; 80074; 81001; 82103; 82105; 82140; 82390; 82533; 82607; 82728; 82746; 83036; 83516; 83540; 83550; 83605; 83615; 83735; 83880; 83921; 83930; 84153; 84154; 84165; 84443; 84484; 85025; 85045; 85610; 85730; 86038; 86376; 86704; 86706; 86708; 86803; 93005; 96365; 96366; 96375; 99285

== ENCOUNTER 2020-01-15 15:14 | Inpatient (IN) | payer MEDICARE, BC ==
--- NOTE | 2020-01-15 17:09 | ED ---
General Adult HPI - General Chief complaint: Weakness Stated complaint: Weakness Time Seen by Provider: 01/15/20 16:12 Source: patient, RN notes reviewed Mode of arrival: wheelchair Limitations: no limitations, physical limitation - History of Present Illness Initial comments: Patient is a pleasant 79-year-old male presenting to the emergency Department with fatigue and general weakness. Patient was discharged from the hospital around 10 days ago. Patient started getting worse again around 4 days ago. Patient has generalized fatigue and weakness. Patient is able to walk to the bathroom using the puckett to help and that is around the limit of his exertion. Patient does have some shortness of breath. Patient is having increased leg and abdominal swelling. Symptoms are felt to be from patient's liver disease. 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 - Related Data Home Medications Medication Instructions Recorded Confirmed Atorvastatin Calcium [Lipitor] 40 mg PO HS 12/31/19 12/31/19 Ergocalciferol (Vitamin D2) 50,000 unit PO SAN 12/31/19 12/31/19 [Drisdol] Levocetirizine Dihydrochloride 5 mg PO HS PRN 12/31/19 12/31/19 [Xyzal] Levothyroxine Sodium [Synthroid] 175 mcg PO MOTUWETHFRSA 12/31/19 12/31/19 Metoprolol Succinate [Toprol XL] 25 mg PO DAILY 12/31/19 12/31/19 metFORMIN HCL 1,000 mg PO DAILY 12/31/19 12/31/19 Previous Rx's Medication Instructions Recorded Insulin Glargine,Hum.rec.anlog 10 unit SQ DAILY #1 pen 01/04/20 [Lantus Solostar] Spironolactone [Aldactone] 50 mg PO DAILY #60 tab 01/04/20 Allergies Allergy/AdvReac Type Severity Reaction Status Date / Time Penicillins Allergy Swelling Verified 01/15/20 16:09 Review of Systems ROS Statement: Those systems with pertinent positive or pertinent negative responses have been documented in the HPI. ROS Other: All systems not noted in ROS Statement are negative. Constitutional: Denies: fever Eyes: Denies: eye pain ENT: Denies: ear pain Respiratory: Reports: dyspnea (With exertion). Denies: cough Cardiovascular: Denies: chest pain Endocrine: Reports: fatigue Gastrointestinal: Reports: as per HPI (Abdominal distention) Genitourinary: Denies: dysuria Musculoskeletal: Denies: back pain Skin: Denies: rash Neurological: Denies: headache, confusion Past Medical History Past Medical History: Heart Failure, Diabetes Mellitus, Hyperlipidemia, Hypertension, Liver Disease History of Any Multi-Drug Resistant Organisms: None Reported Past Surgical History: Orthopedic Surgery Additional Past Surgical History / Comment(s): Thyroid removal and arthroscopy left knee Past Psychological History: No Psychological Hx Reported Smoking Status: Former smoker Past Alcohol Use History: Occasional Past Drug Use History: None Reported General Exam Limitations: no limitations, physical limitation General appearance: alert, in no apparent distress Head exam: Present: normocephalic Eye exam: Present: normal appearance, PERRL, EOMI ENT exam: Present: normal oropharynx Neck exam: Present: normal inspection Respiratory exam: Present: normal lung sounds bilaterally Cardiovascular Exam: Present: regular rate, normal rhythm GI/Abdominal exam: Present: soft, distended (Moderate distention/ascites) Extremities exam: Present: pedal edema (+3 bilateral). Absent: calf tenderness Neurological exam: Present: alert Psychiatric exam: Present: normal affect, normal mood Skin exam: Present: normal color Course Vital Signs 01/15/20 16:05 Temperature 97.9 F Pulse Rate 104 H Respiratory 24 Rate Blood Pressure 124/77 O2 Sat by Pulse 99 Oximetry EKG Findings - EKG Comments: EKG Findings:: Sinus tachycardia 102. SC 180. QRS 80. QT 352. QTC 458. Left axis. Left anterior fascicular block. Septal Q waves. Inferior Q waves. No acute ST change. Medical Decision Making - Medical Decision Making Patient reevaluated. Patient and family updated. Case was discussed with Dr. Cohen would like patient admitted again to Dr. Enamorado's group. Case discussed with Dr. Callaway, who will admit for Dr. Enamorado. Consults will replace with GI and hematology. Case discussed with practitioner Beatriz, with Dr. Callaway, who will admit. - Lab Data Result diagrams: 01/15/20 17:10 01/15/20 17:10 Lab Results 01/15/20 01/15/20 01/15/20 Range/Units 17:10 17:10 17:10 WBC 4.6 (3.8-10.6) k/uL RBC 4.12 L (4.30-5.90) m/uL Hgb 11.6 L (13.0-17.5) gm/dL Hct 35.8 L (39.0-53.0) % MCV 86.9 (80.0-100.0) fL MCH 28.2 (25.0-35.0) pg MCHC 32.4 (31.0-37.0) g/dL RDW 14.7 (11.5-15.5) % Plt Count 37 L (150-450) k/uL Neutrophils % 75 % Lymphocytes % 15 % Monocytes % 7 % Eosinophils % 0 % Basophils % 0 % Neutrophils # 3.4 (1.3-7.7) k/uL Lymphocytes # 0.7 L (1.0-4.8) k/uL Monocytes # 0.3 (0-1.0) k/uL Eosinophils # 0.0 (0-0.7) k/uL Basophils # 0.0 (0-0.2) k/uL Manual Slide Review Performed Large Platelets Present Hypochromasia Marked Poikilocytosis Slight Poikilocytosis (manual Present PT 21.2 H (9.0-12.0) sec INR 2.2 H (<1.2) APTT 36.1 H (22.0-30.0) sec Sodium 126 L (137-145) mmol/L Potassium 4.6 (3.5-5.1) mmol/L Chloride 96 L (98-107) mmol/L Carbon Dioxide 21 L (22-30) mmol/L Anion Gap 9 mmol/L BUN 30 H (9-20) mg/dL Creatinine 0.89 (0.66-1.25) mg/dL Est GFR (CKD-EPI)AfAm >90 (>60 ml/min/1.73 sqM) Est GFR (CKD-EPI)NonAf 82 (>60 ml/min/1.73 sqM) Glucose 251 H (74-99) mg/dL Calcium 7.5 L (8.4-10.2) mg/dL Magnesium 2.1 (1.6-2.3) mg/dL Total Bilirubin 3.6 H (0.2-1.3) mg/dL AST 99 H (17-59) U/L ALT 38 (4-49) U/L Alkaline Phosphatase 265 H (38-126) U/L Creatine Kinase 43 L (55-170) U/L Troponin I (0.000-0.034) ng/mL NT-Pro-B Natriuret Pep pg/mL Total Protein 5.2 L (6.3-8.2) g/dL Albumin 2.3 L (3.5-5.0) g/dL 01/15/20 01/15/20 Range/Units 17:10 17:10 WBC (3.8-10.6) k/uL RBC (4.30-5.90) m/uL Hgb (13.0-17.5) gm/dL Hct (39.0-53.0) % MCV (80.0-100.0) fL MCH (25.0-35.0) pg MCHC (31.0-37.0) g/dL RDW (11.5-15.5) % Plt Count (150-450) k/uL Neutrophils % % Lymphocytes % % Monocytes % % Eosinophils % % Basophils % % Neutrophils # (1.3-7.7) k/uL Lymphocytes # (1.0-4.8) k/uL Monocytes # (0-1.0) k/uL Eosinophils # (0-0.7) k/uL Basophils # (0-0.2) k/uL Manual Slide Review Large Platelets Hypochromasia Poikilocytosis Poikilocytosis (manual PT (9.0-12.0) sec INR (<1.2) APTT (22.0-30.0) sec Sodium (137-145) mmol/L Potassium (3.5-5.1) mmol/L Chloride (98-107) mmol/L Carbon Dioxide (22-30) mmol/L Anion Gap mmol/L BUN (9-20) mg/dL Creatinine (0.66-1.25) mg/dL Est GFR (CKD-EPI)AfAm (>60 ml/min/1.73 sqM) Est GFR (CKD-EPI)NonAf (>60 ml/min/1.73 sqM) Glucose (74-99) mg/dL Calcium (8.4-10.2) mg/dL Magnesium (1.6-2.3) mg/dL Total Bilirubin (0.2-1.3) mg/dL AST (17-59) U/L ALT (4-49) U/L Alkaline Phosphatase (38-126) U/L Creatine Kinase (55-170) U/L Troponin I <0.012 (0.000-0.034) ng/mL NT-Pro-B Natriuret Pep 480 pg/mL Total Protein (6.3-8.2) g/dL Albumin (3.5-5.0) g/dL - Radiology Data Radiology results: image reviewed Disposition Clinical Impression: Hyponatremia, Ascites, General weakness Disposition: ADMITTED IP TO THIS HOSP Is patient prescribed a controlled substance at d/c from ED?: No Decision Time: 18:00
[2020-01-15 17:31] LABS: INR 2.2 (<1.2); Prothrombin Time 21.2 sec (9.0-12.0)
[2020-01-15 17:32] LABS: Partial Thromboplastin Time 36.1 sec (22.0-30.0)
[2020-01-15 17:36] LABS: AST 99 U/L (17-59); African American GFR (CKD) >90 (>60 ml/min/1.73 sqM); Albumin 2.3 g/dL (3.5-5.0); Alkaline Phosphatase 265 U/L (38-126); Anion Gap 9 mmol/L; Basophils % (A) 0 %; Blood Urea Nitrogen 30 mg/dL (9-20); Calcium 7.5 mg/dL (8.4-10.2); Carbon Dioxide 21 mmol/L (22-30); Chloride 96 mmol/L (98-107); Creatine Kinase 43 U/L (55-170); Eosinophils % (A) 0 %; Glucose 251 mg/dL (74-99); HCT 35.8 % (39.0-53.0); HGB 11.6 gm/dL (13.0-17.5); Hypochromasia Marked; Lymphocytes # (A) 0.7 k/uL (1.0-4.8); Lymphocytes % (A) 15 %; MCH 28.2 pg (25.0-35.0); MCHC 32.4 g/dL (31.0-37.0); MCV 86.9 fL (80.0-100.0); Magnesium 2.1 mg/dL (1.6-2.3); Mean Platelet Volume 12.3; Monocytes # (A) 0.3 k/uL (0-1.0); Monocytes % (A) 7 %; Neutrophils # (A) 3.4 k/uL (1.3-7.7); Neutrophils % (A) 75 %; Non-African American GFR(CKD) 82 (>60 ml/min/1.73 sqM); Platelet Count 37 k/uL (150-450); Poikilocytosis Slight; Potassium 4.6 mmol/L (3.5-5.1); RBC 4.12 m/uL (4.30-5.90); RDW 14.7 % (11.5-15.5); Sodium 126 mmol/L (137-145); Total Bilirubin 3.6 mg/dL (0.2-1.3); Total Protein 5.2 g/dL (6.3-8.2); WBC 4.6 k/uL (3.8-10.6)
[2020-01-15 17:43] LABS: ALT 38 U/L (4-49)
[2020-01-15 17:47] LABS: Large Platelets Present
[2020-01-15 17:48] LABS: Poikilocytosis (M) Present
[2020-01-15] MEDS ORDERED: NALOXONE 0.4 MG/ML 1 ML VIAL IV PRN (18:00)
--- NOTE | 2020-01-15 18:39 | XR ---
EXAMINATION TYPE: XR chest 2V DATE OF EXAM: 01/15/2020 CLINICAL HISTORY: Difficulty breathing TECHNIQUE: Frontal and lateral views of the chest are obtained. COMPARISON: Chest radiograph 12/31/2019 FINDINGS: The cardiomediastinal silhouette is within normal limits for size. Pulmonary vasculature i s normal. There is no focal air space opacity or pneumothorax seen. Small bilateral pleural effusions redemonstrated. The osseous structures are intact. IMPRESSION: Redemonstrated small bilateral pleural effusions.
[2020-01-15 20:47] LABS: Glucose,Whole Blood 206 mg/dL (75-99)
[2020-01-15] MEDS: SODIUM CHLORIDE 0.9% 1,000 ML IV SCH (20:52)
[2020-01-16 07:04] LABS: Glucose,Whole Blood 163 mg/dL (75-99)
[2020-01-16 08:19] LABS: ALT 36 U/L (4-49); AST 94 U/L (17-59); African American GFR (CKD) >90 (>60 ml/min/1.73 sqM); Alkaline Phosphatase 236 U/L (38-126); Anion Gap 4 mmol/L; Blood Urea Nitrogen 31 mg/dL (9-20); Calcium 7.3 mg/dL (8.4-10.2); Carbon Dioxide 26 mmol/L (22-30); Chloride 99 mmol/L (98-107); Glucose 142 mg/dL (74-99); Non-African American GFR(CKD) 84 (>60 ml/min/1.73 sqM); Potassium 4.7 mmol/L (3.5-5.1); Sodium 129 mmol/L (137-145); Total Bilirubin 3.4 mg/dL (0.2-1.3); Total Protein 4.8 g/dL (6.3-8.2)
[2020-01-16 08:38] LABS: Basophils % (A) 1 %; Eosinophils % (A) 0 %; HCT 35.8 % (39.0-53.0); HGB 11.1 gm/dL (13.0-17.5); Hypochromasia Marked; Lymphocytes # (A) 1.1 k/uL (1.0-4.8); Lymphocytes % (A) 18 %; MCH 26.9 pg (25.0-35.0); MCV 86.9 fL (80.0-100.0); Mean Platelet Volume 12.6; Monocytes # (A) 0.4 k/uL (0-1.0); Monocytes % (A) 6 %; Neutrophils # (A) 4.5 k/uL (1.3-7.7); Neutrophils % (A) 72 %; Poikilocytosis Slight; RBC 4.12 m/uL (4.30-5.90); WBC 6.2 k/uL (3.8-10.6)
[2020-01-16] MEDS ORDERED: PANTOPRAZOLE 40 MG/10 ML VIAL IV SCH (09:00)
[2020-01-16 09:17] LABS: Platelet Count 31 k/uL (150-450)
[2020-01-16 09:19] LABS: Crenated RBC Present
[2020-01-16 09:20] LABS: Polychromasia Present; Target Cells Present
[2020-01-16] MEDS ORDERED: PHYTONADIONE 5 MG in SODIUM CHLORIDE 0.9% 50 ML IVPB STA (09:58)
--- NOTE | 2020-01-16 10:06 | P.CONS ---
History of Present Illness - Reason for Consult Consult date: 01/16/20 thrombocytopenia, MRI review Requesting physician: Kris Mott - Chief Complaint weakness - History of Present Illness Mr. Barcenas is a very pleasant 79-year-old male patient with been asked to see in regards to thrombocytopenia as well as MRI review. Patient is ad mitted with complaints of persistent weakness, moderate to severe, appetite is fair to poor, he denies fevers, painful swallowing, he is short of breath with ild exertion, abdomen is distended but not painful, no nausea or vomiting, denies acute changes in bowel or bladder habits, bilateral lower extremities are swollen and uncomfortable, denies bleeding, rashes, he does bruise very easily, denies overt bleeding. Review of Systems 14 point ROS is negative except as stated in HPI Past Medical History Past Medical History: Heart Failure, Diabetes Mellitus, Hyperlipidemia, Hypertension, Liver Disease History of Any Multi-Drug Resistant Organisms: None Reported Past Surgical History: Orthopedic Surgery Additional Past Surgical History / Comment(s): Thyroid removal and arthroscopy left knee Past Psychological History: No Psychological Hx Reported Smoking Status: Former smoker Past Alcohol Use History: Occasional Past Drug Use History: None Reported - Past Family History Mother Family Medical History: No Reported History Medications and Allergies Home Medications Medication Instructions Recorded Confirmed Type Atorvastatin Calcium [Lipitor] 40 mg PO HS 12/31/19 01/15/20 History Ergocalciferol (Vitamin D2) 50,000 unit PO SAN 12/31/19 01/15/20 History [Drisdol] Levocetirizine Dihydrochloride 5 mg PO HS PRN 12/31/19 01/15/20 History [Xyzal] Levothyroxine Sodium [Synthroid] 175 mcg PO MOTUWETHFRSA 12/31/19 01/15/20 History Metoprolol Succinate [Toprol XL] 25 mg PO DAILY 12/31/19 01/15/20 History metFORMIN HCL 1,000 mg PO DAILY 12/31/19 01/15/20 History Insulin Glargine,Hum.rec.anlog 10 unit SQ DAILY #1 pen 01/04/20 01/15/20 Rx [Lantus Solostar] Spironolactone [Aldactone] 50 mg PO DAILY #60 tab 01/04/20 01/15/20 Rx Allergies Allergy/AdvReac Type Severity Reaction Status Date / Time Penicillins Allergy Swelling Verified 01/15/20 19:24 Physical Exam Vitals: Vital Signs Temp Pulse Pulse Resp BP BP Pulse Ox 01/16/20 04:35 97.7 F 99 12 129/73 97 01/16/20 00:00 105 H 18 01/15/20 20:35 97.4 F L 107 H 14 127/81 97 01/15/20 19:10 96 18 136/87 98 01/15/20 16:05 97.9 F 104 H 24 124/77 99 Intake and Output 01/15/20 01/16/20 01/16/20 22:59 06:59 14:59 Intake Total 240 720 Balance 240 720 Intake: Intake, IV Titration 240 600 Amount Sodium Chloride 0.9% 1, 240 600 000 ml @ 75 mls/hr IV . [id number] SHAUN Rx#:[id number] Oral 120 Other: # Voids 1 1 Weight 90.718 kg - Constitutional General appearance: average body habitus, cooperative, no acute distress - EENT Eyes: anicteric sclerae, EOMI ENT: hard of hearing, normal oropharynx - Neck Neck: lymphadenopathy (2 lymph nodes palpated the left axilla, approximately 1 cm, soft, mobile, rubbery consistency) - Respiratory Respiratory: bilateral: diminished (Weak inspiratory effort) - Cardiovascular Rhythm: regular Heart sounds: normal: S1, S2 leg Peripheral Edema: bilateral: 2+, Pitting - Gastrointestinal Fluid wave test positive General gastrointestinal: distended, normal bowel sounds, soft - Integumentary Multiple bruises on the upper extremities Integumentary: pale - Neurologic Neurologic: CNII-XII intact - Musculoskeletal Musculoskeletal: generalized weakness - Psychiatric Psychiatric: A&O x's 3, appropriate affect, intact judgment & insight Results CBC & Chem 7: 01/16/20 07:18 01/16/20 07:18 Labs: Abnormal Lab Results - Last 24 Hours (Table) 01/15/20 01/15/20 01/15/20 Range/Units 17:10 17:10 17:10 RBC 4.12 L (4.30-5.90) m/uL Hgb 11.6 L (13.0-17.5) gm/dL Hct 35.8 L (39.0-53.0) % Plt Count 37 L (150-450) k/uL Lymphocytes # 0.7 L (1.0-4.8) k/uL PT 21.2 H (9.0-12.0) sec INR 2.2 H (<1.2) APTT 36.1 H (22.0-30.0) sec Sodium 126 L (137-145) mmol/L Chloride 96 L (98-107) mmol/L Carbon Dioxide 21 L (22-30) mmol/L BUN 30 H (9-20) mg/dL Glucose 251 H (74-99) mg/dL POC Glucose (mg/dL) (75-99) mg/dL Calcium 7.5 L (8.4-10.2) mg/dL Total Bilirubin 3.6 H (0.2-1.3) mg/dL AST 99 H (17-59) U/L Alkaline Phosphatase 265 H (38-126) U/L Creatine Kinase 43 L (55-170) U/L Total Protein 5.2 L (6.3-8.2) g/dL Albumin 2.3 L (3.5-5.0) g/dL 01/15/20 01/16/20 01/16/20 Range/Units 20:44 06:52 07:18 RBC 4.12 L (4.30-5.90) m/uL Hgb 11.1 L (13.0-17.5) gm/dL Hct 35.8 L (39.0-53.0) % Plt Count 31 L (150-450) k/uL Lymphocytes # (1.0-4.8) k/uL PT (9.0-12.0) sec INR (<1.2) APTT (22.0-30.0) sec Sodium (137-145) mmol/L Chloride (98-107) mmol/L Carbon Dioxide (22-30) mmol/L BUN (9-20) mg/dL Glucose (74-99) mg/dL POC Glucose (mg/dL) 206 H 163 H (75-99) mg/dL Calcium (8.4-10.2) mg/dL Total Bilirubin (0.2-1.3) mg/dL AST (17-59) U/L Alkaline Phosphatase (38-126) U/L Creatine Kinase (55-170) U/L Total Protein (6.3-8.2) g/dL Albumin (3.5-5.0) g/dL 01/16/20 Range/Units 07:18 RBC (4.30-5.90) m/uL Hgb (13.0-17.5) gm/dL Hct (39.0-53.0) % Plt Count (150-450) k/uL Lymphocytes # (1.0-4.8) k/uL PT (9.0-12.0) sec INR (<1.2) APTT (22.0-30.0) sec Sodium 129 L (137-145) mmol/L Chloride (98-107) mmol/L Carbon Dioxide (22-30) mmol/L BUN 31 H (9-20) mg/dL Glucose 142 H (74-99) mg/dL POC Glucose (mg/dL) (75-99) mg/dL Calcium 7.3 L (8.4-10.2) mg/dL Total Bilirubin 3.4 H (0.2-1.3) mg/dL AST 94 H (17-59) U/L Alkaline Phosphatase 236 H (38-126) U/L Creatine Kinase (55-170) U/L Total Protein 4.8 L (6.3-8.2) g/dL Albumin 2.0 L (3.5-5.0) g/dL MRI - abdomen: report reviewed Assessment and Plan (1) Ascites Current Visit: Yes Status: Acute Priority: High Code(s): R18.8 - OTHER ASCITES SNOMED Code(s): 716752462 (2) Elevated liver enzymes Current Visit: Yes Status: Acute Priority: High Code(s): R74.8 - ABNORMAL LEVELS OF OTHER SERUM ENZYMES SNOMED Code(s): 867872500 (3) Right kidney mass Current Visit: Yes Status: Acute Priority: High Code(s): N28.89 - OTHER SPECIFIED DISORDERS OF KIDNEY AND URETER SNOMED Code(s): 665084816 Plan: Dr. Song reviewed the case of the patient. He will be contacting the patient's daughter to review the case as well. MRI of the liver was reviewed, no masses, diffuse infiltrate look to the liver, most consistent with cirrhosis. AFP was normal. Recommendation is for diagnostic paracentesis to confirm chronic liver disease versus a malignancy. This is been ordered, additional studies on the fluid requested. There is a cystic mass on the kidney that has a solid component to it. Cons ulted Dr. Foster so that plan for either follow-up, further imaging or biopsies can be planned. There are 2 lymph nodes in the left axilla, these are called out on the computed tomography scan, ultrasound to further evaluate ordered. Otherwise, patient has no evidence of malignancy, pending completion of the above workup. Doctor attests: I performed a history and physical examination of this patient, developed impression and plan of care. Discussed with dictator. I agree with dictators note, documented as a scribe.
--- NOTE | 2020-01-16 10:18 | US ---
EXAMINATION TYPE: US abdomen limited DATE OF EXAM: 01/16/2020 COMPARISON: CLINICAL HISTORY: assess for fluid pocket. All four quadrants scanned. Trace amount of ascites visualized in RUQ adjacent to liver. The liver i s markedly heterogeneous in appearance. IMPRESSION: Minimal ascites, limited scan. Consider hepatocellular disease.
[2020-01-16] MEDS ORDERED: METOPROLOL SUCCINATE (ER) 25 MG TAB.ER.24H PO SCH (10:30)
[2020-01-16] MEDS ORDERED: LEVOTHYROXINE 88 MCG TAB PO SCH (10:30)
[2020-01-16] MEDS ORDERED: INSULIN DETEMIR (LEVEMIR) 100 UNIT/ML SYR SQ SCH (10:45)
[2020-01-16 11:32] LABS: Glucose,Whole Blood 220 mg/dL (75-99)
[2020-01-16] MEDS: INSULIN ASPART (NovoLOG) 100 UNIT/ML VIAL SQ SCH ×3 (12:42→20:38)
--- NOTE | 2020-01-16 13:16 | US ---
EXAMINATION TYPE: US axilla LT DATE OF EXAM: 01/16/2020 COMPARISON: NONE CLINICAL HISTORY: eval palpable LN. Palpable left axilla lymph nodes Left axilla: multiple hypoechoic lymph nodes seen with largest measuring 1.6 x 1.1 x 1.4cm IMPRESSION: Left axillary adenopathy as seen CT.
--- NOTE | 2020-01-16 16:41 | CONS ---
CONSULTATION PULMONARY/CRITICAL CARE CONSULTATION: DATE OF SERVICE: 01/16/2020 REASON FOR CONSULTATION: Weakness. This is a 79-year-old gentleman who was admitted on 01/14. The patient came in through the emergency room. He presented to the emergency department with fatigue and weakness. He was discharged from the hospital recently. I saw him in the office last week. I suspect he has underlying alcoholic liver disease or alcoholic cirrhosis. I did not realize until recently that the patient at least for many years was a very heavy drinker. Anyway, he has never had a liver biopsy which is something he needs for diagnosis. The patient has suffered increasing fatigue and also lower extremity edema for more than a couple weeks now. He states he only able to walk a few feet before he gets very short of breath and is limited. He denies any pain. Denies any cough or phlegm production. Denies any wheezing. Denies any fever or chills. He does have increased abdominal girth and lower extremity edema. His daughter is an MACHINE REPAIRMAN doctor here in the hospital. They are hoping to have the patient either transferred someplace else or to quickly have some sort of definitive diagnosis. I think he needs a liver biopsy to help to prove the diagnosis of alcoholic liver disease. I know he has recently had an MRI scan at an outside institution of his abdomen and pelvis. Currently, his medications include Lipitor, vitamin D2, Xyzal, Synthroid, Toprol-XL, metformin, insulin, and Aldactone. ALLERGIES: PENICILLIN. MEDICAL HISTORY: Heart failure, diabetes, hyperlipidemia, hypertension, and suspected alcoholic liver disease. SURGICAL HISTORY: Includes a thyroidectomy as well as left knee arthroscopy. SOCIAL HISTORY: Positive for previous tobacco use. He was a heavy drinker in the past and apparently still does drink. No illicit drug use. FAMILY HISTORY: Noncontributory. REVIEW OF SYSTEMS: CONSTITUTIONAL: Weakness and fatigue. NEUROLOGIC: Negative. HEENT: Negative. CARDIOVASCULAR: Negative. PULMONARY: Shortness of breath on exertion. GI: Increasing abdominal girth. : Negative. RHEUMATOLOGIC: Negative. IMMUNOLOGIC: Negative. ENDOCRINOLOGIC: Negative. DERMATOLOGIC; Negative. Current vital signs are reviewed, temperature is 97.5, heart rate 100, respiratory rate 17, blood pressure 108/73, mean 84. Room air saturation 97%. Appears in no acute distress. No audible wheezing. No use of accessory muscles or anything like that. HEENT: Examination is grossly unremarkable. Mucous membranes are moist. NECK: Supple, full range of motion. No adenopathy. Neck veins are flat. CARDIOVASCULAR: Examination reveals regular rhythm and rate. Heart rate 100. S1, S2 normal. No murmur. LUNGS: Clear, breath sounds equal. ABDOMEN Distended. Bowel sounds are noted. EXTREMITIES: Reveal 2+ pitting edema. SKIN: Without rash. NEUROLOGIC: Examination is brief but nonfocal. LABORATORY DATA: Includes a white count 6.2, hemoglobin 11.1, hematocrit 35.8, platelet count only 31,000. PT 21.2, INR 2.2, PTT 36.1, suggesting a coagulopathy of liver disease. Also thrombocytopenia, probably related to chronic liver disease. Sodium 129 up from 126, potassium 4.7, chloride 99, CO2 is 26, anion gap is 4. BUN and creatinine were 31 and 0.83. Bilirubin is 3.4, AST 94, ALT 36, alkaline phosphatase 236, albumin 2.0. N terminal proBNP and troponins were negative. Microbiology is pending or negative. Chest x-ray shows a very tiny small effusion, left greater than right. Abdominal ultrasound shows limited ascites and possible hepatocellular disease. Ultrasound of the axilla shows a left axillary lymph node. Current medications are reviewed. They include Lipitor, ergo, calciferol, insulin, levothyroxine, metoprolol, Narcan, Protonix, and IV of 0.9 at 75 mL an hour. The IV was turned down to 10 mL an hour. ASSESSMENT: 1. Suspect alcoholic liver disease/liver cirrhosis secondary to chronic alcohol abuse. 2. 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 3. Alcoholic induced coagulopathy. 4. History of heart failure. 5. History of diabetes. 6. Hyperlipidemia. 7. History of hypertension. 8. Hypothyroidism. PLAN: The patient in my opinion needs to be sorted out to another institution. He is really not get any answers and I believe he and his daughter who is an MACHINE REPAIRMAN doctor here is frustrated. I would recommend [facility] or [facility]. He does need a liver biopsy. I have asked to speak to Dr. Reynolds who has seen him here before in the hospital. Additional recommendations and suggestions are forthcoming. Prognosis is guarded. We turned down the IV from 75-10 mL an hour. Additional recommendations and suggestions are forthcoming. MMODL / IJN: [id number] /
[2020-01-16 17:22] LABS: Glucose,Whole Blood 214 mg/dL (75-99)
[2020-01-16] MEDS: SODIUM CHLORIDE 0.9% 1,000 ML IV SCH (17:51)
[2020-01-16 20:21] LABS: Glucose,Whole Blood 208 mg/dL (75-99)
[2020-01-16 20:56] VITALS: BP 127/64; PULSE 79; RESP 18; TEMP 97.7
[2020-01-16] MEDS ORDERED: ATORVASTATIN 40 MG TAB PO SCH (21:00)
--- NOTE | 2020-01-17 00:24 | P.HPIM ---
History of Present Illness H&P Date: 01/16/20 Chief Complaint: Generalized weakness and fatigue and GAVI Patient is 79-year-old male with a known history of hypertension, hyperlipidemia, diabetes type 2 insulin-dependent, hypothyroidism, CHF and prostate cancer diagnosed in 2007With recent admission for worsening shortness of breath secondary to pleural effusion and ascites due to underlying liver disease. Patient was found to have hepatosplenomegaly and fatty infiltration of the liver. Patient is currently on Aldactone 50 mg daily. Patient had extensive work-up done for liver etiology including hepatitis panel iron studies and ammonia level was within normal limits. TSH cortisol level, ceruloplasmin and TERRANCE are negative. Paracentesis was attempted but could not be due to no significant fluid to drain. There is a cystic mass on the kidney that has a solid component to it. Consulted Dr. Foster so that plan for either follow-up, further imaging or biopsies. Patient had outpatient MRI of the liver was done which showed no masses. Diffuse infiltrate in the liver. Most consistent with cirrhosis. Alpha- fetoprotein was normal. Patient presents to ER with complaints of generalized weakness and fatigue. Patient was having exertional dyspnea as well. Also having increasing leg swelling and abdominal girth. Denied any fever or chills. Denies any prior history of alcohol abuse. Patient does have history of previous smoking. Laboratory data showed WBC 4.6, hemoglobin 11.6 and platelets 37 INR 2.2 Sodium 126, potassium 4.6, chloride 96, BUN 30 and creatinine 0.89 Blood sugar was 251 on admission Total bilirubin 3.6 AST 99 ALT 38 and alk phos 265 troponin x1- proBNP 480 Chest x-ray showed redemonstrated small bilateral pleural effusions. Review of Systems Constitutional: Patient denies any fever or chills . \generalized weakness . no weight loss. Abdomen: Patient denied nausea vomiting and diarrhea and abdominal pain. Cardiovascular: Patient denies any chest pain or short of breath no palpitations. Respiratory: patient denied any cough is from production. + shortness of breath Neurologic: Patient denied any numbness or tingling headache. Musculoskeletal: Patient denies any complaints of joint swelling or deformity. Skin: Negative Psychiatric: Negative Endocrine: No heat or cold intolerance. No recent weight gain. Genitourinary: No dysuria or hematuria. All other 14 point ROS negative except the above Past Medical History Past Medical History: Heart Failure, Diabetes Mellitus, Hyperlipidemia, Hypertension, Liver Disease History of Any Multi-Drug Resistant Organisms: None Reported Past Surgical History: Orthopedic Surgery Additional Past Surgical History / Comment(s): Thyroid removal and arthroscopy left knee Past Psychological History: No Psychological Hx Reported Smoking Status: Former smoker Past Alcohol Use History: Occasional Past Drug Use History: None Reported - Past Family History Mother Family Medical History: No Reported History Medications and Allergies Home Medications Medication Instructions Recorded Confirmed Type Atorvastatin Calcium [Lipitor] 40 mg PO HS 12/31/19 01/15/20 History Ergocalciferol (Vitamin D2) 50,000 unit PO SAN 12/31/19 01/15/20 History [Drisdol] Levocetirizine Dihydrochloride 5 mg PO HS PRN 12/31/19 01/15/20 History [Xyzal] Levothyroxine Sodium [Synthroid] 175 mcg PO MOTUWETHFRSA 12/31/19 01/15/20 History Metoprolol Succinate [Toprol XL] 25 mg PO DAILY 12/31/19 01/15/20 History metFORMIN HCL 1,000 mg PO DAILY 12/31/19 01/15/20 History Insulin Glargine,Hum.rec.anlog 10 unit SQ DAILY #1 pen 01/04/20 01/15/20 Rx [Lantus Solostar] Spironolactone [Aldactone] 50 mg PO DAILY #60 tab 01/04/20 01/15/20 Rx Allergies Allergy/AdvReac Type Severity Reaction Status Date / Time Penicillins Allergy Swelling Verified 01/15/20 19:24 Physical Exam Vitals: Vital Signs Temp Pulse Pulse Resp BP BP Pulse Ox 01/16/20 04:35 97.7 F 99 12 129/73 97 01/16/20 00:00 105 H 18 01/15/20 20:35 97.4 F L 107 H 14 127/81 97 01/15/20 19:10 96 18 136/87 98 01/15/20 16:05 97.9 F 104 H 24 124/77 99 Intake and Output 01/15/20 01/16/20 01/16/20 22:59 06:59 14:59 Intake Total 240 720 Balance 240 720 Intake: Intake, IV Titration 240 600 Amount Sodium Chloride 0.9% 1, 240 600 000 ml @ 75 mls/hr IV . [id number] [facility] Rx#:[id number] Oral 120 Other: # Voids 1 1 Weight 90.718 kg PHYSICAL EXAMINATION: Patient is lying in the bed comfortably, no acute distress, awake alert and oriented.. HEENT: Normocephalic. Neck is supple. Pupils reactive. Nostrils clear. Oral cavity is moist. Ears reveal no drainage. Neck reveals no JVD, carotid bruits, or thyromegaly. CHEST EXAMINATION: Trachea is central. Symmetrical expansion. Bibasilar diminished sounds and no wheezing.. CARDIAC: Normal S1, S2 with no gallops. No murmurs ABDOMEN: Soft.Abdominal distention. Bowel sounds normal. No organomegaly. No abdominal bruits. Extremities: 3+ edema. No clubbing or cyanosis Neurologically awake, alert, oriented x3 with well-coordinated movements. No focal deficits noted Skin: No rash or skin lesions. Psychiatric: Coperative. Nonsuicidal Musculoskeletal: No joint swelling or deformity. Normal range of motion. Results CBC & Chem 7: 01/16/20 07:18 01/16/20 07:18 Labs: Abnormal Lab Results - Last 24 Hours (Table) 01/15/20 01/15/20 01/15/20 Range/Units 17:10 17:10 17:10 RBC 4.12 L (4.30-5.90) m/uL Hgb 11.6 L (13.0-17.5) gm/dL Hct 35.8 L (39.0-53.0) % Plt Count 37 L (150-450) k/uL Lymphocytes # 0.7 L (1.0-4.8) k/uL PT 21.2 H (9.0-12.0) sec INR 2.2 H (<1.2) APTT 36.1 H (22.0-30.0) sec Sodium 126 L (137-145) mmol/L Chloride 96 L (98-107) mmol/L Carbon Dioxide 21 L (22-30) mmol/L BUN 30 H (9-20) mg/dL Glucose 251 H (74-99) mg/dL POC Glucose (mg/dL) (75-99) mg/dL Calcium 7.5 L (8.4-10.2) mg/dL Total Bilirubin 3.6 H (0.2-1.3) mg/dL AST 99 H (17-59) U/L Alkaline Phosphatase 265 H (38-126) U/L Creatine Kinase 43 L (55-170) U/L Total Protein 5.2 L (6.3-8.2) g/dL Albumin 2.3 L (3.5-5.0) g/dL 01/15/20 01/16/20 01/16/20 Range/Units 20:44 06:52 07:18 RBC 4.12 L (4.30-5.90) m/uL Hgb 11.1 L (13.0-17.5) gm/dL Hct 35.8 L (39.0-53.0) % Plt Count 31 L (150-450) k/uL Lymphocytes # (1.0-4.8) k/uL PT (9.0-12.0) sec INR (<1.2) APTT (22.0-30.0) sec Sodium (137-145) mmol/L Chloride (98-107) mmol/L Carbon Dioxide (22-30) mmol/L BUN (9-20) mg/dL Glucose (74-99) mg/dL POC Glucose (mg/dL) 206 H 163 H (75-99) mg/dL Calcium (8.4-10.2) mg/dL Total Bilirubin (0.2-1.3) mg/dL AST (17-59) U/L Alkaline Phosphatase (38-126) U/L Creatine Kinase (55-170) U/L Total Protein (6.3-8.2) g/dL Albumin (3.5-5.0) g/dL 01/16/20 Range/Units 07:18 RBC (4.30-5.90) m/uL Hgb (13.0-17.5) gm/dL Hct (39.0-53.0) % Plt Count (150-450) k/uL Lymphocytes # (1.0-4.8) k/uL PT (9.0-12.0) sec INR (<1.2) APTT (22.0-30.0) sec Sodium 129 L (137-145) mmol/L Chloride (98-107) mmol/L Carbon Dioxide (22-30) mmol/L BUN 31 H (9-20) mg/dL Glucose 142 H (74-99) mg/dL POC Glucose (mg/dL) (75-99) mg/dL Calcium 7.3 L (8.4-10.2) mg/dL Total Bilirubin 3.4 H (0.2-1.3) mg/dL AST 94 H (17-59) U/L Alkaline Phosphatase 236 H (38-126) U/L Creatine Kinase (55-170) U/L Total Protein 4.8 L (6.3-8.2) g/dL Albumin 2.0 L (3.5-5.0) g/dL Thrombosis Risk Factor Assmnt - DVT/VTE Prophylaxis DVT/VTE Prophylaxis: Mechanical Prophylaxis ordered - Choose All That Apply Any of the Below Risk Factors Present?: Yes Each Factor Represents 1 point: Obesity (BMI >25), Swollen legs (current) Each Risk Factor Represents 3 Points: Age 75 years or older Thrombosis Risk Factor Assessment Total Risk Factor Score: 5 Thrombosis Risk Factor Assessment Level: High Risk Assessment and Plan Assessment: Worsening shortness of breath secondary to pleural effusion, ascites likely due to LIVER Cirrhosis.. Generalized weakness and fatigue. Hyponatremia likely hypovolemic Hepatosplenomegaly with fatty infiltration of the liver. Small to moderate pelvic ascites. ultrasound guidedparacentesiswas attempted but not enough fluid. Large cystic lesion lower pole of the right kidney. Outpatient follow-up with urology was recommended by Urology. Nonspecific lytic metastatic lesions on the CT History of prostate cancer diagnosed in 2007 Thrombocytopenia secondary to liver disease. Hypertension Hyperlipidemia Diabetes type 2 insulin-dependent History of thyroid cancer status post surgical resection and currently on thyroid replacement. Coagulopathy secondary to liver disease HX of smoking. Plan: Patient is being continued on IV hydration with normal saline and follow-up sodium level. Continue with home medications and GI and pulmonary was consulted. Due to underlying chronic liver diseases and cirrhosis patient is being discharged to tertiary care facility to be seen by oracle security consultant. Discussed with the [facility] transfer team and was accepted once a bed is available. Patient will most likely be transferred tomorrow morning. Prognosis guarded. Discussed with the family in detail. Time with Patient: Greater than 30
[2020-01-17] MEDS ORDERED: INSULIN DETEMIR (LEVEMIR) 100 UNIT/ML SYR SQ SCH (07:00)
[2020-01-17] MEDS ORDERED: PANTOPRAZOLE 40 MG TABLET PO SCH (07:30)
--- NOTE | 2020-01-17 17:52 | P.GSCN ---
History of Present Illness Consult date: 01/17/20 Reason for Consult: renal cyst History of present illness: Mr. Barcenas is a 79-year-old male admitted with complaints of persistent weakness, wt loss. He has known hx of arie 6 prostate cancer and is currently on active surveillance. 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 additionally it showed infiltirative liver lesions. He denies any urinary symptoms, denies any flank pain or gross hematuria. The primary team is currently planning on transferring the patient to tertiary center to further evaluate his liver lesions Review of Systems - Constitutional Reports anorexia, Reports weakness, Reports weight loss - Cardiovascular Denies chest pain, Denies shortness of breath - Respiratory Denies cough, Denies 7 - Gastrointestinal Reports abdominal pain, Reports loss of appetite - Genitourinary Denies dysuria, Denies hematuria Past Medical History Past Medical History: Heart Failure, Diabetes Mellitus, Hyperlipidemia, Hypertension, Liver Disease History of Any Multi-Drug Resistant Organisms: None Reported Past Surgical History: Orthopedic Surgery Additional Past Surgical History / Comment(s): Thyroid removal and arthroscopy left knee Past Psychological History: No Psychological Hx Reported Smoking Status: Former smoker Past Alcohol Use History: Occasional Past Drug Use History: None Reported - Past Family History Mother Family Medical History: No Reported History Medications and Allergies Home Medications Medication Instructions Recorded Confirmed Type Atorvastatin Calcium [Lipitor] 40 mg PO HS 12/31/19 01/15/20 History Ergocalciferol (Vitamin D2) 50,000 unit PO SAN 12/31/19 01/15/20 History [Drisdol] Levocetirizine Dihydrochloride 5 mg PO HS PRN 12/31/19 01/15/20 History [Xyzal] Levothyroxine Sodium [Synthroid] 175 mcg PO MOTUWETHFRSA 12/31/19 01/15/20 History Metoprolol Succinate [Toprol XL] 25 mg PO DAILY 12/31/19 01/15/20 History metFORMIN HCL 1,000 mg PO DAILY 12/31/19 01/15/20 History Insulin Glargine,Hum.rec.anlog 10 unit SQ DAILY #1 pen 01/04/20 01/15/20 Rx [Lantus Solostar] Spironolactone [Aldactone] 50 mg PO DAILY #60 tab 01/04/20 01/15/20 Rx Allergies Allergy/AdvReac Type Severity Reaction Status Date / Time Penicillins Allergy Swelling Verified 01/15/20 19:24 Surgical - Exam Vital Signs Temp Pulse Resp BP Pulse Ox 97.9 F 104 H 24 124/77 99 01/15/20 16:05 01/15/20 16:05 01/15/20 16:05 01/15/20 16:05 01/15/20 16:05 - General no distress, no pain - Eyes normal ocular movement, pale - ENT normal mucosa, no hearing loss - Respiratory normal expansion, normal respiratory effort - Abdomen Abdomen: soft, non tender - Psychiatric oriented to time, oriented to person, oriented to place Results - Labs 01/16/20 07:18 01/16/20 07:18 Abnormal Lab Results - Last 24 Hours (Table) 01/16/20 01/16/20 Range/Units 17:18 20:19 POC Glucose (mg/dL) 214 H 208 H (75-99) mg/dL - Imaging CT scan - abdomen: image reviewed (right sided bosniak III cyst) Assessment and Plan Assessment: 79 yo male admitted to the hospital with wt loss, fatigue and infiltirative liver lesion. Has hx of arie 6 prostate cancer most recent PSA is 3. 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 Current plan is to transfer patient to tertiary center for evaluation of his liver lesion and failure. -It's unlikely patient symptoms are secondary to his prostate cancer given his stable PSA and non-aggressive pathology. I discussed with him his Bosniak III cyst needs to be addressed once his liver workup is completed, given 50% chance of malignancy. given the cystic nature, I advised against renal biopsy. He is a Patient of Dr Foster and he can f/u as an outpatient for management of that cyst.
--- NOTE | 2020-01-18 19:36 | P.CONS ---
History of Present Illness - Reason for Consult Consult date: 01/16/20 Cirrhosis, ascites Requesting physician: Yanet Callaway - Chief Complaint Abdominal distension - History of Present Illness Patient transferred for full consultation can be performed. Patient with recent diagnosis of ascites and cirrhosis presenting back with increasing abdominal pain and distention. Fluid studies have not been able to be performed at this time and family are requesting transfer to tertiary center for evaluation by purification supervisor. Agree with those requests at this time. Patient can follow up locally after discharge. Past Medical History Past Medical History: Heart Failure, Diabetes Mellitus, Hyperlipidemia, Hypertension, Liver Disease History of Any Multi-Drug Resistant Organisms: None Reported Past Surgical History: Orthopedic Surgery Additional Past Surgical History / Comment(s): Thyroid removal and arthroscopy left knee Past Psychological History: No Psychological Hx Reported Smoking Status: Former smoker Past Alcohol Use History: Occasional Past Drug Use History: None Reported - Past Family History Mother Family Medical History: No Reported History Medications and Allergies Home Medications Medication Instructions Recorded Confirmed Type Atorvastatin Calcium [Lipitor] 40 mg PO HS 12/31/19 01/15/20 History Ergocalciferol (Vitamin D2) 50,000 unit PO SAN 12/31/19 01/15/20 History [Drisdol] Levocetirizine Dihydrochloride 5 mg PO HS PRN 12/31/19 01/15/20 History [Xyzal] Levothyroxine Sodium [Synthroid] 175 mcg PO MOTUWETHFRSA 12/31/19 01/15/20 History Metoprolol Succinate [Toprol XL] 25 mg PO DAILY 12/31/19 01/15/20 History metFORMIN HCL 1,000 mg PO DAILY 12/31/19 01/15/20 History Insulin Glargine,Hum.rec.anlog 10 unit SQ DAILY #1 pen 01/04/20 01/15/20 Rx [Lantus Solostar] Spironolactone [Aldactone] 50 mg PO DAILY #60 tab 01/04/20 01/15/20 Rx Allergies Allergy/AdvReac Type Severity Reaction Status Date / Time Penicillins Allergy Swelling Verified 01/15/20 19:24 Physical Exam Vitals: Vital Signs Temp Pulse Pulse Resp BP BP Pulse Ox 01/16/20 11:56 97.5 F L 101 H 17 108/73 97 01/16/20 04:35 97.7 F 99 12 129/73 97 01/16/20 00:00 105 H 18 01/15/20 20:35 97.4 F L 107 H 14 127/81 97 01/15/20 19:10 96 18 136/87 98 01/15/20 16:05 97.9 F 104 H 24 124/77 99 Intake and Output 01/15/20 01/16/20 01/16/20 22:59 06:59 14:59 Intake Total 240 720 610 Balance 240 720 610 Intake: Intake, IV Titration 240 600 610 Amount Phytonadione 5 mg In 50 Sodium Chloride 0.9% 50 ml @ 100 mls/hr IVPB ONCE STA Rx#:[id number] Sodium Chloride 0.9% 1, 240 600 560 000 ml @ 10 mls/hr IV . Q24H [facility] Rx#:[id number] Oral 120 Other: # Voids 1 1 Weight 90.718 kg Results CBC & Chem 7: 01/16/20 07:18 01/16/20 07:18 Labs: Abnormal Lab Results - Last 24 Hours (Table) 01/15/20 01/15/20 01/15/20 Range/Units 17:10 17:10 17:10 RBC 4.12 L (4.30-5.90) m/uL Hgb 11.6 L (13.0-17.5) gm/dL Hct 35.8 L (39.0-53.0) % Plt Count 37 L (150-450) k/uL Lymphocytes # 0.7 L (1.0-4.8) k/uL PT 21.2 H (9.0-12.0) sec INR 2.2 H (<1.2) APTT 36.1 H (22.0-30.0) sec Sodium 126 L (137-145) mmol/L Chloride 96 L (98-107) mmol/L Carbon Dioxide 21 L (22-30) mmol/L BUN 30 H (9-20) mg/dL Glucose 251 H (74-99) mg/dL POC Glucose (mg/dL) (75-99) mg/dL Calcium 7.5 L (8.4-10.2) mg/dL Total Bilirubin 3.6 H (0.2-1.3) mg/dL AST 99 H (17-59) U/L Alkaline Phosphatase 265 H (38-126) U/L Creatine Kinase 43 L (55-170) U/L Total Protein 5.2 L (6.3-8.2) g/dL Albumin 2.3 L (3.5-5.0) g/dL 01/15/20 01/16/20 01/16/20 Range/Units 20:44 06:52 07:18 RBC 4.12 L (4.30-5.90) m/uL Hgb 11.1 L (13.0-17.5) gm/dL Hct 35.8 L (39.0-53.0) % Plt Count 31 L (150-450) k/uL Lymphocytes # (1.0-4.8) k/uL PT (9.0-12.0) sec INR (<1.2) APTT (22.0-30.0) sec Sodium (137-145) mmol/L Chloride (98-107) mmol/L Carbon Dioxide (22-30) mmol/L BUN (9-20) mg/dL Glucose (74-99) mg/dL POC Glucose (mg/dL) 206 H 163 H (75-99) mg/dL Calcium (8.4-10.2) mg/dL Total Bilirubin (0.2-1.3) mg/dL AST (17-59) U/L Alkaline Phosphatase (38-126) U/L Creatine Kinase (55-170) U/L Total Protein (6.3-8.2) g/dL Albumin (3.5-5.0) g/dL 01/16/20 01/16/20 Range/Units 07:18 11:21 RBC (4.30-5.90) m/uL Hgb (13.0-17.5) gm/dL Hct (39.0-53.0) % Plt Count (150-450) k/uL Lymphocytes # (1.0-4.8) k/uL PT (9.0-12.0) sec INR (<1.2) APTT (22.0-30.0) sec Sodium 129 L (137-145) mmol/L Chloride (98-107) mmol/L Carbon Dioxide (22-30) mmol/L BUN 31 H (9-20) mg/dL Glucose 142 H (74-99) mg/dL POC Glucose (mg/dL) 220 H (75-99) mg/dL Calcium 7.3 L (8.4-10.2) mg/dL Total Bilirubin 3.4 H (0.2-1.3) mg/dL AST 94 H (17-59) U/L Alkaline Phosphatase 236 H (38-126) U/L Creatine Kinase (55-170) U/L Total Protein 4.8 L (6.3-8.2) g/dL Albumin 2.0 L (3.5-5.0) g/dL
[2020-01-20] MEDS ORDERED: ERGOCALCIFEROL 50,000 UNIT CAP PO SCH (09:00)
== END 2020-01-16 22:59 | disposition short-term general hospital (02) | DRG 433 ==
LOC: EC 15:14 → 5NMEDONC 18:00
PROVIDERS: ADMIT Internal Medicine; ATTEND Internal Medicine
DX: K70.31 Alcoholic cirrhosis of liver with ascites (principal); D68.4 Acquired coagulation factor deficiency; E87.1 Hypo-osmolality and hyponatremia; K76.0 Fatty (change of) liver, not elsewhere classified; R16.2 Hepatomegaly with splenomegaly, not elsewhere classified; C61 Malignant neoplasm of prostate; D69.59 Other secondary thrombocytopenia; I11.0 Hypertensive heart disease with heart failure; I50.9 Heart failure, unspecified; F10.10 Alcohol abuse, uncomplicated; E11.9 Type 2 diabetes mellitus without complications; E78.5 Hyperlipidemia, unspecified; E86.1 Hypovolemia; E89.0 Postprocedural hypothyroidism; N28.89 Other specified disorders of kidney and ureter; Z11.59 Encounter for screening for other viral diseases; Z79.4 Long term (current) use of insulin; Z79.890 Hormone replacement therapy; Z79.899 Other long term (current) drug therapy; Z85.850 Personal history of malignant neoplasm of thyroid; Z87.891 Personal history of nicotine dependence; Z88.0 Allergy status to penicillin
CPT/HCPCS: 36415; 71046; 76705; 80053; 82550; 83735; 83880; 84484; 85025; 85610; 85730; 93005; 99285